=== PATIENT | male | born 1960 | race Caucasian/White ===

== ENCOUNTER 2016-05-11 15:09 | Emergency (ER) | payer SELFPAY ==
[2016-05-11 15:55] VITALS: BP 128/89
== END 2016-05-11 17:31 | disposition left against medical advice (07) ==
LOC: ED 15:09
DX: M79.605 Pain in left leg (principal); Z53.21 Procedure and treatment not carried out due to patient leaving prior to being seen by health care provider

== ENCOUNTER 2016-05-12 08:31 | Emergency (ER) | payer SELFPAY ==
[2016-05-12 10:18] LABS: Urine Bacteria Absent (Absent); Urine Bilirubin Negative (Negative); Urine Glucose Negative (Negative); Urine Nitrite Negative (Negative)
[2016-05-12 11:02] LABS: Hematocrit 45 % (42-52); Hemoglobin 15.4 g/dl (14.0-18.0); Mean Corpuscular HGB Conc 34 g/dl (31-36); Mean Corpuscular Hemoglobin 33 pg (27-31); Mean Corpuscular Volume 96 fL (80-94); Mean Platelet Volume 7 um3 (7.4-10.4); Red Blood Count 4.72 10^6/ul (4.0-5.4); Red Cell Distribution Width 13 % (10.5-15); White Blood Count 7.9 10^3/ul (3.5-10.8)
[2016-05-12 11:13] LABS: Albumin 4.7 g/dL (3.2-5.2); BUN/Creatinine Ratio 18.9 (8-20); C Reactive Protein 1.52 mg/L (< 5.00); Calcium 9.9 mg/dL (8.6-10.3); EGFR African American 88.1 (>60); EGFR Non-African American 68.5 (>60); Globulin 3.1 g/dL (2-4); Potassium 4.1 mmol/L (3.5-5.0); Total Bilirubin 1.3 mg/dL (0.2-1.0); Total Protein 7.8 g/dL (6.4-8.9)
--- NOTE | 2016-05-12 11:16 | ED ---
Abdominal Pain/Male - HPI Summary HPI Summary: Patient presents with epigastric and left flank pain. The flank pain has been present for approximately 2 months, and the epigastric pain begins 30-60 minutes after eating and resolves after several hours spontaneously. He has a history of kidney stones and worries he's also developing another stone in addition to his epigastric pain. He denies SOB, CP, fever, back pain, blood in his urine or urinary symptoms. He had one episode of vomiting several weeks ago , but no nausea, diarrhea or constipation. - History of Current Complaint Chief Complaint: EDFlankPain Stated Complaint: LT SIDE FLANK PAIN Time Seen by Provider: 05/12/16 10:11 Hx Obtained From: Patient Onset/Duration: Gradual Onset, Lasting Weeks, Still Present Timing: Intermittent, Lasting Hours Severity Initially: Moderate Severity Currently: Severe Pain Intensity: 7 Location: Epigastric, Flank - left Radiates: No Character: Dull Aggravating Factor(s): Food Alleviating Factor(s): Spontaneous Resolution Associated Signs And Symptoms: Positive: Vomiting - x 1 - Allergies/Home Medications Allergies/Adverse Reactions: Allergies Allergy/AdvReac Type Severity Reaction Status Date / Time Cephalexin [From Keflex] Allergy Severe Rash Verified 05/11/16 15:55 Iodide Allergy Severe Rash Verified 05/11/16 15:55 Shellfish Allergy Allergy Severe Rash Verified 05/11/16 15:55 Eggs or Egg-derived Products Allergy Vomiting Verified 05/11/16 15:55 PMH/Surg Hx/FS Hx/Imm Hx Endocrine/Hematology History: Denies: Hx Diabetes Cardiovascular History: Reports: Hx Hypercholesterolemia, Hx Hypertension Denies: Hx Congestive Heart Failure Respiratory History: Denies: Hx Asthma History: Denies: Hx Renal Disease - Surgical History Surgery Procedure, Year, and Place: LT.KNEE/MENISCUS 2010, LT 4TH FINGER CRUSH INJ.W/SX 2006. June 2015 Cardiac Catherization Infectious Disease History: Denies: History Other Infectious Disease, Traveled Outside the [place] in Last 30 Days - Family History Known Family History: Positive: Cardiac Disease, Hypertension, Diabetes, Renal Disease - Social History Occupation: Unemployed Lives: With Family Alcohol Use: None Substance Use Type: Reports: None Smoking Status (MU): Never Smoked Tobacco Review of Systems Negative: Fever, Chills Negative: Chest Pain Negative: Shortness Of Breath Positive: Abdominal Pain - epigastric, Vomiting - x 1. Negative: Diarrhea, Nausea Positive: flank pain - left All Other Systems Reviewed And Are Negative: Yes Physical Exam Triage Information Reviewed: Yes Vital Signs On Initial Exam: Initial Vitals Temp Pulse Resp BP Pulse Ox 98.6 F 87 20 159/98 99 05/12/16 09:28 05/12/16 09:28 05/12/16 09:28 05/12/16 09:28 05/12/16 09:28 Vital Signs Reviewed: Yes Appearance: Positive: Well-Appearing, Well-Nourished, Pain Distress Skin: Positive: Warm, Skin Color Reflects Adequate Perfusion, Dry, Soft Head/Face: Positive: Normal Head/Face Inspection Eyes: Positive: EOMI, QI, Conjunctiva Clear ENT: Positive: Hearing grossly normal Neck: Positive: Supple, Nontender, No Lymphadenopathy Respiratory/Lung Sounds: Positive: Clear to Auscultation, Breath Sounds Present Cardiovascular: Positive: RRR Abdomen Description: Positive: Soft, CVA Tenderness (L). Negative: Nontender - mildly positive Hoffman's sign, CVA Tenderness (R), Distended, Guarding, McBurney 's Point Tenderness, Pulsatile Mass Bowel Sounds: Positive: Present Musculoskeletal: Positive: Strength/ROM Intact. Negative: Edema Left, Edema Right Neurological: Positive: Sensory/Motor Intact, Alert, Oriented to Person Place, Time, [place] Bundle Intact Distally Psychiatric: Positive: Affect/Mood Appropriate AVPU Assessment: Alert - Bailee Coma Scale Coma Scale Total: 15 Diagnostics - Vital Signs Vital Signs Temp Pulse Resp BP Pulse Ox 05/12/16 09:28 98.6 F 87 20 159/98 99 - Laboratory Lab Results: Lab Results 05/12/16 05/12/16 Range/Units 10:00 10:18 WBC 7.9 (3.5-10.8) 10^3/ul RBC 4.72 (4.0-5.4) 10^6/ul Hgb 15.4 (14.0-18.0) g/dl Hct 45 (42-52) % MCV 96 H (80-94) fL MCH 33 H (27-31) pg MCHC 34 (31-36) g/dl RDW 13 (10.5-15) % Plt Count 327 (150-450) 10^3/ul MPV 7 L (7.4-10.4) um3 Neut % (Auto) 67.4 (38-83) % Lymph % (Auto) 20.2 L (25-47) % [place] % (Auto) 9.8 H (1-9) % Eos % (Auto) 2.2 (0-6) % Baso % (Auto) 0.4 (0-2) % Absolute Neuts (auto) 5.3 (1.5-7.7) 10^3/ul Absolute Lymphs (auto) 1.6 (1.0-4.8) 10^3/ul Absolute Monos (auto) 0.8 (0-0.8) 10^3/ul Absolute Eos (auto) 0.2 (0-0.6) 10^3/ul Absolute Basos (auto) 0 (0-0.2) 10^3/ul Absolute Nucleated RBC 0 10^3/ul Nucleated RBC % 0.1 Urine Color Yellow Urine Appearance Cloudy Urine pH 5.0 (5-9) Ur Specific [place] 1.016 (1.010-1.030) Urine Protein Negative (Negative) Urine Ketones Negative (Negative) Urine Blood 3+ H (Negative) Urine Nitrate Negative (Negative) Urine Bilirubin Negative (Negative) Urine Urobilinogen Negative (Negative) Ur Leukocyte Esterase Negative (Negative) Urine WBC (Auto) Absent (Absent) Urine RBC (Auto) 3+(>10/hpf) H (Absent) Ur Squamous Epith Cells Present H (Absent) Uric Acid Crystals Present H (Absent) Urine Bacteria Absent (Absent) Urine Glucose Negative (Negative) Result Diagrams: 05/12/16 10:18 05/12/16 10:18 Lab Statement: Any lab studies that have been ordered have been reviewed, and results considered in the medical decision making process. - Ultrasound No standard instances Ultrasound Interpretation: No Acute Changes Ultrasound Interpretation Completed By: Radiologist Re-Evaluation - Re-Evaluation First Eval Re-Evaluation Time: 12:45 Change: Improved - pain has decreased Abdominal Pain Fem Course/Dx - Diagnoses Differential Diagnosis/HQI/PQRI: Appendicitis, Constipation, Gall Bladder Disease, Hepatitis, Pancreatitis, Renal Colic, Ureteral Stone, Urinary Tract Infection Provider Diagnoses: Abdominal pain Discharge - Discharge Plan Condition: Stable Disposition: HOME Prescriptions: HYDROcodone/ACETAMIN 5-325 MG* [[place] 5-325 TAB*] 1 tab PO Q6H PRN #12 tab MDD 4 tabs PRN Reason: Pain Patient Education Materials: Abdominal Pain (ED) Referrals: Fay Tilley MD [Primary Care Provider] - Additional Instructions: Please take 800mg of ibuprofen three times daily with meals for the next 5-7 days to decrease pain. Follow-up with your primary care provider in the next 3- 5 days for evaluation and to discuss a plan of care going forward. You can use [place] for pain not controlled by ibuprofen. Return to the emergency department if your symptoms worsen.
--- NOTE | 2016-05-12 11:54 | RAD ---
Indication: Epigastric pain postprandial. Comparison: January 15, 2016 CT. Technique: Complete abdominal ultrasound. Report: Normal diameter abdominal aorta. Appropriate direction flow documented in the portal and hepatic veins. 17 cm cephalocaudal liver is echogenic consistent with fatty infiltration. No focal hepatic lesions evident. Adequately distended gallbladder with 2.5 mm normal thickness wall is remarkable for a low suspicion 2 mm intermediate echogenicity structure along the mid anterior wall most consistent with a polyp. No echogenic shadowing foci to indicate cholelithiasis. Negative for pericholecystic fluid. The pancreatic tail is partially obscured due to bowel gas with the visualized pancreas unremarkable. Unremarkable 8.5 x 3.4 x 4.1 cm spleen. Negative for ascites. 10.0 x 4.3 x 4.4 cm RIGHT kidney with normal cortical echogenicity is unremarkable. Negative for focal lesions, conspicuous stones, or hydronephrosis. 10.6 x 5.4 x 4.6 cm LEFT kidney demonstrates normal cortical echogenicity. 1.5 x 1.4 cm echogenic shadowing calyceal stone at the inferior pole corresponding with prior CT finding. Negative for hydronephrosis. No renal cortical lesions evident. IMPRESSION: 1. Fatty infiltration of the liver. 2. 2 mm probable cholesterol or inflammatory polyp. Gallbladder polyps 6mm or smaller have extremely low risk of malignancy and typically do not warrant follow up. On occasion polyps may actually represent small gallstones adherent to the gallbladder wall at surgery. 3. Grossly unchanged 1.5 x 1.4 cm calyceal stone lower pole LEFT kidney. Negative for hydronephrosis.
[2016-05-12] MEDS ORDERED: Ketorolac INJ* 30 MG/ML 1 ML VIAL IV ONE (12:04)
[2016-05-12] MEDS ORDERED: NS 0.9% 1000 ML* 1,000 ML IV ONE (12:04)
[2016-05-12] MEDS ORDERED: Ketorolac INJ* 30 MG/ML 1 ML VIAL ONE (12:06)
[2016-05-12] MEDS ORDERED: HYDROcodone/ACETAMIN 5-325 MG* 1 TAB PO ONE (13:26)
[2016-05-12 13:31] VITALS: BP 110/93
== END 2016-05-12 13:43 | disposition home or self-care (01) ==
LOC: ED 08:31
DX: R10.13 Epigastric pain (principal); Z88.1 Allergy status to other antibiotic agents
CPT/HCPCS: 36415; 76700; 80053; 81003; 81015; 82150; 83605; 83690; 84484; 85025; 86140; 93005; 96360; 96374; 99283; J1885

== ENCOUNTER 2016-07-28 12:12 | Emergency (ER) | payer OTHER ==
[2016-07-28] MEDS ORDERED: Thiamine IV* 100 MG, Folic Acid IV* 1 MG, Multiple Vitamin IV ADULT* 10 ML in NS 0.9% 1... IV ONE (13:17)
[2016-07-28] MEDS ORDERED: Magnesium Sulfate 2 GM IV* 2 GM/50 ML BAG IVPB ONE (13:17)
--- NOTE | 2016-07-28 13:45 | RAD ---
Indication: Shortness of breath, chest pain. Anxiety. Alcohol and analgesic pharmaceutical abuse. Previous myocardial infarction and PE in 2016. Comparison: January 15, [address] March 05, [address] Technique: Upright AP 1325 hours Report: Clear lungs and pleural spaces. Negative for pneumothorax. The heart, pulmonary vasculature, and mediastinal contours are unremarkable. Unremarkable osseous structures and soft tissue contours. IMPRESSION: No evidence for acute intrathoracic disease.
[2016-07-28 14:00] LABS: Hematocrit 48 % (42-52); Hemoglobin 16.4 g/dl (14.0-18.0); Mean Corpuscular HGB Conc 34 g/dl (31-36); Mean Corpuscular Hemoglobin 33 pg (27-31); Mean Corpuscular Volume 95 fL (80-94); Mean Platelet Volume 7 um3 (7.4-10.4); Red Blood Count 5.04 10^6/ul (4.0-5.4); Red Cell Distribution Width 14 % (10.5-15)
[2016-07-28] MEDS ORDERED: LORazepam INJ* 2 MG/ML 1 ML VIAL IV ONE ×2 (14:05→19:51)
[2016-07-28 14:09] LABS: Urine Bacteria Absent (Absent); Urine Bilirubin Negative (Negative); Urine Glucose Negative (Negative); Urine Nitrite Negative (Negative)
[2016-07-28] MEDS ORDERED: Magnesium Sulfate IV* 0.5 GM/ML 2 ML VIAL (1 GM) ONE (14:12)
[2016-07-28 14:13] LABS: ALT 20 U/L (7-52); AST 23 U/L (13-39); Albumin 4.6 g/dL (3.2-5.2); Alkaline Phosphatase 77 U/L (34-104); Anion Gap 14 mmol/L (2-11); BUN/Creatinine Ratio 14.5 (8-20); Blood Urea Nitrogen 17 mg/dL (6-24); CO2 Carbon Dioxide 20 mmol/L (22-32); Calcium 9.2 mg/dL (8.6-10.3); Chloride 101 mmol/L (101-111); EGFR African American 82.9 (>60); EGFR Non-African American 64.5 (>60); Glucose 95 mg/dL (70-100); Potassium 4.5 mmol/L (3.5-5.0); Sodium 135 mmol/L (133-145); Total Protein 7.6 g/dL (6.4-8.9)
[2016-07-28 14:15] LABS: Benzodiazepine Urine Screen None Detected (None Detect)
[2016-07-28 14:16] LABS: Acetaminophen < 15 mcg/mL; Alcohol 359 mg/dL (<10); Salicylate < 2.50 mg/dL (<30)
[2016-07-28 14:26] LABS: TSH (Thyroid Stimulating Horm) 0.31 mcIU/mL (0.34-5.60)
[2016-07-28] MEDS ORDERED: Morphine INJ* 4 MG/ML 1 ML SYRINGE IV ONE ×3 (15:11→19:51)
[2016-07-28] MEDS ORDERED: Morphine INJ* 4 MG/ML 1 ML SYRINGE ONE ×2 (15:12→17:36)
--- NOTE | 2016-07-28 22:48 | ED ---
Kelley Chase Claudia, scribed for Miquel Dang MD on 07/28/16 at 1321 . HPI Chest Pain - HPI Summary HPI Summary: 55 year old male presents to the ED with mid-sternal CP. Pt notes sudden onset of sharp intermittent pain (7/10) 2 days ago. He notes that he woke up with the pain this am and it has been fairly constant since. He notes PMHx of DVT ( January 2016) and [place]. Pt is unsure if he has been experiencing any calf swelling Pt does admit to difficulty breathing. He notes no aggravating Sx but admits to taking pain killers at home which have not alleviated his Sx. He notes that he would not nml come to the ED but he is very uncomfortable and does not feel well. - History of Current Complaint Chief Complaint: EDChestWallPain Hx Obtained From: Patient Onset/Duration: Started Days Ago - 2 days ago Timing: Intermittent Pain Intensity: 7 Pain Scale Used: 0-10 Numeric Chest Pain Location: Discrete at:, Mid Sternal Chest Pain Radiates: No Character: Sharp/Stabbing Aggravating Factor(s): Nothing Alleviating Factor(s): Nothing Associated Signs and Symptoms: Positive: Chest Pain, Shortness of Breath - Additional Pertinent History Primary Care Physician: [id number] - Allergy/Home Medications Allergies/Adverse Reactions: Allergies Allergy/AdvReac Type Severity Reaction Status Date / Time Cephalexin [From Keflex] Allergy Severe Rash Verified 05/11/16 15:55 Iodide Allergy Severe Rash Verified 05/11/16 15:55 Shellfish Allergy Allergy Severe Rash Verified 05/11/16 15:55 Eggs or Egg-derived Products Allergy Vomiting Verified 05/11/16 15:55 PMH/Surg Hx/FS Hx/Imm Hx Previously Healthy: Yes Endocrine/Hematology History: Denies: Hx Diabetes Cardiovascular History: Reports: Hx Hypercholesterolemia, Hx Hypertension Denies: Hx Congestive Heart Failure Respiratory History: Denies: Hx Asthma History: Denies: Hx Renal Disease - Surgical History Surgery Procedure, Year, and Place: LT.KNEE/MENISCUS 2010, LT 4TH FINGER CRUSH INJ.W/SX 2006. June 2015 Cardiac Catherization Infectious Disease History: Denies: History Other Infectious Disease, Traveled Outside the [place] in Last 30 Days - Family History Known Family History: Positive: Cardiac Disease, Hypertension, Diabetes, Renal Disease - Social History Occupation: Employed Full-time Lives: With Family - female friend Alcohol Use: Weekly Substance Use Type: Reports: None Smoking Status (MU): Never Smoked Tobacco Review of Systems Constitutional: Negative Eyes: Negative ENT: Negative Positive: Chest Pain Positive: Shortness Of Breath Gastrointestinal: Negative Genitourinary: Negative Musculoskeletal: Negative Skin: Negative Neurological: Negative Psychological: Normal All Other Systems Reviewed And Are Negative: Yes Physical Exam Triage Information Reviewed: Yes Vital Signs On Initial Exam: Initial Vitals Temp Pulse Resp BP Pulse Ox 98.2 F 102 26 151/92 99 07/28/16 12:14 07/28/16 12:14 07/28/16 12:14 07/28/16 12:14 07/28/16 12:14 Vital Signs Reviewed: Yes Appearance: Positive: Well-Appearing, No Pain Distress Skin: Positive: Warm, Skin Color Reflects Adequate Perfusion, Dry Head/Face: Positive: Normal Head/Face Inspection Eyes: Positive: Normal ENT: Positive: Normal ENT inspection Neck: Positive: Supple, Nontender Respiratory/Lung Sounds: Positive: Clear to Auscultation - grossly clear with phonation during breaths, Breath Sounds Present Cardiovascular: Positive: RRR Abdomen Description: Positive: Nontender, Soft Musculoskeletal: Positive: Normal Neurological: Positive: Normal Psychiatric: Positive: Anxious - and seems intoxicated Diagnostics - Vital Signs Vital Signs Temp Pulse Resp BP Pulse Ox 07/28/16 12:14 98.2 F 102 26 151/92 99 - Laboratory Lab Results: Lab Results 07/28/16 07/28/16 07/28/16 Range/Units 13:45 13:45 13:45 WBC 6.0 (3.5-10.8) 10^3/ul RBC 5.04 (4.0-5.4) 10^6/ul Hgb 16.4 (14.0-18.0) g/dl Hct 48 (42-52) % MCV 95 H (80-94) fL MCH 33 H (27-31) pg MCHC 34 (31-36) g/dl RDW 14 (10.5-15) % Plt Count 363 (150-450) 10^3/ul MPV 7 L (7.4-10.4) um3 Neut % (Auto) 50.2 (38-83) % Lymph % (Auto) 40.0 (25-47) % [place] % (Auto) 8.4 (1-9) % Eos % (Auto) 1.0 (0-6) % Baso % (Auto) 0.4 (0-2) % Absolute Neuts (auto) 3.0 (1.5-7.7) 10^3/ul Absolute Lymphs (auto) 2.4 (1.0-4.8) 10^3/ul Absolute Monos (auto) 0.5 (0-0.8) 10^3/ul Absolute Eos (auto) 0.1 (0-0.6) 10^3/ul Absolute Basos (auto) 0 (0-0.2) 10^3/ul Absolute Nucleated RBC 0.01 10^3/ul Nucleated RBC % 0.2 Sodium 135 (133-145) mmol/L Potassium 4.5 (3.5-5.0) mmol/L Chloride 101 (101-111) mmol/L Carbon Dioxide 20 L (22-32) mmol/L Anion Gap 14 H (2-11) mmol/L BUN 17 (6-24) mg/dL Creatinine 1.17 (0.67-1.17) mg/dL Est GFR ( Amer) 82.9 (>60) Est GFR (Non-Af Amer) 64.5 (>60) BUN/Creatinine Ratio 14.5 (8-20) Glucose 95 (70-100) mg/dL Lactic Acid (0.5-2.0) mmol/L Calcium 9.2 (8.6-10.3) mg/dL Total Bilirubin 0.60 (0.2-1.0) mg/dL AST 23 (13-39) U/L ALT 20 (7-52) U/L Alkaline Phosphatase 77 (34-104) U/L Troponin I 0.00 (<0.04) ng/mL Total Protein 7.6 (6.4-8.9) g/dL Albumin 4.6 (3.2-5.2) g/dL Globulin 3.0 (2-4) g/dL Albumin/Globulin Ratio 1.5 (1-3) TSH 0.31 L (0.34-5.60) mcIU/mL Urine Color Straw Urine Appearance Clear Urine pH 5.0 (5-9) Ur Specific [place] 1.005 L (1.010-1.030) Urine Protein Negative (Negative) Urine Ketones Negative (Negative) Urine Blood 1+ H (Negative) Urine Nitrate Negative (Negative) Urine Bilirubin Negative (Negative) Urine Urobilinogen Negative (Negative) Ur Leukocyte Esterase Negative (Negative) Urine WBC (Auto) Absent (Absent) Urine RBC (Auto) Trace(0-2/hpf) (Absent) Urine Bacteria Absent (Absent) Urine Glucose Negative (Negative) Salicylates < 2.50 (<30) mg/dL Urine Opiates Screen (None Detect) Acetaminophen < 15 mcg/mL Ur Barbiturates Screen (None Detect) Ur Phencyclidine Scrn (None Detect) Ur Amphetamines Screen (None Detect) U Benzodiazepines Scrn (None Detect) Urine Cocaine Screen (None Detect) U Cannabinoids Screen (None Detect) Serum Alcohol 359 H (<10) mg/dL 07/28/16 07/28/16 07/28/16 Range/Units 13:45 13:45 16:45 WBC (3.5-10.8) 10^3/ul RBC (4.0-5.4) 10^6/ul Hgb (14.0-18.0) g/dl Hct (42-52) % MCV (80-94) fL MCH (27-31) pg MCHC (31-36) g/dl RDW (10.5-15) % Plt Count (150-450) 10^3/ul MPV (7.4-10.4) um3 Neut % (Auto) (38-83) % Lymph % (Auto) (25-47) % [place] % (Auto) (1-9) % Eos % (Auto) (0-6) % Baso % (Auto) (0-2) % Absolute Neuts (auto) (1.5-7.7) 10^3/ul Absolute Lymphs (auto) (1.0-4.8) 10^3/ul Absolute Monos (auto) (0-0.8) 10^3/ul Absolute Eos (auto) (0-0.6) 10^3/ul Absolute Basos (auto) (0-0.2) 10^3/ul Absolute Nucleated RBC 10^3/ul Nucleated RBC % Sodium (133-145) mmol/L Potassium (3.5-5.0) mmol/L Chloride (101-111) mmol/L Carbon Dioxide (22-32) mmol/L Anion Gap (2-11) mmol/L BUN (6-24) mg/dL Creatinine (0.67-1.17) mg/dL Est GFR ( Amer) (>60) Est GFR (Non-Af Amer) (>60) BUN/Creatinine Ratio (8-20) Glucose (70-100) mg/dL Lactic Acid 3.1 H* (0.5-2.0) mmol/L Calcium (8.6-10.3) mg/dL Total Bilirubin (0.2-1.0) mg/dL AST (13-39) U/L ALT (7-52) U/L Alkaline Phosphatase (34-104) U/L Troponin I 0.00 (<0.04) ng/mL Total Protein (6.4-8.9) g/dL Albumin (3.2-5.2) g/dL Globulin (2-4) g/dL Albumin/Globulin Ratio (1-3) TSH (0.34-5.60) mcIU/mL Urine Color Urine Appearance Urine pH (5-9) Ur Specific [place] (1.010-1.030) Urine Protein (Negative) Urine Ketones (Negative) Urine Blood (Negative) Urine Nitrate (Negative) Urine Bilirubin (Negative) Urine Urobilinogen (Negative) Ur Leukocyte Esterase (Negative) Urine WBC (Auto) (Absent) Urine RBC (Auto) (Absent) Urine Bacteria (Absent) Urine Glucose (Negative) Salicylates (<30) mg/dL Urine Opiates Screen None detected (None Detect) Acetaminophen mcg/mL Ur Barbiturates Screen None detected (None Detect) Ur Phencyclidine Scrn None detected (None Detect) Ur Amphetamines Screen None detected (None Detect) U Benzodiazepines Scrn None detected (None Detect) Urine Cocaine Screen None detected (None Detect) U Cannabinoids Screen None detected (None Detect) Serum Alcohol (<10) mg/dL Result Diagrams: 07/28/16 13:45 07/28/16 13:45 Lab Statement: Any lab studies that have been ordered have been reviewed, and results considered in the medical decision making process. - Radiology CXR Xray Interpretation: No Acute Changes - NO EVIDENCE FOR ACUTE INTRATHORACIC DISEASE Radiology Interpretation Completed By: Radiologist - EKG 12:29 Cardiac Rate: Tachycardia EKG Rhythm: Sinus Tachycardia - 108 beats/min EKG Interpretation: diffuse non-specific changes 17:09 Cardiac Rate: Tachycardia EKG Rhythm: Sinus Tachycardia - 101 beats/min EKG Interpretation: non specific changes Chest Pain Course/Dx - Course Course Of Treatment: Mr. De presented to the ED in the company of his ex- girlfriend quite intoxicated. She brought him in with a concern for suicidal ideation. They broke up a few weeks ago because he was abusing pain medications. He has been drinking heavily since the break up and filled a script for narcotics recently that is almost gone. His medical W/U is OK and we are waiting for him to sober up to have a MHE. - Diagnoses Provider Diagnoses: Alcohol intoxication, Chest pain - Provider Notifications Discussed Care Of Patient With: Dr. Palacios at change of shift Instructed by Provider To: Other - MEDICALLY CLEARED FOR MHE AT 2400 Discharge - Discharge Plan Condition: Stable Disposition: HOME Discharge Disposition Comment: Sign-out, waiting for medical clerance at 2400 Patient Education Materials: Chest Wall Pain (ED) Referrals: Fay Tilley MD [Primary Care Provider] - The documentation as recorded by the Kelley chavez Claudia accurately reflects the service I personally performed and the decisions made by me, Miquel Dang MD.
[2016-07-29 02:39] VITALS: BP 159/96
== END 2016-07-29 02:36 | disposition home or self-care (01) ==
LOC: ED 12:12
DX: R07.9 Chest pain, unspecified (principal); F10.129 Alcohol abuse with intoxication, unspecified; F41.9 Anxiety disorder, unspecified; R06.02 Shortness of breath
CPT/HCPCS: 36415; 71010; 80053; 80307; 80320; 80329; 81003; 81015; 83605; 84443; 84484; 85025; 93005; 96374; 96375; 99284; G0480; J2060; J2270; J3475

== ENCOUNTER 2016-10-27 14:14 | Emergency (ER) | payer OTHER ==
[2016-10-27 16:18] LABS: Hematocrit 42 % (42-52); Hemoglobin 14.1 g/dl (14.0-18.0); Mean Corpuscular HGB Conc 34 g/dl (31-36); Mean Corpuscular Hemoglobin 34 pg (27-31); Mean Corpuscular Volume 102 fL (80-94); Mean Platelet Volume 7 um3 (7.4-10.4); Red Blood Count 4.09 10^6/ul (4.0-5.4); Red Cell Distribution Width 14 % (10.5-15); White Blood Count 12.2 10^3/ul (3.5-10.8)
[2016-10-27 16:31] LABS: Albumin 4.7 g/dL (3.2-5.2); BUN/Creatinine Ratio 14.7 (8-20); Calcium 9.4 mg/dL (8.6-10.3); EGFR African American 69.7 (>60); EGFR Non-African American 54.2 (>60); Potassium 3.9 mmol/L (3.5-5.0); Total Bilirubin 0.8 mg/dL (0.2-1.0); Total Protein 7.7 g/dL (6.4-8.9)
[2016-10-27 16:32] LABS: Urine Bacteria Absent (Absent); Urine Bilirubin Negative (Negative); Urine Glucose Negative (Negative); Urine Nitrite Negative (Negative)
[2016-10-27] MEDS ORDERED: HYDROmorphone* 1 MG/ML 1 ML SYR IV ONE (17:06)
[2016-10-27] MEDS ORDERED: Ondansetron INJ* 2 MG/ML VIAL IV ONE (17:06)
[2016-10-27] MEDS ORDERED: NS 0.9% 1000 ML* 1,000 ML IV ONE (17:06)
[2016-10-27] MEDS ORDERED: HYDROmorphone* 1 MG/ML 1 ML SYR ONE (17:13)
[2016-10-27 17:52] LABS: C Reactive Protein 2.4 mg/L (< 5.00)
[2016-10-27] MEDS ORDERED: HYDROmorphone* 1 MG/ML 1 ML SYR IV SLOW PU ONE (17:54)
--- NOTE | 2016-10-27 17:56 | RAD ---
Indication: Left flank pain. CT of the abdomen and pelvis was performed without oral or IV contrast administration. Coronal and sagittal reconstructed images were obtained. The lung bases demonstrate no pleural fluid, nodules or masses. Heart is of normal size without evidence of pericardial effusion. Liver is normal in size. It is diffusely decreased in density consistent with hepatic steatosis. The spleen is normal in size. No adrenal masses are noted. The kidneys demonstrate moderate degree of left hydronephrosis with left hydroureter. There is a calculi in the distal left ureter just adjacent to the ureterovesicular junction measuring 5 mm. The right kidney demonstrates no hydronephrosis. Aorta and inferior vena cava are grossly unremarkable. The retroperitoneal lymphadenopathy is noted. The appendix is visualized and is normal. CT of the pelvis demonstrates no dilated loops of bowel. The urinary bladder is unremarkable. No free fluid is identified. IMPRESSION: 5 mm calculi within the left ureterovesicular Junction with left hydronephrosis and hydroureter. Multiple additional calculi is noted in the lower pole of the left kidney.
--- NOTE | 2016-10-27 18:12 | RAD ---
Indication: Left flank pain. Flat plate of the abdomen demonstrates bowel gas pattern to be unremarkable. Several phleboliths are noted in the pelvis. There appears to be a single calcification at the level of the left ureterovesicular junction. IMPRESSION: Multiple phleboliths are seen in the pelvis.
[2016-10-27 19:30] VITALS: BP 135/84
--- NOTE | 2016-10-27 19:48 | ED ---
Emanuel Chase SooYoung, scribed for Rand Hernadez MD on 10/27/16 at 1711 . Back Pain - HPI Summary HPI Summary: A 55 y/o M presents to ED with L flank pain radiating to L groin onset 0300 early this AM. Pert PMHx: kidney stones. Associated sx: multiple episodes hematuria. Rates the pain as worse than 10/10. Pt denies taking blood thinners. Other PMHx: HTN, DVT. - History of Current Complaint Chief Complaint: EDFlankPain Stated Complaint: LT FLANK PAIN, URINATING BLOOD Hx Obtained From: Patient, Family/[employer] Officer - girlfriend Onset/Duration: Sudden Onset, Lasting Hours, Still Present Onset/Duration: Started Hours Ago, Atraumatic, Still Present Timing: Constant Back Pain Location: Is Discrete @ - L flank/L groin Severity Initially: Severe Severity Currently: Severe Pain Intensity: 10 Pain Scale Used: 0-10 Numeric Character: Sharp Aggravating Symptom(s): Nothing Alleviating Symptom(s): Nothing Associated Signs And Symptoms: Positive: Other - pos: hematuria. Negative: Fever Related History: Similar Episode Dx As - kidney stone - Allergies/Home Medications Allergies/Adverse Reactions: Allergies Allergy/AdvReac Type Severity Reaction Status Date / Time Cephalexin [From Keflex] Allergy Severe Rash Verified 10/27/16 17:32 Iodide Allergy Severe Rash Verified 10/27/16 17:32 Shellfish Allergy Allergy Severe Rash Verified 10/27/16 17:32 Eggs or Egg-derived Products Allergy Vomiting Verified 10/27/16 17:32 PMH/Surg Hx/FS Hx/Imm Hx Previously Healthy: No Endocrine/Hematology History: Denies: Hx Diabetes Cardiovascular History: Reports: Hx Hypercholesterolemia, Hx Hypertension Denies: Hx Congestive Heart Failure, Hx Pacemaker/ICD, Other Cardiovascular Problems/Disorders Respiratory History: Reports: Other Respiratory Problems/Disorders - PE 2016 Denies: Hx Asthma History: Reports: Hx Chronic Renal Failure - creat elevated Psychiatric History: Denies: Hx Eating Disorder - Surgical History Surgery Procedure, Year, and Place: LT.KNEE/MENISCUS 2010, LT 4TH FINGER CRUSH INJ.W/SX 2006. June 2015 Cardiac Catherization Infectious Disease History: No Infectious Disease History: Denies: History Other Infectious Disease, Traveled Outside the [place] in Last 30 Days - Family History Known Family History: Positive: Cardiac Disease, Hypertension, Diabetes, Renal Disease - Social History Occupation: Employed Full-time Lives: Alone Alcohol Use: Weekly Hx Substance Use: No Substance Use Type: Reports: None Hx Tobacco Use: No Smoking Status (MU): Never Smoked Tobacco Review of Systems Constitutional: Negative Negative: Fever Cardiovascular: Negative Respiratory: Negative Gastrointestinal: Negative Positive: flank pain - L radiating to groin , hematuria Skin: Negative Neurological: Negative Psychological: Normal All Other Systems Reviewed And Are Negative: Yes Physical Exam Triage Information Reviewed: Yes Vital Signs On Initial Exam: Initial Vitals Temp Pulse Resp BP Pulse Ox 97.8 F 76 17 121/79 99 10/27/16 14:27 10/27/16 14:27 10/27/16 14:27 10/27/16 14:27 10/27/16 14:27 Vital Signs Reviewed: Yes Appearance: Positive: Well-Appearing, Well-Nourished, Pain Distress - MODERATE Skin: Positive: Warm, Skin Color Reflects Adequate Perfusion Head/Face: Positive: Normal Head/Face Inspection Eyes: Positive: Conjunctiva Clear ENT: Positive: Normal ENT inspection Neck: Positive: Supple Respiratory/Lung Sounds: Positive: Clear to Auscultation, Breath Sounds Present Cardiovascular: Positive: RRR, Pulses are Symmetrical in both Upper and Lower Extremities. Negative: Murmur Abdomen Description: Positive: Soft, CVA Tenderness (L). Negative: CVA Tenderness (R), Distended, Guarding, McBurney's Point Tenderness, Peritoneal Signs, Pulsatile Mass Bowel Sounds: Positive: Present Musculoskeletal: Positive: Strength/ROM Intact Neurological: Positive: Sensory/Motor Intact, Alert, Oriented to Person Place, Time Psychiatric: Positive: Normal Diagnostics - Vital Signs Vital Signs Temp Pulse Resp BP Pulse Ox 10/27/16 16:54 97.5 F 72 20 131/79 99 10/27/16 16:17 97.9 F 77 17 121/79 100 10/27/16 14:30 97.9 F 77 17 121/79 100 10/27/16 14:27 97.8 F 76 17 121/79 99 - Laboratory Lab Results: Lab Results 10/27/16 10/27/16 10/27/16 Range/Units 16:05 16:05 16:05 WBC 12.2 H (3.5-10.8) 10^3/ul RBC 4.09 (4.0-5.4) 10^6/ul Hgb 14.1 (14.0-18.0) g/dl Hct 42 (42-52) % MCV 102 H (80-94) fL MCH 34 H (27-31) pg MCHC 34 (31-36) g/dl RDW 14 (10.5-15) % Plt Count 285 (150-450) 10^3/ul MPV 7 L (7.4-10.4) um3 Neut % (Auto) 74.5 (38-83) % Lymph % (Auto) 12.8 L (25-47) % [place] % (Auto) 10.0 H (1-9) % Eos % (Auto) 1.9 (0-6) % Baso % (Auto) 0.8 (0-2) % Absolute Neuts (auto) 9.1 H (1.5-7.7) 10^3/ul Absolute Lymphs (auto) 1.6 (1.0-4.8) 10^3/ul Absolute Monos (auto) 1.2 H (0-0.8) 10^3/ul Absolute Eos (auto) 0.2 (0-0.6) 10^3/ul Absolute Basos (auto) 0.1 (0-0.2) 10^3/ul Absolute Nucleated RBC 0.01 10^3/ul Nucleated RBC % 0.1 Sodium 135 (133-145) mmol/L Potassium 3.9 (3.5-5.0) mmol/L Chloride 103 (101-111) mmol/L Carbon Dioxide 23 (22-32) mmol/L Anion Gap 9 (2-11) mmol/L BUN 20 (6-24) mg/dL Creatinine 1.36 H (0.67-1.17) mg/dL Est GFR ( Amer) 69.7 (>60) Est GFR (Non-Af Amer) 54.2 (>60) BUN/Creatinine Ratio 14.7 (8-20) Glucose 96 (70-100) mg/dL Calcium 9.4 (8.6-10.3) mg/dL Total Bilirubin 0.80 (0.2-1.0) mg/dL AST 25 (13-39) U/L ALT 20 (7-52) U/L Alkaline Phosphatase 57 (34-104) U/L Total Protein 7.7 (6.4-8.9) g/dL Albumin 4.7 (3.2-5.2) g/dL Globulin 3.0 (2-4) g/dL Albumin/Globulin Ratio 1.6 (1-3) Urine Color Yellow Urine Appearance Cloudy Urine pH 5.0 (5-9) Ur Specific [place] 1.017 (1.010-1.030) Urine Protein Negative (Negative) Urine Ketones Negative (Negative) Urine Blood 1+ H (Negative) Urine Nitrate Negative (Negative) Urine Bilirubin Negative (Negative) Urine Urobilinogen Negative (Negative) Ur Leukocyte Esterase Negative (Negative) Urine WBC (Auto) Absent (Absent) Urine RBC (Auto) 1+(3-5/hpf) H (Absent) Uric Acid Crystals Present H (Absent) Urine Bacteria Absent (Absent) Urine Glucose Negative (Negative) Result Diagrams: 10/27/16 16:05 10/27/16 16:05 Lab Statement: Any lab studies that have been ordered have been reviewed, and results considered in the medical decision making process. - Radiology ABD XR Xray Interpretation: Positive (See Comments) - IMPRESSION: Multiple phleboliths are seen in the pelvis. Radiology Interpretation Completed By: Radiologist - CT ABD/PEL CT CT Interpretation: Positive (See Comments) - IMPRESSION: 5 mm calculi within the left ureterovesicular Junction with left hydronephrosis and hydroureter. Multiple additional calculi is noted in the lower pole of the left kidney. CT Interpretation Completed By: Radiologist Re-Evaluation - Re-Evaluation 1 Re-Evaluation Time: 17:50 Change: Unchanged Comment: Pt states still being in pain, will order pain meds. 2 Re-Evaluation Time: 18:39 Change: Improved Comment: Discussing dispo with pt and girlfriend. Will f/u with Dr. Bae, rx Flomax and Percocet, told to strain all urine. Back Pain Course/Dx - Course Course Of Treatment: Pt is a 55 y/o M presenting with L flank pain radiating to L groin onset 0300 early this AM. Pert PMHx: kidney stones. Associated sx: multiple episodes hematuria. Denies taking blood thinners. Other PMHx: HTN on meds, DVT. Pt given fluids, Dilaudid, Zofran in ED. UA results are neg WBC, but show RBCs and blood. CRP is WNL. ABD XR shows multiple phleboliths are seen in the pelvis. ABD/PEL CT shows "5 mm calculi within the left ureterovesicular Junction with left hydronephrosis and hydroureter. Multiple additional calculi is noted in the lower pole of the left kidney.". Discussed with Dr. Bae by phone. D/C home with Flomax and Percocet, f/u with Dr. Bae on 10/31/16 if needed, Dr. Bae thinks the stone has a 90% chance that it may pass on its own. - Diagnoses Differential Diagnosis/HQI/PQRI: Positive: Neoplasm, Renal Colic, Strain, Sprain Provider Diagnoses: Renal calculus, Chronic kidney disease - Provider Notifications Discussed Care Of Patient With: Erich Bae - urology Time Discussed With Above Provider: 19:06 Instructed by Provider To: Have Pt Call For Appt. - will see pt in office on , stone may pass on its own. Discharge - Discharge Plan Condition: Stable Disposition: HOME Prescriptions: Tamsulosin CAP* [Flomax CAP*] 0.4 mg PO DAILY #30 cap oxyCODONE/Acetamin 5/325 MG* [Percocet 5/325 TAB*] 1 tab PO Q4H PRN #18 tab MDD 6 PRN Reason: Pain Patient Education Materials: Oxycodone/Acetaminophen (By mouth), Tamsulosin ( By mouth), Kidney Stones (ED) Referrals: Erich Bae MD [Medical Doctor] - 3 Days (Follow up with Dr. Bae. Call for an appointment to be seen Monday10/31/16 if the stone does not pass.) Fay Tilley MD [Primary Care Provider] - Additional Instructions: Strain all urine. Take the tamsulosin and percocet as directed. Follow up with Dr. Bae, urology. Call his office and arrange to be seen on Monday October 31, 2016 if the stone does not pass. Please return to the ED if you experience new or worsening symptoms. The documentation as recorded by the Emanuel chavez SooYoung accurately reflects the service I personally performed and the decisions made by Satya sin Barbara J, MD.
== END 2016-10-27 19:25 | disposition home or self-care (01) ==
LOC: ED 14:14
DX: N28.9 Disorder of kidney and ureter, unspecified (principal); R10.84 Generalized abdominal pain; R31.9 Hematuria, unspecified; N20.0 Calculus of kidney
CPT/HCPCS: 36415; 74000; 74176; 80053; 81003; 81015; 85025; 86140; 96374; 96375; 99283; J1170; J2405

== ENCOUNTER 2017-08-28 10:39 | Inpatient (IN) | payer OTHER ==
[2017-08-28] MEDS ORDERED: Ondansetron ODT TAB* 4 MG PO ONE (11:33)
[2017-08-28 11:59] LABS: ABS Basophils 0.1 10^3/ul (0-0.2); ABS Eosinophils 0.1 10^3/ul (0-0.6); ABS Monocytes 0.4 10^3/ul (0-0.8); ABS Neutrophils 4.4 10^3/ul (1.5-7.7); ABS Nucleated RBC 0 10^3/ul; Eosinophil % 1.8 % (0-6); Hematocrit 31 % (42-52); Hemoglobin 10.6 g/dl (14.0-18.0); Lymphocyte % 16.7 % (25-47); Mean Corpuscular HGB Conc 34 g/dl (31-36); Mean Corpuscular Hemoglobin 35 pg (27-31); Mean Corpuscular Volume 101 fL (80-94); Nucleated Red Blood Cells % 0; Platelet Count 228 10^3/ul (150-450); Red Blood Count 3.08 10^6/ul (4.0-5.4); Red Cell Distribution Width 16 % (10.5-15); White Blood Count 6.1 10^3/ul (3.5-10.8)
[2017-08-28 12:07] LABS: INR 0.95 (0.77-1.02)
--- NOTE | 2017-08-28 12:14 | RAD ---
Indication: Abdominal pain. Single frontal view of the chest performed at 1155 hours was reviewed. Comparison is made with previous exam dated July 28, 2016. No mediastinal shift is noted. Heart is of normal size and configuration. Lung chris appear clear. IMPRESSION: NO ACTIVE CARDIOPULMONARY DISEASE IS NOTED.
[2017-08-28] MEDS: NS 0.9% 1000 ML* 2,000 ML IV ONE ×2 (12:16→13:54)
--- NOTE | 2017-08-28 12:21 | RAD ---
INDICATION: Abdominal pain and vomiting. COMPARISON: Comparison is made with a prior study from October 27, 2016. TECHNIQUE: A CT scan of the abdomen and pelvis was performed without intravenous or oral contrast. Contiguous axial sections were obtained from the lung bases through the symphysis pubis. Images were reconstructed in the coronal and sagittal planes. FINDINGS: The lung bases are clear. No pleural effusion is present. The liver and spleen are normal in size without significant focal abnormality on this noncontrast study. The liver is decreased in attenuation consistent with fatty infiltration. No calcified gallstones are seen. The pancreas appears to be within normal limits. The adrenal glands and kidneys are normal in size. There are bilateral renal calculi present in the lower poles of both kidneys measuring up to 1.2 cm in size. No hydronephrosis is seen. No bladder wall thickening is noted. The prostate gland appears slightly enlarged measuring 4.3 cm in transverse dimension. The aorta is normal in caliber with moderate calcific plaque present. No significant enlarged retroperitoneal lymph nodes are seen. The stomach, small and large bowel appear nondistended. The appendix is within normal limits. There are few scattered diverticuli which are most prominent in the ascending and transverse colon. There is no evidence for diverticulitis or colitis. No free intraperitoneal air or fluid is seen. There is moderate osteoarthritic change in the right hip. No significant focal osseous abnormality is seen. IMPRESSION: 1. NO EVIDENCE FOR ACUTE FINDING OR CAUSE FOR THE PATIENT'S ABDOMINAL PAIN IS SEEN. 2. NONOBSTRUCTING BILATERAL RENAL CALCULI. 3. HEPATIC STEATOSIS.
[2017-08-28] MEDS ORDERED: Morphine VIAL* 4 MG/ML VIAL (1 ml vial) IV ONE ×2 (13:48→13:52)
[2017-08-28] MEDS ORDERED: Heparin VIAL(*) 5000 UNITS/ML VIAL (FIVE THOUSAND) SUBCUT SCH (14:00)
--- NOTE | 2017-08-28 14:48 | RAD ---
Indication: Abdominal pain and vomiting x9 days Comparison: Same day chest x-ray Technique: Following the administration of 10.7 mCi of Xenon gas, ventilation images were obtained in multiple projections. Following the administration of 6.2 mCi of Tc-99m macroaggregated albumin, perfusion images were obtained in multiple projections. Report: The ventilation pattern is uniform with no evidence of air trapping. There is a segmental defect corresponding to the location of the posterior segment of the right upper lobe depicted best on the right posterior oblique and right lateral images. IMPRESSION: Perfusion defect overlying the posterior segment of the right upper lobe. According to the PIOPED II criteria this corresponds to intermediate probability for pulmonary embolism.
[2017-08-28] MEDS ORDERED: Morphine INJ* 2 MG/ML 1 ML CARPUJECT IV PRN (14:55)
[2017-08-28] MEDS ORDERED: Ondansetron 40 MG VIAL* 2 MG/ML 20 ML VIAL IV PRN (14:56)
[2017-08-28] MEDS ORDERED: Heparin DRIP 25,000 UNITS(*) 25,000 UNITS/500 ML BAG ONE (15:15)
[2017-08-28] MEDS ORDERED: Heparin VIAL(*) 5000 UNITS/ML VIAL (FIVE THOUSAND) ONE (15:27)
[2017-08-28] MEDS: Heparin DRIP 25,000 UNITS(*) 25,000 UNITS/500 ML BAG IV SCH (15:30)
--- NOTE | 2017-08-28 15:46 | RAD ---
INDICATION: Toenail bed discoloration x1 month COMPARISON: None. TECHNIQUE: Ankle-brachial indices and Doppler tracings were obtained of the lower extremities bilaterally. Volume pulse recordings were acquired at the bilateral ankles. REPORT: Ankle-brachial indices: Right: Value (SBP) Index Brachial: 135 Posterior tibialis: 169 1.25 Dorsalis pedis: 167 1.24 Digit: 105 0.78 Left: Value (SBP) Index Brachial: 132 Posterior tibialis: 152 1.13 Dorsalis pedis: 150 1.11 Digit: 77 0.57 Doppler waveforms (acquired at rest): In the interrogated lower extremity arteries, Doppler waveforms are triphasic at the ankle arteries and biphasic at the bilateral digits. Volume pulse recordings (acquired at rest): Volume pulse recordings, measured at the bilateral ankles, are symmetric. IMPRESSION: DARLENE values acquired at the left great toe is consistent with claudication. Please correlate to history of thromboembolic disease and/or medium and small vessel vasculitis.
[2017-08-28 15:56] LABS: Urine Appearance Clear; Urine Blood 1+ (Negative); Urine Color Straw; Urine Ketones Negative (Negative); Urine Protein Negative (Negative); Urine Specific Gravity 1.009 (1.010-1.030); Urine Urobilinogen Negative (Negative)
[2017-08-28] MEDS ORDERED: NS 0.9% 1000 ML* 1,000 ML IV ONE (17:05)
--- NOTE | 2017-08-28 17:35 | RAD ---
HISTORY: Lower extremity pain and swelling TECHNIQUE: Multiple transverse and longitudinal ultrasound images were obtained of the veins of the bilateral lower extremities using grayscale, color Doppler, and spectral Doppler imaging with and without compression and with augmentation. FINDINGS: VEINS: The common femoral vein, deep femoral vein, femoral vein and right popliteal vein are compressible throughout their course, with normal flow on color Doppler imaging and normal response to augmentation on spectral Doppler imaging. There is occlusive thrombus in the left popliteal vein. More inferiorly there is occlusive thrombus in one of the paired posterior tibial veins and both of the duplicated peroneal veins. The peroneal vein occlusions are stable when compared to the January 15, 2016 DVT exam. SOFT TISSUES: Grossly normal. No large popliteal fossa cyst was identified. IMPRESSION: Occlusive thrombus in the left popliteal vein to since the January 15, 2016 venous duplex examination. 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
[2017-08-28] MEDS ORDERED: LORazepam TAB(*) 1 MG PO SCH (18:00)
[2017-08-28] MEDS: LORazepam TAB(*) 1 MG PO SCH (18:32)
[2017-08-28] MEDS: oxyCODONE TAB* 5 MG TAB PO PRN ×2 (18:32→22:37)
[2017-08-28] MEDS: NS 0.9% 1000 ML* 1,000 ML IV SCH (18:45)
--- NOTE | 2017-08-28 20:47 | HP ---
CC: Dr. Fay Tilley * HISTORY AND PHYSICAL: DATE OF ADMISSION: 08/28/17 PRIMARY CARE PROVIDER: Dr. Fay Tilley. ATTENDING PHYSICIAN: Dr. Erica Martinez * (dictated by Tabitha Delgado NP). CHIEF COMPLAINT: Nausea, vomiting, diarrhea, and abdominal pain. HISTORY OF PRESENT ILLNESS: Mr. North is a 56-year-old male with past medical history significant for hypertension, anxiety, eczema, and nonobstructive coronary artery disease, who presented to the emergency room with complaints of nausea, vomiting, diarrhea, and abdominal pain for 9 days. The patient states that approximately 2 months ago, he had similar symptoms with nausea, vomiting, diarrhea, some abdominal pain with keeping hydrated at home, he was able to have this resolved. Approximately 9 days ago, he developed nausea and vomiting. He has been unable to keep much water down. Any fluids he takes it only down for couple of hours before he then vomits them back up. He denies any fevers, chills, or chest pain. He reports feeling dizzy for the last few days. He also reports dry heaves when he has nothing to vomit. He denies any flank pain. He initially denied any shortness of breath, but then reported shortness of breath with exertion for approximately 1 month. He had some kidney stones back in February 2017. Due to the patient's symptoms, he presented to the emergency room for further evaluation. While in the emergency room, the patient received 2 L of normal saline. He had labs drawn showing an anion gap metabolic acidosis and acute renal failure. The patient denies routinely taking any Tylenol, aspirin, or ibuprofen. He states that a couple of days ago, he took some ibuprofen to see if this would relieve his abdominal pain. The patient denies any urinary symptoms such as dysuria, changes with urgency or frequency. Due to the patient's renal failure , the hospitalists were asked to evaluate the patient for admission. PAST MEDICAL HISTORY: 1. Hypertension. 2. Anxiety. 3. Eczema. 4. Nonobstructing coronary artery disease. 5. Renal calculi. 6. History DVT. PAST SURGICAL HISTORY: 1. Status post left ring finger ORIF. 2. Status post left knee arthroscopic surgery. HOME MEDICATIONS: Include: 1. Lisinopril 10 mg oral daily. 2. Carvedilol 12.5 mg oral twice daily. 3. Omeprazole 40 mg oral daily. ALLERGIES: BANANAS, KEFLEX, EGGS, IODINE. FAMILY HISTORY: The patient's mother passed at age 74 from the myocardial infarction. He denies any family history of diabetes mellitus. The patient's mother had a history of breast cancer and father with a history of prostate cancer. The patient's sister passed at age 27 from renal failure. He is unclear of the details. SOCIAL HISTORY: The patient denies tobacco, recreational drug use. He rarely drinks alcohol. He works in [employer]. His significant other, Yu Zafar will be his surrogate decision maker in the event he is unable to make decisions for himself. REVIEW OF SYSTEMS: I performed an 11-point review of systems. All the pertinent positives and negatives are mentioned in the history of present illness. The remaining review of systems is negative. PHYSICAL EXAMINATION GENERAL APPEARANCE: The patient is alert, pleasant, and appears to be in no acute distress. VITAL SIGNS: Temperature 97.1, heart rate 95, respiratory rate 18, O2 sat 99% on room air, blood pressure 127/81. HEENT: Normocephalic, atraumatic. Pupils are equal and reactive to light. Extraocular movements are intact. The patient is noted to have JVD with exhalation. RESPIRATORY: There is no accessory muscle use. The lungs are clear to auscultation bilaterally. CARDIOVASCULAR: Regular rate and rhythm. S1, S2 present. There are no murmurs , rubs, or gallops heard. ABDOMEN: Soft, nontender, nondistended. Bowel sounds present x4. EXTREMITIES: There is no lower extremity edema. DP and PT pulses are 2+ and symmetric. MUSCULOSKELETAL: There is no clubbing or cyanosis noted. The patient exhibits good strength in all extremities. NEUROLOGIC: The patient is alert and oriented x4. Cranial nerves II through XII are grossly intact. PSYCHOLOGICAL: The patient is calm and cooperative. SKIN: The patient has ecchymosis to bilateral first toes. In addition, he has horizontal lines across on all 10 of his finger nails. DIAGNOSTIC STUDIES/LABORATORY DATA: Sodium 135, potassium 4.5, chloride 106, CO2 14, BUN 13, creatinine 3.71, glucose 95. Lactic acid 2.5, lipase 152, total bili 1.10. White blood cell count 6.1, hemoglobin 10.6, hematocrit 31, platelet count 228. EKG shows a sinus rhythm with a rate of 79. There are no acute signs of ischemia. This EKG is similar to previous from 07/28/16. Chest x-ray from today. Radiologist's impression: No active cardiopulmonary disease is noted. Abdomen and pelvis CT from today. Radiologist's impression: No evidence for acute findings or cause for the patient's abdominal pain, nonobstructing bilateral renal calculi, hepatic steatosis. IMPRESSION: Mr. North is a 56-year-old male with a past medical history significant for hypertension, anxiety, eczema, nonobstructive coronary artery disease and renal calculi, who presented to the emergency room with complaints of abdominal pain, nausea, vomiting, diarrhea and will be admitted as an inpatient for acute renal failure. ASSESSMENT/PLAN: 1. Acute renal failure. At this time, there is unclear cause. I suspect it could be dehydration that has led to ATN with the patient having a 9-day history of nausea, vomiting, diarrhea, and being able to keep limited liquids down. We will give him IV hydration. Recheck his labs in the morning. Dr. Dooley has seen the patient in the emergency room. We will additionally check urine eosinophils, urinalysis, alcohol level, FENa, sed rate, serum and urine osmolality, CRP, and a V/Q scan. We will get an echo as the patient has JVD with exhalation. He will need close monitoring of his electrolytes and will receive replacement as needed. 2. Anion gap metabolic acidosis. Unclear cause at this time could to be secondary to his acute renal failure. He is going to get IV fluids and we will recheck his labs in the morning. 3. Bilateral first toe ecchymosis. We will check bilateral lower extremity arterial studies to rule out any emboli. 4. Mild lactic acidosis. We will recheck the patient's lactic acid after IV hydration. This may be secondary to dehydration, there are no signs of infection at this time. 5. Hypertension. Continue the patient's home carvedilol. We will hold his lisinopril in the setting of acute renal failure. 6. Coronary artery disease. Continue the patient's carvedilol. He is not currently on a statin or aspirin. 7. Gastroesophageal reflux disease. Continued on his home omeprazole. 8. Fluids, electrolytes, and nutrition. Clear liquids until his nausea and vomiting are resolved or improved. 9. Code status. Full code. 10. DVT prophylaxis. The patient is moderate risk and will have subcu heparin. 11. Disposition. Inpatient. TIME SPENT: Time for this admission was approximately 60 minutes, greater than half of that was spent with the patient and significant other discussing medications, past medical history, the events leading up to this arrival today and performing a physical examination. The case has been reviewed with the attending, Dr. Martinez, who agrees with the plan of care. Reviewed by MARYANNE MARAVILLA 08/30/17 0914 [id number] #: [id number] SPENSER
[2017-08-28] MEDS: Carvedilol TAB* 6.25 MG PO SCH (21:32)
--- NOTE | 2017-08-28 22:46 | ED ---
Oscar Chase Nilda, scribed for Freddy Munoz MD on 08/28/17 at 1133 . Abdominal Pain/Male - HPI Summary HPI Summary: This patient is a 56 year old M presenting to [facility] accompanied by family with a chief complaint of constant severe epigastric pain with N/V/D for the past 9 days. Pt states diarrhea is dark brown, loose stools, and slimy-looking. This morning pt reports he drank water, which caused him to dry heave for 2 hours. The patient rates the pain 7/10 in severity. Symptoms aggravated by PO intake and alleviated by nothing. Patient reports dry throat, loss of appetite, and ecchymosis on bilat big toe nails. Patient denies testicular pain, burning with urination, and trauma. Pt states previous similar episode a few months ago. PMHx includes UT, reduced renal function, blood clot, and renal calculi. 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 Patient denies testicular pain , burning with urination, and trauma. - Allergies/Home Medications Allergies/Adverse Reactions: Allergies Allergy/AdvReac Type Severity Reaction Status Date / Time banana Allergy Nausea And Verified 08/28/17 10:49 Vomiting cephalexin [From Keflex] Allergy Rash Verified 08/28/17 10:49 egg Allergy Vomiting Verified 08/28/17 10:49 iodine Allergy Rash Verified 08/28/17 10:49 PMH/Surg Hx/FS Hx/Imm Hx Endocrine/Hematology History: Denies: Hx Diabetes Cardiovascular History: Reports: Hx Hypercholesterolemia, Hx Hypertension Denies: Hx Congestive Heart Failure, Hx Pacemaker/ICD, Other Cardiovascular Problems/Disorders Respiratory History: Reports: Other Respiratory Problems/Disorders - PE 2016 Denies: Hx Asthma History: Reports: Hx Chronic Renal Failure - creat elevated , Other Problems/Disorders - reduced renal function Denies: Hx Renal Disease Psychiatric History: Denies: Hx Eating Disorder - Surgical History Surgery Procedure, Year, and Place: LT.KNEE/MENISCUS 2010, LT 4TH FINGER CRUSH INJ.W/SX 2006. June 2015 Cardiac Catherization Infectious Disease History: No Infectious Disease History: Denies: History Other Infectious Disease, Traveled Outside the [place] in Last 30 Days - Family History Known Family History: Positive: Cardiac Disease, Hypertension, Diabetes, Renal Disease - Sister at 27 y.o with kidney failure - Social History Lives: Alone Alcohol Use: Weekly Hx Substance Use: No Substance Use Type: Reports: None Hx Tobacco Use: No Smoking Status (MU): Never Smoked Tobacco Review of Systems Positive: Other - dry throat Positive: Abdominal Pain, Vomiting, Diarrhea, Nausea, Other - loss of appetite Positive: other - negative testicular pain. Negative: burning, dysuria Positive: Other - ecchymosis bilat big toe nails; negative truama. All Other Systems Reviewed And Are Negative: Yes Physical Exam - Summary Physical Exam Summary: General: well-appearing, mild pain distress Skin: warm, color reflects adequate perfusion, dry Head: normal Eyes: EOMI, QI ENT: normal except slight dry oral mucosa Neck: supple, nontender Respiratory: CTA, breath sounds present Cardiovascular: RRR Abdomen: soft, mild diffuse tenderness, mild tympani Bowel sounds: hypoactive Musculoskeletal: normal, strength/ROM intact Neurological: normal, sensory/motor intact, A&O x3 Psychological: affect/mood appropriate Triage Information Reviewed: Yes Vital Signs On Initial Exam: Initial Vitals Temp Pulse Resp BP Pulse Ox 97.1 F 79 16 144/125 99 08/28/17 10:45 08/28/17 10:45 08/28/17 10:45 08/28/17 10:45 08/28/17 10:45 Vital Signs Reviewed: Yes Diagnostics - Vital Signs Vital Signs Temp Pulse Resp BP Pulse Ox 08/28/17 11:19 79 13 112/77 99 08/28/17 11:17 73 99 08/28/17 10:45 97.1 F 79 16 144/125 99 - Laboratory Lab Results: Lab Results 08/28/17 08/28/17 08/28/17 Range/Units 11:50 11:50 11:50 WBC 6.1 (3.5-10.8) 10^3/ul RBC 3.08 L (4.0-5.4) 10^6/ul Hgb 10.6 L (14.0-18.0) g/dl Hct 31 L (42-52) % MCV 101 H (80-94) fL MCH 35 H (27-31) pg MCHC 34 (31-36) g/dl RDW 16 H (10.5-15) % Plt Count 228 (150-450) 10^3/ul MPV 7.0 L (7.4-10.4) um3 Neut % (Auto) 73.1 (38-83) % Lymph % (Auto) 16.7 L (25-47) % Smyth % (Auto) 6.4 (0-7) % Eos % (Auto) 1.8 (0-6) % Baso % (Auto) 2.0 (0-2) % Absolute Neuts (auto) 4.4 (1.5-7.7) 10^3/ul Absolute Lymphs (auto) 1.0 (1.0-4.8) 10^3/ul Absolute Monos (auto) 0.4 (0-0.8) 10^3/ul Absolute Eos (auto) 0.1 (0-0.6) 10^3/ul Absolute Basos (auto) 0.1 (0-0.2) 10^3/ul Absolute Nucleated RBC 0 10^3/ul Nucleated RBC % 0 ESR 23 H (0-20) mm/Hr Eosinophil Smear INR (Anticoag Therapy) 0.95 (0.77-1.02) APTT 20.8 L (26.0-36.3) seconds VBG pH (7.33-7.43) VBG pCO2 (41-51) mmHg VBG pO2 (35-45) mmHg VBG HCO3 (24-28) mmol/L VBG O2 Saturation (70-80) % VBG Base Excess (0-4) Sodium 135 L (139-145) mmol/L Potassium 4.5 (3.5-5.0) mmol/L Chloride 106 (101-111) mmol/L Carbon Dioxide 14 L* (22-32) mmol/L Anion Gap 15 H (2-11) mmol/L BUN 73 H (6-24) mg/dL Creatinine 3.71 H (0.67-1.17) mg/dL Est GFR ( Amer) 21.8 (>60) Est GFR (Non-Af Amer) 17.0 (>60) BUN/Creatinine Ratio 19.7 (8-20) Glucose 95 (70-100) mg/dL Serum Osmolality (275-295) mOsm/kg Lactic Acid (0.5-2.0) mmol/L Calcium 8.8 (8.6-10.3) mg/dL Phosphorus 3.9 (2.5-5.0) mg/dL Magnesium 1.9 (1.9-2.7) mg/dL Total Bilirubin 1.10 H (0.2-1.0) mg/dL AST 17 (13-39) U/L ALT 11 (7-52) U/L Alkaline Phosphatase 73 (34-104) U/L Troponin I 0.00 (<0.04) ng/mL C-Reactive Protein 3.14 (< 5.00) mg/L Total Protein 6.9 (6.4-8.9) g/dL Albumin 4.2 (3.2-5.2) g/dL Globulin 2.7 (2-4) g/dL Albumin/Globulin Ratio 1.6 (1-3) Lipase 152 H (11.0-82.0) U/L TSH 0.35 (0.34-5.60) mcIU/mL Urine Color Urine Appearance Urine pH (5-9) Ur Specific Vona (1.010-1.030) Urine Protein (Negative) Urine Ketones (Negative) Urine Blood (Negative) Urine Nitrate (Negative) Urine Bilirubin (Negative) Urine Urobilinogen (Negative) Ur Leukocyte Esterase (Negative) Urine WBC (Auto) (Absent) Urine RBC (Auto) (Absent) Urine Bacteria (Absent) Hyaline Casts (Absent) Urine Osmolality (150-1150) mOsm/kg Ur Random Creatinine mg/dL Ur Random Sodium mmol/L Urine Glucose (Negative) Salicylates < 2.50 (<30) mg/dL Acetaminophen < 15 mcg/mL Serum Alcohol 195 H (<10) mg/dL 08/28/17 08/28/17 08/28/17 Range/Units 11:50 11:50 15:40 WBC (3.5-10.8) 10^3/ul RBC (4.0-5.4) 10^6/ul Hgb (14.0-18.0) g/dl Hct (42-52) % MCV (80-94) fL MCH (27-31) pg MCHC (31-36) g/dl RDW (10.5-15) % Plt Count (150-450) 10^3/ul MPV (7.4-10.4) um3 Neut % (Auto) (38-83) % Lymph % (Auto) (25-47) % Smyth % (Auto) (0-7) % Eos % (Auto) (0-6) % Baso % (Auto) (0-2) % Absolute Neuts (auto) (1.5-7.7) 10^3/ul Absolute Lymphs (auto) (1.0-4.8) 10^3/ul Absolute Monos (auto) (0-0.8) 10^3/ul Absolute Eos (auto) (0-0.6) 10^3/ul Absolute Basos (auto) (0-0.2) 10^3/ul Absolute Nucleated RBC 10^3/ul Nucleated RBC % ESR (0-20) mm/Hr Eosinophil Smear INR (Anticoag Therapy) (0.77-1.02) APTT (26.0-36.3) seconds VBG pH 7.25 L (7.33-7.43) VBG pCO2 28 L (41-51) mmHg VBG pO2 47 H (35-45) mmHg VBG HCO3 14.0 L (24-28) mmol/L VBG O2 Saturation 84.6 H (70-80) % VBG Base Excess -13.6 L (0-4) Sodium (139-145) mmol/L Potassium (3.5-5.0) mmol/L Chloride (101-111) mmol/L Carbon Dioxide (22-32) mmol/L Anion Gap (2-11) mmol/L BUN (6-24) mg/dL Creatinine (0.67-1.17) mg/dL Est GFR ( Amer) (>60) Est GFR (Non-Af Amer) (>60) BUN/Creatinine Ratio (8-20) Glucose (70-100) mg/dL Serum Osmolality 377 H* (275-295) mOsm/kg Lactic Acid 2.5 H* (0.5-2.0) mmol/L Calcium (8.6-10.3) mg/dL Phosphorus (2.5-5.0) mg/dL Magnesium (1.9-2.7) mg/dL Total Bilirubin (0.2-1.0) mg/dL AST (13-39) U/L ALT (7-52) U/L Alkaline Phosphatase (34-104) U/L Troponin I (<0.04) ng/mL C-Reactive Protein (< 5.00) mg/L Total Protein (6.4-8.9) g/dL Albumin (3.2-5.2) g/dL Globulin (2-4) g/dL Albumin/Globulin Ratio (1-3) Lipase (11.0-82.0) U/L TSH (0.34-5.60) mcIU/mL Urine Color Urine Appearance Urine pH (5-9) Ur Specific Vona (1.010-1.030) Urine Protein (Negative) Urine Ketones (Negative) Urine Blood (Negative) Urine Nitrate (Negative) Urine Bilirubin (Negative) Urine Urobilinogen (Negative) Ur Leukocyte Esterase (Negative) Urine WBC (Auto) (Absent) Urine RBC (Auto) (Absent) Urine Bacteria (Absent) Hyaline Casts (Absent) Urine Osmolality (150-1150) mOsm/kg Ur Random Creatinine mg/dL Ur Random Sodium mmol/L Urine Glucose (Negative) Salicylates (<30) mg/dL Acetaminophen mcg/mL Serum Alcohol (<10) mg/dL 08/28/17 08/28/17 08/28/17 Range/Units 15:40 15:42 15:42 WBC (3.5-10.8) 10^3/ul RBC (4.0-5.4) 10^6/ul Hgb (14.0-18.0) g/dl Hct (42-52) % MCV (80-94) fL MCH (27-31) pg MCHC (31-36) g/dl RDW (10.5-15) % Plt Count (150-450) 10^3/ul MPV (7.4-10.4) um3 Neut % (Auto) (38-83) % Lymph % (Auto) (25-47) % Smyth % (Auto) (0-7) % Eos % (Auto) (0-6) % Baso % (Auto) (0-2) % Absolute Neuts (auto) (1.5-7.7) 10^3/ul Absolute Lymphs (auto) (1.0-4.8) 10^3/ul Absolute Monos (auto) (0-0.8) 10^3/ul Absolute Eos (auto) (0-0.6) 10^3/ul Absolute Basos (auto) (0-0.2) 10^3/ul Absolute Nucleated RBC 10^3/ul Nucleated RBC % ESR (0-20) mm/Hr Eosinophil Smear INR (Anticoag Therapy) (0.77-1.02) APTT (26.0-36.3) seconds VBG pH (7.33-7.43) VBG pCO2 (41-51) mmHg VBG pO2 (35-45) mmHg VBG HCO3 (24-28) mmol/L VBG O2 Saturation (70-80) % VBG Base Excess (0-4) Sodium (139-145) mmol/L Potassium (3.5-5.0) mmol/L Chloride (101-111) mmol/L Carbon Dioxide (22-32) mmol/L Anion Gap (2-11) mmol/L BUN (6-24) mg/dL Creatinine (0.67-1.17) mg/dL Est GFR ( Amer) (>60) Est GFR (Non-Af Amer) (>60) BUN/Creatinine Ratio (8-20) Glucose (70-100) mg/dL Serum Osmolality (275-295) mOsm/kg Lactic Acid 3.1 H* (0.5-2.0) mmol/L Calcium (8.6-10.3) mg/dL Phosphorus (2.5-5.0) mg/dL Magnesium (1.9-2.7) mg/dL Total Bilirubin (0.2-1.0) mg/dL AST (13-39) U/L ALT (7-52) U/L Alkaline Phosphatase (34-104) U/L Troponin I (<0.04) ng/mL C-Reactive Protein (< 5.00) mg/L Total Protein (6.4-8.9) g/dL Albumin (3.2-5.2) g/dL Globulin (2-4) g/dL Albumin/Globulin Ratio (1-3) Lipase (11.0-82.0) U/L TSH (0.34-5.60) mcIU/mL Urine Color Straw Urine Appearance Clear Urine pH 5.0 (5-9) Ur Specific Vona 1.009 L (1.010-1.030) Urine Protein Negative (Negative) Urine Ketones Negative (Negative) Urine Blood 1+ A (Negative) Urine Nitrate Negative (Negative) Urine Bilirubin Negative (Negative) Urine Urobilinogen Negative (Negative) Ur Leukocyte Esterase Negative (Negative) Urine WBC (Auto) Absent (Absent) Urine RBC (Auto) Trace(0-2/hpf) (Absent) Urine Bacteria Absent (Absent) Hyaline Casts Present A (Absent) Urine Osmolality 406 (150-1150) mOsm/kg Ur Random Creatinine mg/dL Ur Random Sodium mmol/L Urine Glucose Negative (Negative) Salicylates (<30) mg/dL Acetaminophen mcg/mL Serum Alcohol (<10) mg/dL 08/28/17 08/28/17 Range/Units 15:42 15:42 WBC (3.5-10.8) 10^3/ul RBC (4.0-5.4) 10^6/ul Hgb (14.0-18.0) g/dl Hct (42-52) % MCV (80-94) fL MCH (27-31) pg MCHC (31-36) g/dl RDW (10.5-15) % Plt Count (150-450) 10^3/ul MPV (7.4-10.4) um3 Neut % (Auto) (38-83) % Lymph % (Auto) (25-47) % Smyth % (Auto) (0-7) % Eos % (Auto) (0-6) % Baso % (Auto) (0-2) % Absolute Neuts (auto) (1.5-7.7) 10^3/ul Absolute Lymphs (auto) (1.0-4.8) 10^3/ul Absolute Monos (auto) (0-0.8) 10^3/ul Absolute Eos (auto) (0-0.6) 10^3/ul Absolute Basos (auto) (0-0.2) 10^3/ul Absolute Nucleated RBC 10^3/ul Nucleated RBC % ESR (0-20) mm/Hr Eosinophil Smear None seen INR (Anticoag Therapy) (0.77-1.02) APTT (26.0-36.3) seconds VBG pH (7.33-7.43) VBG pCO2 (41-51) mmHg VBG pO2 (35-45) mmHg VBG HCO3 (24-28) mmol/L VBG O2 Saturation (70-80) % VBG Base Excess (0-4) Sodium (139-145) mmol/L Potassium (3.5-5.0) mmol/L Chloride (101-111) mmol/L Carbon Dioxide (22-32) mmol/L Anion Gap (2-11) mmol/L BUN (6-24) mg/dL Creatinine (0.67-1.17) mg/dL Est GFR ( Amer) (>60) Est GFR (Non-Af Amer) (>60) BUN/Creatinine Ratio (8-20) Glucose (70-100) mg/dL Serum Osmolality (275-295) mOsm/kg Lactic Acid (0.5-2.0) mmol/L Calcium (8.6-10.3) mg/dL Phosphorus (2.5-5.0) mg/dL Magnesium (1.9-2.7) mg/dL Total Bilirubin (0.2-1.0) mg/dL AST (13-39) U/L ALT (7-52) U/L Alkaline Phosphatase (34-104) U/L Troponin I (<0.04) ng/mL C-Reactive Protein (< 5.00) mg/L Total Protein (6.4-8.9) g/dL Albumin (3.2-5.2) g/dL Globulin (2-4) g/dL Albumin/Globulin Ratio (1-3) Lipase (11.0-82.0) U/L TSH (0.34-5.60) mcIU/mL Urine Color Urine Appearance Urine pH (5-9) Ur Specific Vona (1.010-1.030) Urine Protein (Negative) Urine Ketones (Negative) Urine Blood (Negative) Urine Nitrate (Negative) Urine Bilirubin (Negative) Urine Urobilinogen (Negative) Ur Leukocyte Esterase (Negative) Urine WBC (Auto) (Absent) Urine RBC (Auto) (Absent) Urine Bacteria (Absent) Hyaline Casts (Absent) Urine Osmolality (150-1150) mOsm/kg Ur Random Creatinine 71.62 mg/dL Ur Random Sodium 67 mmol/L Urine Glucose (Negative) Salicylates (<30) mg/dL Acetaminophen mcg/mL Serum Alcohol (<10) mg/dL Result Diagrams: 08/28/17 11:50 08/28/17 11:50 Lab Statement: Any lab studies that have been ordered have been reviewed, and results considered in the medical decision making process. - Radiology CXR Radiology Interpretation Completed By: Radiologist - CXR reveals NO ACTIVE CARDIOPULMONARY DISEASE IS NOTED. Dr. Munoz has reviewed this radiology report. - CT Abd/Pel CT Interpretation Completed By: Radiologist - CT A/P reveals 1. NO EVIDENCE FOR ACUTE FINDING OR CAUSE FOR THE PATIENT'S ABDOMINAL PAIN IS SEEN. 2. NONOBSTRUCTING BILATERAL RENAL CALCULI. 3. HEPATIC STEATOSIS. Dr. Munoz has reviewed this radiology report. - EKG 1149 Cardiac Rate: NL - 79 bpm EKG Rhythm: Sinus Rhythm ST Segment: Normal Ectopy: None Abdominal Pain Fem Course/Dx - Course Assessment/Plan: BP noted and advised to follow up with PCP. Medications reviewed. ADMIT HOSPITALIST - Diagnoses Provider Diagnoses: HTN (hypertension), Acute renal failure, Abdominal pain - Provider Notifications Discussed Care Of Patient With: Erica Martinez - Hospitalist Time Discussed With Above Provider: 12:39 Instructed by Provider To: Admit As Inpatient Discharge - Sign-Out/Discharge Documenting (check all that apply): Discharge/Admit/Transfer - Discharge Plan Condition: Guarded Disposition: ADMITTED TO [facility] - Billing Disposition and Condition Condition: GUARDED Disposition: [facility] [place] The documentation as recorded by the Oscar chavez Nilda accurately reflects the service I personally performed and the decisions made by , Freddy Munoz MD.
[2017-08-29] MEDS: NS 0.9% 1000 ML* 1,000 ML IV SCH ×4 (01:46→19:39)
[2017-08-29] MEDS: oxyCODONE TAB* 5 MG TAB PO PRN ×5 (02:42→20:40)
[2017-08-29 05:01] LABS: EGFR Non-African American 38.3 (>60)
[2017-08-29 05:41] LABS: ABS Basophils 0 10^3/ul (0-0.2); ABS Eosinophils 0.2 10^3/ul (0-0.6); ABS Lymphocytes 1.5 10^3/ul (1.0-4.8); ABS Monocytes 0.6 10^3/ul (0-0.8); ABS Neutrophils 3.7 10^3/ul (1.5-7.7); ABS Nucleated RBC 0 10^3/ul; Eosinophil % 4.1 % (0-6); Hematocrit 28 % (42-52); Hemoglobin 9.5 g/dl (14.0-18.0); Lymphocyte % 24.6 % (25-47); Mean Corpuscular HGB Conc 34 g/dl (31-36); Mean Corpuscular Hemoglobin 35 pg (27-31); Mean Corpuscular Volume 102 fL (80-94); Nucleated Red Blood Cells % 0; Platelet Count 185 10^3/ul (150-450); Red Blood Count 2.75 10^6/ul (4.0-5.4); Red Cell Distribution Width 16 % (10.5-15); White Blood Count 6.1 10^3/ul (3.5-10.8)
[2017-08-29] MEDS ORDERED: Magnesium Sulfate IV* 3 GM in NS 0.9% 100 ML* 100 ML IVPB ONE (07:33)
[2017-08-29] MEDS ORDERED: Magnesium Sulfate 2 GM IV IVPB ONE (08:00)
[2017-08-29] MEDS: Thiamine TAB* 100 MG TAB PO SCH (08:34)
[2017-08-29] MEDS: Folic Acid TAB* 1 MG PO SCH (08:34)
[2017-08-29] MEDS: Omeprazole CAP* 20 MG PO SCH (08:34)
[2017-08-29] MEDS: Multivitamins/Minerals TAB PO SCH (08:34)
[2017-08-29] MEDS: Carvedilol TAB* 6.25 MG PO SCH ×2 (08:34→20:40)
[2017-08-29] MEDS ORDERED: Perflutren Lipid Microsphere* 3 ML VIAL ONE (08:36)
[2017-08-29] MEDS ORDERED: Magnesium Sulfate 1 GM IV* 1 GM/100 ML BAG IV ONE (09:00)
[2017-08-29] MEDS: Sodium Bicarbonate (ANTACID)* 650 MG TAB PO SCH ×2 (11:52→17:36)
[2017-08-29] MEDS: Heparin DRIP 25,000 UNITS(*) 25,000 UNITS/500 ML BAG IV SCH (14:07)
--- NOTE | 2017-08-29 14:15 | PN ---
Subjective Date of Service: 08/29/17 Interval History: HOSPITALIST PROGRESS NOTE Patient seen and examined at bedside. He feels better today. Still has some abdominal pain, but improved, and has not vomited so far today. Tolerating diet. Family History: Unchanged from Admission Social History: Unchanged from Admission Past Medical History: Unchanged from Admission Objective Active Medications: Carvedilol (Coreg Tab*) 12.5 mg PO BID [facility] Last Admin: 08/29/17 08:34 Dose: 12.5 mg Folic Acid (Folvite Tab*) 1 mg PO DAILY [facility] Last Admin: 08/29/17 08:34 Dose: 1 mg Sodium Chloride (Ns 0.9% 1000 Ml*) 1,000 mls @ 150 mls/hr IV PER RATE [facility] Last Admin: 08/29/17 08:34 Dose: 150 mls/hr Heparin Sodium/Dextrose (Heparin Drip 25,000 Units(*)) 25,000 units in 500 mls @ 0 mls/hr IV PER RATE [facility]; Per Protocol PRN Reason: Protocol Last Admin: 08/29/17 14:07 Dose: 19 mls/hr Lorazepam (Ativan Tab(*)) 0 - 6 mg PO .PER [facility] PROTOCOL [facility] PRN Reason: Protocol Last Admin: 08/28/17 18:32 Dose: 2 mg Morphine Sulfate (Morphine Vial*) 2 mg IV Q2H PRN PRN Reason: PAIN Multivitamins/Minerals (Theragran/Minerals Tab*) 1 tab PO DAILY [facility] Last Admin: 08/29/17 08:34 Dose: 1 tab Omeprazole (Prilosec Cap*) 40 mg PO DAILY [facility] Last Admin: 08/29/17 08:34 Dose: 40 mg Ondansetron HCl (Zofran Inj*) 4 mg IV Q6H PRN PRN Reason: NAUSEA Oxycodone HCl (Roxycodone Tab*) 5 mg PO Q4H PRN PRN Reason: PAIN - MILD TO MODERATE Last Admin: 08/29/17 11:51 Dose: 5 mg Sodium Bicarbonate (Sodium Bicarbonate (Antacid)*) 1,300 mg PO AC [facility] Last Admin: 08/29/17 11:52 Dose: 1,300 mg Thiamine HCl (Vitamin B-1 Tab*) 100 mg PO DAILY [facility] Last Admin: 08/29/17 08:34 Dose: 100 mg Vital Signs - 8 hr 08/29/17 08/29/17 08/29/17 07:07 08:00 08:06 Temperature 99.1 F Pulse Rate 89 Respiratory 18 17 17 Rate Blood Pressure 149/70 (mmHg) O2 Sat by Pulse 96 Oximetry 08/29/17 08/29/17 08/29/17 09:12 10:04 10:11 Temperature 98.1 F 97.6 F Pulse Rate 78 79 Respiratory 18 17 17 Rate Blood Pressure 138/84 137/73 (mmHg) O2 Sat by Pulse 99 99 Oximetry 08/29/17 08/29/17 11:51 11:59 Temperature 98.1 F Pulse Rate 78 Respiratory 18 17 Rate Blood Pressure 162/85 (mmHg) O2 Sat by Pulse 99 Oximetry Oxygen Devices in Use Now: None Appearance: Pleasant middle aged gentleman sitting up in bed in NAD. Eyes: No Scleral Icterus Ears/Nose/Mouth/Throat: Mucous Membranes Moist Neck: Trachea Midline Respiratory: Symmetrical Chest Expansion and Respiratory Effort, Clear to Auscultation Cardiovascular: RRR - Normal S1 and S2 Abdominal: - - soft, mild epigastric tenderness, BS+ Neurological: Alert and Oriented x 3, NL Muscle Strength and Tone Result Diagrams: 08/29/17 05:24 08/29/17 05:24 Assess/Plan/Problems-Billing Assessment: Mr North is a 56yo M with PMH of HTN, anxiety, CAD, DVT, who presented to ED with c/o abdominal pain, N/V. - Patient Problems (1) Abdominal pain Status: Acute Comment: - Suspect secondary to a combination of recurrent vomiting and probable alcoholic gastritis. - Lipase was mildly elevate at [address] was negative for pancreatitis. - Continue symptomatic treatment and advance diet. (2) Alcohol use disorder Comment: - Patient states he drinks 3 beers/week and had one at 2AM the day he came to ER - alcohol level was 195 almost 10h later. His REINALDO suggests he ingested at least 8 drinks, but patient denies it. Had REINALDO>300 in 2017. - Face is flushed, he has mild tachycardia (even with beta blockers on board) and tremor - will continue WAM protocol. (3) ELROY (acute kidney injury) Comment: - Likely pre-renal in the setting of recurrent vomiting. - Continue IVF. - Creatinine trending down. (4) Pulmonary embolism Comment: - V/Q scan showed intermediate possibility of PE - continue anticoagulation with heparin. - CTA chest contraindicated in the setting of ELROY. (5) Deep vein thrombosis (DVT) of right lower extremity Comment: - LE doppler was negative in 01/07 and now shows recurrent DVT. - Prothrombin gene mutation and Factor V Leiden were negative in 2016. - Continue heparin with plan to start Eliquis as renal function improves. (6) HTN (hypertension) Comment: - Continue caverdilol. (7) DVT prophylaxis Comment: - Heparin drip. (8) Full code status Status and Disposition: Inpatient.
--- NOTE | 2017-08-29 16:51 | ECHO ---
Patient: BENEDICTO HARRIS [facility] Rec#: [id number] : 1960 Date: 08/29/2017 Age: 56y Height: 175.3 cm / 69.0 in Weight: 77.1 kg / 169.9 lbs Sex: M BSA: 1.9 Room#: [facility] Admit Date#: 08/28/2017 Type: Inpatient Referring: Tabitha Quinn NP Reading: Manjeet Montes De Oca MD Multimedia Instructional Designer: Amelia Taylor RN RDCS CC: Fay Tilley MD Transthoracic Echocardiogram Indication: Pulmonary embolism BP: 151/87 HR: 90 Rhythm: NSR with PVCs Findings History: Non-obstructing CAD, HTN, HLD, DVT, PE. Technical Comments: The study quality is fair. The study is technically limited due to poor acoustic windows. The study is technically limited due to patient body habitus. Left Ventricle: The left ventricular chamber size is normal. There is no left ventricular hypertrophy. Global left ventricular wall motion and contractility are within normal limits. There is normal left ventricular systolic function. The estimated ejection fraction is 55-60%. Normal left ventricular diastolic filling is observed. Left Atrium: The left atrial chamber size is normal. Right Ventricle: The right ventricular cavity size is normal. The right ventricular global systolic function is normal. Right Atrium: The right atrial cavity size is normal. Aortic Valve: The aortic valve is trileaflet. The aortic valve leaflets are mildly thickened. There is no evidence of aortic regurgitation. There is no evidence of aortic stenosis. Mitral Valve: The mitral valve leaflets are mildly thickened. There is a trace of mitral regurgitation. There is no evidence of mitral stenosis. Tricuspid Valve: The tricuspid valve leaflets are normal. There is trace tricuspid regurgitation. Unable to estimate the right ventricular systolic pressure. There is no tricuspid stenosis. Pulmonic Valve: The pulmonic valve appears normal. There is no evidence of pulmonic regurgitation. There is no pulmonic stenosis. Pericardium: There is no significant pericardial effusion. A pericardial fat pad is visualized. Aorta: There is no dilatation of the ascending aorta. There is no dilatation of the aortic arch. There is no dilation of the aortic root. Pulmonary Artery: The main pulmonary artery is not well visualized. Venous: The inferior vena cava appears normal in size. There is a greater than 50% respiratory change in the inferior vena cava dimension. Contrast: Definity was used to optimize study. A total of 3 ml of diluted Definity was given IV to enhance endocardial border definition. Conclusions Global left ventricular wall motion and contractility are within normal limits. There is normal left ventricular systolic function. The estimated ejection fraction is 55-60%. There is no evidence of aortic stenosis. There is a trace of mitral regurgitation. There is trace tricuspid regurgitation. Unable to estimate the right ventricular systolic pressure. There is no significant pericardial effusion. Measurements Name Value Normal Range RVDdMajor (2D) 3.5 cm (2.2 - 4.4) RAd ISD 4CH 4.6 cm (3.4 - 4.9) RA (A4C)W 3.5 cm (2.9 - 4.6) IVSd (2D) 0.9 cm (0.6 - 1) LVPWd (2D) 1 cm (0.6 - 1) LVIDd (2D) 5 cm (3.6 - 5.4) LVIDs (2D) 3.6 cm - LV FS (2D) 28 % (25 - 45) Aortic Annulus 2.1 cm (1.4 - 2.6) Ao root diameter (2D) 3.4 cm (2.1 - 3.5) Ascending Ao 3.1 cm (2.1 - 3.4) Aortic arch 2.5 cm (1.8 - 3.4) LA dimension (AP) 2D 3.8 cm (2.3 - 3.8) LAd ISD 4CH 5 cm (2.9 - 5.3) LA ISD 4CH W 3.3 cm (2.5 - 4.5) Name Value Normal Range LA ESV SP 4CH (A/L) 51 ml - LA ESV SP 2CH (A/L) 49 ml - LA ESV BP (A/L) 51 ml - LA ESV BP (A/L) index 26.5 ml/m2 - LA ESV SP 4CH (MOD) 45 ml - LA ESV SP 2CH (MOD) 49 ml - Name Value Normal Range MV E-wave Vmax 1.2 m/sec - MV deceleration time 222 msec - MV A-wave Vmax 1 m/sec - MV E:A ratio 1.1 ratio - LV septal e' Vmax 0.1 m/sec - LV lateral e' Vmax 0.14 m/sec - LV E:e' septal ratio 12 ratio - LV E:e' lateral ratio 8.6 ratio - Name Value Normal Range AV Vmax 1.5 m/sec - AV VTI 34.6 cm - AV peak gradient 8.9 mmHg - AV mean gradient 5.4 mmHg - LVOT Vmax 1.2 m/sec - LVOT VTI 26.1 cm - LVOT peak gradient 5.7 mmHg - LVOT mean gradient 3.1 mmHg - RIGOBERTO Vmax 0.71 m/sec - Name Value Normal Range IVC diameter 2 cm - Name Value Normal Range PV Vmax 0.77 m/sec -
--- NOTE | 2017-08-29 19:45 | CONS ---
CC: Dr. Tilley * NEPHROLOGY CONSULTATION: DATE OF CONSULT: HISTORY OF PRESENT ILLNESS: I had actually seen Mr. North yesterday in the emergency room, but got called away to an urgency in the dialysis unit. Mr. North is a 56-year-old gentleman with a history of hypertension and nonobstructing coronary artery disease, who presented with complaints of nausea , vomiting, diarrhea and upper abdominal pain for the last 9 days. He had a similar episode a couple of months ago. He has been unable to even hold water down. He has not had fever, chills, dysuria, frequency, urgency, or chest pain. Because of his continued symptoms, he presented to the emergency room where he was found to have an acute deterioration of his renal function associated with metabolic acidosis. PAST MEDICAL HISTORY: His previous medical history is significant that he has hypertension, eczema, history of kidney stones, nonobstructing coronary artery disease, and history of anxiety. He has had left knee arthroscopic surgery and surgery to his left ring finger. MEDICATIONS: Included: 1. Lisinopril 10 mg daily. 2. Carvedilol 12.5 mg twice a day. 3. Omeprazole 40 mg daily. ALLERGIES: He is allergic to BANANAS, KEFLEX, EGGS, and IODINE. FAMILY HISTORY: Significant in his mother had breast cancer and his father had prostate cancer. His sister with complications of renal failure at age 27 , but the exact diagnosis is not known. SOCIAL HISTORY: He is . He denies tobacco use or recreation drugs. REVIEW OF SYSTEMS: He has no visual disturbances. No hearing problems. No heat or cold intolerance. No arthropathies. No swelling. He has been complaining of some dyspnea on exertion for approximately the last month. PHYSICAL EXAM: He is a well-developed, well-nourished white gentleman, in no distress. His blood pressure is 152/82 with a pulse of 105, respirations are 18. HEENT: He is normocephalic. His extraocular muscles are intact. He is anicteric. His mucous membranes are a bit dry. There is no jugular venous distention. His chest is clear. The heart revealed a regular rhythm without murmurs. The abdomen is soft and nontender. Bowel sounds are positive. Bones , joints, extremities revealed no cyanosis, clubbing, or edema. Neurologic: He is alert and oriented. He moves all 4 extremities well. DIAGNOSTIC STUDIES/LAB DATA: A review of his laboratory studies on admission, his white count was 6.1, hemoglobin of 10.6, hematocrit of 31, platelets 228, 000. Sodium of 135, potassium 4.5, chloride 106, total CO2 14 with an anion gap 15, BUN 73, creatinine 3.71. Urinalysis was not available. IMPRESSION: 1. Acute renal failure. 2. Increased anion gap metabolic acidosis. DISCUSSION: Ordinarily an increased anion gap acidosis can be seen with renal failure, but he has been having nausea and vomiting and one would think that he would have a contraction alkalosis and not an acidosis. Obviously that means the other usual causes of acidosis should be investigated including a look at a urine for possibility of ketones. His alcohol level should be obtained. A tox screen should be performed. Acetaminophen level should be obtained. We should get urine and serum osmolalities in order to calculate an osmolar gap. I would buffer his acidosis. I would check a fractional excretion of sodium. Because of his dyspnea on exertion, it would not be a bad idea to go ahead and get a V/ Q lung scan. He has had a history of deep venous thrombosis in the past. I am a little reluctant from to have a CT scan with contrast to look for a pulmonary embolus. I have discussed the case with Dr. Martinez. [id number]/[facility] #: [id number] SPENSER
[2017-08-29] MEDS: LORazepam TAB(*) 1 MG PO SCH (21:37)
[2017-08-30] MEDS: NS 0.9% 1000 ML* 1,000 ML IV SCH ×2 (02:25→09:39)
[2017-08-30] MEDS: oxyCODONE TAB* 5 MG TAB PO PRN ×5 (02:29→22:35)
[2017-08-30] MEDS: Morphine VIAL* 4 MG/ML VIAL (1 ml vial) IV PRN ×2 (06:00→20:11)
[2017-08-30 06:28] LABS: ABS Basophils 0 10^3/ul (0-0.2); ABS Eosinophils 0.3 10^3/ul (0-0.6); ABS Lymphocytes 1.6 10^3/ul (1.0-4.8); ABS Monocytes 0.4 10^3/ul (0-0.8); ABS Neutrophils 2.2 10^3/ul (1.5-7.7); ABS Nucleated RBC 0 10^3/ul; Eosinophil % 7.6 % (0-6); Hematocrit 26 % (42-52); Hemoglobin 8.9 g/dl (14.0-18.0); Lymphocyte % 34.4 % (25-47); Mean Corpuscular HGB Conc 34 g/dl (31-36); Mean Corpuscular Hemoglobin 35 pg (27-31); Mean Corpuscular Volume 103 fL (80-94); Mean Platelet Volume 7.1 um3 (7.4-10.4); Nucleated Red Blood Cells % 0.1; Platelet Count 156 10^3/ul (150-450); Red Blood Count 2.52 10^6/ul (4.0-5.4); Red Cell Distribution Width 17 % (10.5-15); White Blood Count 4.6 10^3/ul (3.5-10.8)
[2017-08-30 06:45] LABS: EGFR Non-African American 73.6 (>60)
[2017-08-30] MEDS: Carvedilol TAB* 6.25 MG PO SCH ×2 (08:19→20:13)
[2017-08-30] MEDS: Omeprazole CAP* 20 MG PO SCH (08:20)
[2017-08-30] MEDS: Multivitamins/Minerals TAB PO SCH (08:20)
[2017-08-30] MEDS: Thiamine TAB* 100 MG TAB PO SCH (08:21)
[2017-08-30] MEDS: Folic Acid TAB* 1 MG PO SCH (08:21)
[2017-08-30] MEDS: Sodium Bicarbonate (ANTACID)* 650 MG TAB PO SCH ×3 (08:21→16:21)
[2017-08-30] MEDS ORDERED: Magnesium Sulfate IV* 3 GM in NS 0.9% 100 ML* 100 ML IVPB ONE (11:24)
[2017-08-30] MEDS: Magnesium Oxide TAB* 400 MG PO SCH ×2 (11:50→20:13)
[2017-08-30] MEDS: Apixaban* 5 MG TAB PO SCH ×2 (12:46→20:13)
--- NOTE | 2017-08-30 15:01 | PN ---
PROGRESS NOTE: DATE: 08/29/17 Mr. North is feeling somewhat better today. His abdominal discomfort is improved, if not resolved. He is having less in the way of nausea. No chest pain. He really has not exerted himself, so he does not know how to evaluate his dyspnea. His blood pressure has been up a little bit, now 144/75 but it has been higher than that earlier in the day, pulse is 80 and respirations are 19. There is no jugular venous distention. Chest is clear. The heart revealed regular rhythm without murmurs. There is no edema. His hemoglobin is 9.5. Sodium has normalized to 140, potassium 3.9, total CO2 15, chloride 114, creatinine is now down to 1.83, BUN of 43. His alcohol level came back at 195. This complex of symptoms is explainable by alcohol poisoning with the exception of the dyspnea on exertion. He has been found to have stable clots in his legs. There may be the indication to proceed now to anticoagulate him again. I would continue to buffer his acidosis orally if possible. His magnesium has fallen to 1.3 suggesting that he has a significant total body deficit of magnesium and he should have that aggressively repaired. I would think he probably would require some parenteral magnesium. [id number]/[facility] #: [id number] MTDD
--- NOTE | 2017-08-30 16:41 | PN ---
Subjective Date of Service: 08/30/17 Interval History: HOSPITALIST PROGRESS NOTE Patient seen and examined at bedside. Care reviewed and d/w Hannah Castillo RN. He feels better today. Abdominal pain is less intense, no further episodes of vomiting, wants to advance his diet. Walking around the unit, feels steady, tremors are improved. Family History: Unchanged from Admission Social History: Unchanged from Admission Past Medical History: Unchanged from Admission Objective Active Medications: Apixaban (Eliquis*) 5 mg PO BID [facility] Last Admin: 08/30/17 12:46 Dose: 5 mg Carvedilol (Coreg Tab*) 12.5 mg PO BID [facility] Last Admin: 08/30/17 08:19 Dose: 12.5 mg Folic Acid (Folvite Tab*) 1 mg PO DAILY [facility] Last Admin: 08/30/17 08:21 Dose: 1 mg Lorazepam (Ativan Tab(*)) 0 - 6 mg PO .PER [facility] PROTOCOL [facility] PRN Reason: Protocol Last Admin: 08/29/17 21:37 Dose: 2 mg Magnesium Oxide (Magox 400 Tab*) 800 mg PO BID [facility] Last Admin: 08/30/17 11:50 Dose: 800 mg Morphine Sulfate (Morphine Vial*) 2 mg IV Q2H PRN PRN Reason: PAIN Last Admin: 08/30/17 06:00 Dose: 2 mg Multivitamins/Minerals (Theragran/Minerals Tab*) 1 tab PO DAILY [facility] Last Admin: 08/30/17 08:20 Dose: 1 tab Omeprazole (Prilosec Cap*) 40 mg PO DAILY [facility] Last Admin: 08/30/17 08:20 Dose: 40 mg Ondansetron HCl (Zofran Inj*) 4 mg IV Q6H PRN PRN Reason: NAUSEA Oxycodone HCl (Roxycodone Tab*) 5 mg PO Q4H PRN PRN Reason: PAIN - MILD TO MODERATE Last Admin: 08/30/17 12:46 Dose: 5 mg Sodium Bicarbonate (Sodium Bicarbonate (Antacid)*) 1,300 mg PO AC [facility] Last Admin: 08/30/17 16:21 Dose: 1,300 mg Thiamine HCl (Vitamin B-1 Tab*) 100 mg PO DAILY [facility] Last Admin: 08/30/17 08:21 Dose: 100 mg Vital Signs - 8 hr 08/30/17 08/30/17 08/30/17 09:55 11:50 12:04 Temperature 97.7 F 97.5 F Pulse Rate 84 86 Respiratory 14 18 18 Rate Blood Pressure 130/71 136/83 (mmHg) O2 Sat by Pulse 100 100 Oximetry 08/30/17 08/30/17 08/30/17 12:36 12:46 13:53 Temperature 97.8 F 98.0 F Pulse Rate 79 92 Respiratory 18 16 19 Rate Blood Pressure 133/73 126/68 (mmHg) O2 Sat by Pulse 99 97 Oximetry 08/30/17 08/30/17 14:51 16:14 Temperature 97.5 F Pulse Rate 84 Respiratory 16 20 Rate Blood Pressure 147/87 (mmHg) O2 Sat by Pulse 100 Oximetry Oxygen Devices in Use Now: None Appearance: Pleasant gentleman sitting up in bed in NAD. Eyes: No Scleral Icterus Ears/Nose/Mouth/Throat: Mucous Membranes Moist Neck: Trachea Midline Respiratory: Symmetrical Chest Expansion and Respiratory Effort, Clear to Auscultation Cardiovascular: RRR - Normal S1 and S2 Abdominal: NL Sounds; No Tenderness; No Distention Neurological: Alert and Oriented x 3, NL Muscle Strength and Tone Result Diagrams: 08/30/17 05:50 08/30/17 05:50 Assess/Plan/Problems-Billing Assessment: Mr North is a 56yo M with PMH of HTN, anxiety, CAD, DVT, who presented to ED with c/o abdominal pain, N/V. - Patient Problems (1) Hypomagnesemia Comment: - Magnesium 1.4 today - continue to replete. (2) Abdominal pain Status: Acute Comment: - Suspect secondary to a combination of recurrent vomiting and probable alcoholic gastritis. - Lipase was mildly elevate at [address] was negative for pancreatitis. - Continue symptomatic treatment and advance diet as tolerated. (3) Alcohol use disorder Comment: - Patient states he drinks 3 beers/week and had one at 2AM the day he came to ER - alcohol level was 195 almost 10h later. His REINALDO suggests he ingested at least 8 drinks, but patient denies it. Had REINALDO>300 in 2017. - Face is flushed, he has mild tachycardia (even with beta blockers on board) and tremor - will continue [facility] protocol. (4) ELROY (acute kidney injury) Comment: - Likely pre-renal in the setting of recurrent vomiting. - Resolved. - D/c IVF. (5) Pulmonary embolism Comment: - V/Q scan showed intermediate possibility of PE - renal function back to normal - after reviewing risks and benefits, will start Eliquis. - CTA chest contraindicated in the setting of ELROY. (6) Deep vein thrombosis (DVT) of right lower extremity Comment: - LE doppler was negative in 01/07 and now shows recurrent DVT. - Prothrombin gene mutation and Factor V Leiden were negative in 2016. - Start Eliquis. (7) HTN (hypertension) Comment: - Continue caverdilol. (8) DVT prophylaxis Comment: - Eliquis. (9) Full code status Status and Disposition: Inpatient.
[2017-08-31] MEDS: oxyCODONE TAB* 5 MG TAB PO PRN ×4 (06:21→22:01)
[2017-08-31 06:28] LABS: ABS Basophils 0 10^3/ul (0-0.2); ABS Eosinophils 0.3 10^3/ul (0-0.6); ABS Lymphocytes 1.1 10^3/ul (1.0-4.8); ABS Monocytes 0.5 10^3/ul (0-0.8); ABS Neutrophils 2.5 10^3/ul (1.5-7.7); ABS Nucleated RBC 0 10^3/ul; Eosinophil % 7.2 % (0-6); Hematocrit 25 % (42-52); Hemoglobin 8.7 g/dl (14.0-18.0); Lymphocyte % 24.4 % (25-47); Mean Corpuscular HGB Conc 35 g/dl (31-36); Mean Corpuscular Hemoglobin 35 pg (27-31); Mean Corpuscular Volume 101 fL (80-94); Mean Platelet Volume 6.8 um3 (7.4-10.4); Nucleated Red Blood Cells % 0.1; Platelet Count 136 10^3/ul (150-450); Red Blood Count 2.49 10^6/ul (4.0-5.4); Red Cell Distribution Width 16 % (10.5-15); White Blood Count 4.4 10^3/ul (3.5-10.8)
[2017-08-31 06:51] LABS: EGFR Non-African American 78.8 (>60)
[2017-08-31] MEDS: Sodium Bicarbonate (ANTACID)* 650 MG TAB PO SCH (07:15)
[2017-08-31] MEDS: Carvedilol TAB* 6.25 MG PO SCH ×2 (07:16→20:58)
[2017-08-31] MEDS: Omeprazole CAP* 20 MG PO SCH (07:16)
[2017-08-31] MEDS: Folic Acid TAB* 1 MG PO SCH (07:16)
[2017-08-31] MEDS: Multivitamins/Minerals TAB PO SCH (07:16)
[2017-08-31] MEDS: Apixaban* 5 MG TAB PO SCH ×2 (07:16→20:58)
[2017-08-31] MEDS: Magnesium Oxide TAB* 400 MG PO SCH ×2 (07:16→20:58)
[2017-08-31] MEDS: Thiamine TAB* 100 MG TAB PO SCH (07:16)
[2017-08-31] MEDS ORDERED: Magnesium Sulfate IV* 3 GM in NS 0.9% 100 ML* 100 ML IVPB ONE (08:01)
[2017-08-31] MEDS ORDERED: Magnesium Sulfate 2 GM IV IVPB ONE (09:00)
[2017-08-31] MEDS: Morphine VIAL* 4 MG/ML VIAL (1 ml vial) IV PRN (09:40)
[2017-08-31] MEDS: Pantoprazole IV* 40 MG IV SCH (09:40)
[2017-08-31] MEDS ORDERED: Magnesium Sulfate 1 GM IV* 1 GM/100 ML BAG IV ONE (10:00)
--- NOTE | 2017-08-31 14:42 | PN ---
Subjective Date of Service: 08/31/17 Interval History: HOSPITALIST PROGRESS NOTE Patient seen and examined at bedside. He feels better today, abdominal pain is less intense. Family History: Unchanged from Admission Social History: Unchanged from Admission Past Medical History: Unchanged from Admission Objective Active Medications: Apixaban (Eliquis*) 5 mg PO BID [facility] Last Admin: 08/31/17 07:16 Dose: 5 mg Carvedilol (Coreg Tab*) 12.5 mg PO BID [facility] Last Admin: 08/31/17 07:16 Dose: 12.5 mg Folic Acid (Folvite Tab*) 1 mg PO DAILY [facility] Last Admin: 08/31/17 07:16 Dose: 1 mg Lorazepam (Ativan Tab(*)) 0 - 6 mg PO .PER [facility] PROTOCOL [facility] PRN Reason: Protocol Last Admin: 08/29/17 21:37 Dose: 2 mg Magnesium Oxide (Magox 400 Tab*) 800 mg PO BID [facility] Last Admin: 08/31/17 07:16 Dose: 800 mg Morphine Sulfate (Morphine Vial*) 2 mg IV Q2H PRN PRN Reason: PAIN Last Admin: 08/31/17 09:40 Dose: 2 mg Multivitamins/Minerals (Theragran/Minerals Tab*) 1 tab PO DAILY [facility] Last Admin: 08/31/17 07:16 Dose: 1 tab Ondansetron HCl (Zofran Inj*) 4 mg IV Q6H PRN PRN Reason: NAUSEA Oxycodone HCl (Roxycodone Tab*) 5 mg PO Q4H PRN PRN Reason: PAIN - MILD TO MODERATE Last Admin: 08/31/17 12:53 Dose: 5 mg Pantoprazole Sodium (Protonix Iv*) 40 mg IV DAILY [facility] Last Admin: 08/31/17 09:40 Dose: 40 mg Thiamine HCl (Vitamin B-1 Tab*) 100 mg PO DAILY [facility] Last Admin: 08/31/17 07:16 Dose: 100 mg Vital Signs - 8 hr 08/31/17 08/31/17 08/31/17 07:20 08:15 08:56 Temperature 98.2 F Pulse Rate 90 Respiratory 18 16 18 Rate Blood Pressure 150/87 (mmHg) O2 Sat by Pulse 97 Oximetry 08/31/17 08/31/17 08/31/17 09:40 11:18 11:26 Temperature 97.9 F Pulse Rate 80 Respiratory 16 16 18 Rate Blood Pressure 152/88 (mmHg) O2 Sat by Pulse 100 Oximetry Oxygen Devices in Use Now: None Appearance: Pleasant gentleman sitting up in bed in NAD. Eyes: No Scleral Icterus Ears/Nose/Mouth/Throat: Mucous Membranes Moist Neck: Trachea Midline Respiratory: Symmetrical Chest Expansion and Respiratory Effort, Clear to Auscultation Cardiovascular: NL Sounds; No Murmurs; No JVD, RRR Abdominal: NL Sounds; No Tenderness; No Distention Neurological: Alert and Oriented x 3, NL Muscle Strength and Tone Result Diagrams: 08/31/17 05:59 08/31/17 05:59 Assess/Plan/Problems-Billing Assessment: Mr North is a 56yo M with PMH of HTN, anxiety, CAD, DVT, who presented to ED with c/o abdominal pain, N/V. 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 - Check anemia w/u. (2) Hypomagnesemia Comment: - Resolved. (3) Abdominal pain Status: Acute Comment: - Suspect secondary to a combination of recurrent vomiting and probable alcoholic gastritis. - Lipase was mildly elevate at [address] was negative for pancreatitis. - Continue symptomatic treatment and advance diet as tolerated. (4) Alcohol use disorder Comment: - Patient states he drinks 3 beers/week and had one at 2AM the day he came to ER - alcohol level was 195 almost 10h later. His REINALDO suggests he ingested at least 8 drinks, but patient denies it. Had REINALDO>300 in 2017. - Face is flushed, he has mild tachycardia (even with beta blockers on board) and tremor - will continue [facility] protocol. (5) ELROY (acute kidney injury) Comment: - Likely pre-renal in the setting of recurrent vomiting. - Resolved. - D/c IVF. (6) Pulmonary embolism Comment: - V/Q scan showed intermediate possibility of PE - renal function back to normal - after reviewing risks and benefits, will start Eliquis. - CTA chest contraindicated in the setting of ELROY. (7) Deep vein thrombosis (DVT) of right lower extremity Comment: - LE doppler was negative in 01/07 and now shows recurrent DVT. - Prothrombin gene mutation and Factor V Leiden were negative in 2016. - Start Eliquis. (8) HTN (hypertension) Comment: - Continue caverdilol. (9) DVT prophylaxis Comment: - Eliquis. (10) Full code status Status and Disposition: Inpatient.
--- NOTE | 2017-08-31 21:03 | CONS ---
CC: Fay Tilley MD * GASTROENTEROLOGY CONSULTATION: DATE OF CONSULT: 08/31/17 REFERRING PHYSICIAN: Fay Tilley MD HISTORY OF PRESENT ILLNESS: Thank you for asking me to see Mr. North. As you know, he is a 56-year-old male who was admitted on 08/28/17 with nausea, vomiting, diarrhea and abdominal pain for 8 to 9 days prior to admission. The patient was admitted with acute renal failure due to dehydration. He does have a history of DVT and has now documented DVT again. I am asked to see the patient regarding anticoagulation. His lung scan was indeterminate for PE. He has been commenced on Eliquis as of yesterday afternoon. The patient's nausea and vomiting have resolved. His abdominal pain is much improved. He does describe some upper abdominal discomfort. The patient did undergo an abdominopelvic CAT scan on admission. No acute findings were noted. The patient has had slowly drop in hematocrit from admission, which may be due to rehydration. On admission, hematocrit was 31, currently today it is 25. He does have macrocytic indices. He has been commenced on IV pantoprazole 40 mg daily. The patient apparently drinks alcohol on a regular basis. The patient has never had a colonoscopy. PAST MEDICAL HISTORY: Significant for DVT, coronary artery disease, hypertension, renal stones, left knee arthroscopy. MEDICATIONS: In the hospital include: 1. Eliquis. 2. Coreg. 3. Ativan per [facility] protocol. 4. Morphine. 5. Zofran. 6. Oxycodone. 7. Pantoprazole. 8. Thiamine. ALLERGIES: To KEFLEX, IODINE. FAMILY HISTORY: Noncontributory. SOCIAL HISTORY: The patient lives at home with his significant other. He works at [employer]. No tobacco. Alcohol on a regular basis. REVIEW OF SYSTEMS: Ten-point review of systems is performed and is otherwise negative. PHYSICAL EXAM: Mr. North is a non-ill appearing 56-year-old male. Temperature is 97.9, heart rate of 80, blood pressure 152/88. HEENT Exam: There is no scleral icterus. Heart is regular rate and rhythm. Lungs are clear. Abdomen is soft. There is mild epigastric tenderness. Bowel sounds are present. There is no distention. Skin is warm and dry. The patient does have eczema. Neuro exam is grossly intact. Alert and oriented x3. DIAGNOSTIC STUDIES/LAB DATA: Pertinent laboratory studies include a BUN of 8, creatinine of 0.9, iron of 78, TIBC of 253, percent saturation of 31, ferritin of 1287, total bilirubin of 1.1, AST of 70, ALT of 10, alk phos of 64. IMPRESSION AND PLAN: Mr. North has recurrent deep venous thrombosis and indeterminate lung scan regarding pulmonary embolism. He has been commenced on Eliquis. Admitting physicians are asking for upper endoscopy given his anemia and nausea, vomiting and upper abdominal pain for upper endoscopy to rule out pathology. The patient has had a full breakfast this morning. He will be n.p.o. after midnight and upper endoscopy will be performed tomorrow morning. The patient is in agreement. Of note, since the patient did have a full breakfast this morning, I would not add the fact that he is on Eliquis, colonoscopy is not recommended urgently as polyps would not be able to be resected on the Eliquis and unlikely that his preparation would be adequate. This may be done on an outpatient basis. The patient is agreeable to upper endoscopy. [id number]/[facility] #: [id number] SPENSER
[2017-09-01] MEDS: oxyCODONE TAB* 5 MG TAB PO PRN ×5 (02:08→19:59)
[2017-09-01] MEDS: Apixaban* 5 MG TAB PO SCH ×2 (09:42→19:58)
[2017-09-01] MEDS: Thiamine TAB* 100 MG TAB PO SCH (09:42)
[2017-09-01] MEDS: Pantoprazole IV* 40 MG IV SCH (09:42)
[2017-09-01] MEDS: Magnesium Oxide TAB* 400 MG PO SCH ×2 (09:42→19:59)
[2017-09-01] MEDS: Folic Acid TAB* 1 MG PO SCH (09:42)
[2017-09-01] MEDS: Multivitamins/Minerals TAB PO SCH (09:42)
[2017-09-01] MEDS: Carvedilol TAB* 6.25 MG PO SCH ×2 (09:53→19:58)
--- NOTE | 2017-09-01 15:01 | PN ---
Subjective Date of Service: 09/01/17 Interval History: HOSPITALIST PROGRESS NOTE Patient seen and examined at bedside. Feels much better today, offers no complaints. Family History: Unchanged from Admission Social History: Unchanged from Admission Past Medical History: Unchanged from Admission Objective Active Medications: Apixaban (Eliquis*) 5 mg PO BID [facility] Last Admin: 09/01/17 09:42 Dose: 5 mg Carvedilol (Coreg Tab*) 12.5 mg PO BID [facility] Last Admin: 09/01/17 09:53 Dose: 12.5 mg Folic Acid (Folvite Tab*) 1 mg PO DAILY [facility] Last Admin: 09/01/17 09:42 Dose: 1 mg Lorazepam (Ativan Tab(*)) 0 - 6 mg PO .PER [facility] PROTOCOL [facility] PRN Reason: Protocol Last Admin: 08/29/17 21:37 Dose: 2 mg Magnesium Oxide (Magox 400 Tab*) 800 mg PO BID [facility] Last Admin: 09/01/17 09:42 Dose: 800 mg Morphine Sulfate (Morphine Vial*) 2 mg IV Q2H PRN PRN Reason: PAIN Last Admin: 08/31/17 09:40 Dose: 2 mg Multivitamins/Minerals (Theragran/Minerals Tab*) 1 tab PO DAILY [facility] Last Admin: 09/01/17 09:42 Dose: 1 tab Ondansetron HCl (Zofran Inj*) 4 mg IV Q6H PRN PRN Reason: NAUSEA Oxycodone HCl (Roxycodone Tab*) 5 mg PO Q4H PRN PRN Reason: PAIN - MILD TO MODERATE Last Admin: 09/01/17 12:00 Dose: 5 mg Pantoprazole Sodium (Protonix Iv*) 40 mg IV DAILY [facility] Last Admin: 09/01/17 09:42 Dose: 40 mg Thiamine HCl (Vitamin B-1 Tab*) 100 mg PO DAILY [facility] Last Admin: 09/01/17 09:42 Dose: 100 mg Vital Signs - 8 hr 09/01/17 09/01/17 09/01/17 07:30 07:42 08:00 Temperature 98.5 F Pulse Rate 81 Respiratory 18 16 18 Rate Blood Pressure 147/93 (mmHg) O2 Sat by Pulse 99 Oximetry 09/01/17 09/01/17 09/01/17 09:40 11:08 11:11 Temperature 98.4 F Pulse Rate 87 85 Respiratory 16 18 Rate Blood Pressure 105/46 125/65 (mmHg) O2 Sat by Pulse 99 Oximetry Oxygen Devices in Use Now: None Appearance: Pleasant gentleman sitting up in bed in NAD. Eyes: No Scleral Icterus Ears/Nose/Mouth/Throat: Mucous Membranes Moist Neck: Trachea Midline Respiratory: Symmetrical Chest Expansion and Respiratory Effort, Clear to Auscultation Cardiovascular: RRR - Normal S1 and S2 Neurological: Alert and Oriented x 3, NL Muscle Strength and Tone Result Diagrams: 08/31/17 05:59 08/31/17 05:59 Assess/Plan/Problems-Billing Assessment: Mr North is a 56yo M with PMH of HTN, anxiety, CAD, DVT, who presented to ED with c/o abdominal pain, N/V. 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 Plan for EGD today. - Anemia w/u reveals elevated ferritin suggestive of anemia of chronic disease. With his abdominal pain, unintentional weight loss, anemia, he will need malignancy w/u as outpatient. (2) Hypomagnesemia Comment: - Resolved. (3) Abdominal pain Status: Acute Comment: - Suspect secondary to a combination of recurrent vomiting and probable alcoholic gastritis. - Lipase was mildly elevate at [address] was negative for pancreatitis. - Continue symptomatic treatment and advance diet as tolerated. (4) Alcohol use disorder Comment: - Patient states he drinks 3 beers/week and had one at 2AM the day he came to ER - alcohol level was 195 almost 10h later. His REINALDO suggests he ingested at least 8 drinks, but patient denies it. Had REINALDO>300 in 2017. - Withdrawal appears to be resolved. - Patient educated about importance of alcohol abstinence. (5) ELROY (acute kidney injury) Comment: - Likely pre-renal in the setting of recurrent vomiting. - Resolved. (6) Pulmonary embolism Comment: - V/Q scan showed intermediate possibility of PE - renal function back to normal - after reviewing risks and benefits we decided to start Eliquis. - CTA chest contraindicated in the setting of ELROY. (7) Deep vein thrombosis (DVT) of right lower extremity Comment: - LE doppler was negative in 01/07 and now shows recurrent DVT. - Prothrombin gene mutation and Factor V Leiden were negative in 2016. - Continue Eliquis. (8) HTN (hypertension) Comment: - Continue caverdilol. (9) DVT prophylaxis Comment: - Eliquis. (10) Full code status Status and Disposition: Inpatient.
--- NOTE | 2017-09-01 18:52 | PN ---
Progress Note - Progress Note Date of Service: 09/01/17 - Gastroenterology Note: Patient seen and examined. No new overnight issues. Patient ate half a sandwich today thus EGD was cancelled. Mild complaints of abdominal pain. No nausea/ emesis. Denies rectal bleeding. Vital Signs: Temp Pulse Resp BP Pulse Ox 98.4 F 77 16 157/80 100 09/01/17 15:20 09/01/17 15:20 09/01/17 16:10 09/01/17 15:20 09/01/17 15:20 Physical Examination: GENERAL: NAD. ABDOMEN: Soft, NT/ND. LABS/DIAGNOSTICS: No new labs. A/P: 56 yo male presenting with a new DVT and possible PE (indeterminate V/Q scan) on Eliquis with abdominal pain and nausea/vomiting. N/V has resolved. No GI bleeding. 1. Abdominal pain with N/V - overall improving. ~N/V resolved and abdominal pain improving. ~Pantoprazole 40 mg daily. ~NPO after midnight. ~Plan for EGD in AM. 2. Macrocytic Anemia - stable. ~No GI bleeding. 3. DVT with possible PE ~Started on Eliquis. Further recommendations to follow. Please call us with any questions or concerns. Kandy Parish D.O.
[2017-09-02] MEDS: oxyCODONE TAB* 5 MG TAB PO PRN ×2 (00:31→12:40)
[2017-09-02] MEDS: Morphine VIAL* 4 MG/ML VIAL (1 ml vial) IV PRN ×2 (04:05→08:01)
[2017-09-02] MEDS: Pantoprazole IV* 40 MG IV SCH (08:01)
[2017-09-02] MEDS ORDERED: Midazolam* 1 MG/ML 10 ML VIAL (10 MG) ONE (09:15)
[2017-09-02] MEDS ORDERED: fentaNYL* 50 MCG/ML 2 ML VIAL (100 MCG VIAL) ONE (09:15)
--- NOTE | 2017-09-02 09:44 | PN ---
Progress Note - Progress Note Date of Service: 09/02/17 - Gastroenterology Note: Patient seen and examined in endoscopy. Feeling much better. Tolerating diet. No nausea/emesis/abdominal pain. Agreeable to EGD. Vital Signs: Temp Pulse Resp BP Pulse Ox 98.2 F 84 14 139/72 98 09/02/17 07:37 09/02/17 07:37 09/02/17 08:01 09/02/17 07:37 09/02/17 07:37 Physical Examination: GENERAL: NAD. ABDOMEN: Soft, NT/ND. Labs/Diagnostics: No new labs and imaging. A/P: 56 yo male presenting with a new DVT and possible PE (indeterminate V/Q scan) on Eliquis with abdominal pain and nausea/vomiting. N/V has resolved. No GI bleeding. 1. Abdominal pain with N/V - resolved. ~N/V and abdominal pain resolved. ~Pantoprazole 40 mg daily. ~EGD today with very mild GERD gastroduodenitis. No ulcers/tumors. 2. Macrocytic Anemia - stable. ~No GI bleeding. 3. DVT with possible PE ~Started on Eliquis. ~Avoid NSAIDS while on Eliquis. Please call us with any questions or concerns. Kandy Parish D.O.
[2017-09-02] MEDS: Folic Acid TAB* 1 MG PO SCH (10:07)
[2017-09-02] MEDS: Apixaban* 5 MG TAB PO SCH (10:07)
[2017-09-02] MEDS: Thiamine TAB* 100 MG TAB PO SCH (10:07)
[2017-09-02] MEDS: Magnesium Oxide TAB* 400 MG PO SCH (10:08)
[2017-09-02] MEDS: Multivitamins/Minerals TAB PO SCH (10:08)
[2017-09-02] MEDS: Carvedilol TAB* 6.25 MG PO SCH (10:11)
--- NOTE | 2017-09-02 12:37 | PRO ---
CC: Dr. Erica Martinez; Dr. Fay Tilley GASTROENTEROLOGY OPERATIVE REPORT: DATE OF PROCEDURE: 09/02/17. OPERATIVE PROCEDURE: Esophagogastroduodenoscopy to third portion of duodenum. TRACTOR OPERATOR HELPER: Kandy Parish MD. ANESTHESIA: 1. Midazolam 6 mg IV. 2. Fentanyl 125 mcg IV. HISTORY OF PRESENT ILLNESS: Isis is a pleasant 56-year-old male, who presented with complaints of nausea, vomiting, and abdominal pain, and was noted to have a DVT with possible PE, and was started on Eliquis therapy. Through his hospital admission, his nausea, vomiting, and abdominal pain resolved with PPI therapy. He currently feels well. Gastroenterology was consulted for endoscopy due to the patient requiring new anticoagulation and to rule out any gastrointestinal tumors and ulcers. PREOPERATIVE DIAGNOSES: 1. Nausea and vomiting. 2. Epigastric pain. 3. On anticoagulation therapy. POSTOPERATIVE DIAGNOSES: 1. Normal appearing second and third portion of the duodenum. 2. Mild duodenitis of the bulb. 3. Mild antral gastritis. 4. Irregular appearing gastroesophageal junction at 35 cm from the incisors consistent with gastroesophageal reflux disease. 5. Normal mid and proximal esophagus. 6. Biopsies were not obtained during this procedure due to the patient being on Eliquis therapy and increased risk of bleeding. RECOMMENDATIONS: 1. We will restart the patient on his cardiac diet. 2. Continue PPI therapy daily. 3. Encourage antireflux lifestyle modifications. 4. Avoid NSAID therapy while on Eliquis. 5. Results discussed with Dr. Parish Eubanks. DESCRIPTION OF PROCEDURE: Esophagogastroduodenoscopy was explained in detail to the patient. The risks, benefits, complications, alternatives, possibilities of missed lesions were explained and understood. Complications included, but were not limited to, reaction to anesthesia, aspiration, increased risk of bleeding, and perforation. All questions were answered. The patient demonstrated understanding of the conversation and informed consent was obtained. Next, the patient was brought to the endoscopy suite, placed in the left lateral recumbent position while blood pressure, cardiac, and oxygen monitors were applied. The patient was found to be a fit candidate for moderate anesthesia. After adequate IV sedation was achieved, a bite-block was placed. Next, a standard adult Olympus endoscope was inserted per os under direct visualization to the first, second, and third portion of the duodenum. Second and third portion of the duodenum were grossly normal appearing. Entry into the bulb revealed very mild erythema consistent with duodenitis. Further withdrawal of the endoscope into the gastric lumen revealed again mild erythema in the antrum. The rest of the gastric lumen was normal appearing. On retroflexion, the patient had a normal gastric cardia sling. Further withdrawal of the endoscope into the distal esophagus revealed a very mildly irregular gastroesophageal junction at 35 cm from the incisors consistent with likely mild gastroesophageal reflux disease. The rest of tubular esophagus was normal appearing. Air was then removed from the patient and endoscope was removed from the patient. The patient tolerated the procedure well. There were no immediate complications. After a period of observation, the patient was transferred back the medical floor stable condition. Thank you, Dr. Parish Eubanks, for allowing us to participate in the care of your patient. If you should have any further questions or concerns, please do not hesitate to contact us. [id number]/[facility] #: [id number] MTDD
[2017-09-02 13:26] VITALS: BP 116/59
--- NOTE | 2017-09-02 22:25 | DS ---
DISCHARGE SUMMARY: DATE OF ADMISSION: 08/28/17 DATE OF DISCHARGE: 09/02/17 PRIMARY DIAGNOSES: 1. Pulmonary embolism. 2. Gastroduodenitis. 3. Acute kidney failure. SECONDARY DIAGNOSES: Include, 1. Suspected alcohol abuse. 2. History of previous deep vein thrombosis. 3. Anxiety. 4. Hypertension. 5. Nonobstructive coronary artery disease. MEDICATIONS ON DISCHARGE: Include, 1. Eliquis 5 mg twice daily. 2. Multivitamin 1 tab daily. 3. Coreg 12.5 mg twice daily. 4. Lisinopril 10 mg daily. 5. Omeprazole 40 mg daily. Please note the addition of Eliquis to patient's discharge medications. PROCEDURES PERFORMED DURING HOSPITAL STAY: EGD performed on 09/02/17. Impression: Very mild erythema consistent with duodenitis and mild erythema in the antrum of the stomach. Rest of the gastric lumen was normal appearing. PERTINENT IMAGING STUDIES: Lung V/Q scan, impression: Perfusion defect overlying posterior segment of the right upper lobe with an intermediate probability for pulmonary embolism. Lower extremity venous Doppler study. 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 PERTINENT LABORATORY DATA: Creatinine on presentation 3.7, decreased to 0.98 on 08/31/17. Ferritin 1287, transferrin 181, percent iron saturation 31, iron 78. Serum alcohol 195 on presentation. HISTORY OF PRESENT ILLNESS AND HOSPITAL COURSE: This is 56-year-old man with past medical history as outlined in history or present illness on the day of admission, presented to the hospital with nausea, vomiting, diarrhea and abdominal pain for 9 days. He was noted to have acute kidney injury. The patient noted that in addition to his nausea, vomiting, he had had increasing shortness of breath preceding his presentation, noted that he had become short of breath walking flight of stairs, previously had unlimited exercise tolerance. Lower extremity Doppler indicated a new popliteal venous obstruction /DVT since previous exam. The patient underwent a V/Q scan given acute kidney failure present on admission. The V/Q scan indicated intermediate risk; however , in the setting of new lower extremity DVT in conjunction with new onset shortness of breath, it is thought that the patient has high pretest probability in conjunction with a intermediate test thought to represent pulmonary embolism. The patient was started on Eliquis at 5 mg twice daily in the setting of his renal failure on presentation. He will be discharged to continue 5 mg. He was not loaded 10 mg secondary to his renal failure. He underwent an EGD as noted above, notable for gastroduodenitis likely in the setting of continued alcohol use. The risks of continued alcohol use were discussed at length with patient, although he is currently denying event intermittent heavy alcohol use. On the day of discharge, the patient had no complaints. He had no shortness of breath, he had no nausea, vomiting, was tolerating a regular diet and ambulating around the unit after the procedure. He is anxious to leave. There are no complications during the course of his hospital stay, all his medications were prescribed to Ruchi as requested. DISCHARGE INSTRUCTIONS: At followup please; 1. Please encourage abstinence from alcohol. 2. Can consider periodic CBCs to monitor for any new blood loss in the setting of new anticoagulation. 3. The patient with anemia during hospital stay may be in the setting of alcohol use, but elevated ferritin as well as noted unintentional weight loss on presentation may require more thorough malignancy screening once discharged. 4. He will require a lifelong anticoagulation in the setting of 2 DVTs and potentially pulmonary embolism based on V/Q scan and new DVT with shortness of breath. Reasons to return to the hospital include, but not limited to recurrent or worsening symptoms including chest pain, worsening shortness of breath, nausea, vomiting, lightheadedness, loss of consciousness, or near loss of consciousness , bright red blood from anywhere or black tarry stools were discussed in length with the patient. He acknowledged understanding. TIME SPENT: Greater than 45 minutes were spent on discharge of this patient, greater than half was spent [id number] with the patient. [id number]/[facility] #: [id number] SPENSER
== END 2017-09-02 14:30 | DRG 460 ==
LOC: ED 10:39 → MED 13:45 → UNDOADMIN 16:28
PROVIDERS: ADMIT Internal Medicine; ATTEND Internal Medicine
PROC: 0DJ08ZZ Inspection of Upper Intestinal Tract, Via Natural or Artificial Opening Endoscopic (ICD-10-PCS; principal; 2017-08-28)
DX: N17.9 Acute kidney failure, unspecified (principal); I26.99 Other pulmonary embolism without acute cor pulmonale; E87.2 Acidosis; I82.432 Acute embolism and thrombosis of left popliteal vein; I82.532 Chronic embolism and thrombosis of left popliteal vein; K21.9 Gastro-esophageal reflux disease without esophagitis; K29.90 Gastroduodenitis, unspecified, without bleeding; E78.00 Pure hypercholesterolemia, unspecified; I12.9 Hypertensive chronic kidney disease with stage 1 through stage 4 chronic kidney disease, or unspecified chronic kidney disease; N18.9 Chronic kidney disease, unspecified; F41.9 Anxiety disorder, unspecified; I25.10 Atherosclerotic heart disease of native coronary artery without angina pectoris; R58 Hemorrhage, not elsewhere classified; F10.10 Alcohol abuse, uncomplicated; Y90.6 Blood alcohol level of 120-199 mg/100 ml; E86.0 Dehydration; D53.9 Nutritional anemia, unspecified; E83.42 Hypomagnesemia; Z82.49 Family history of ischemic heart disease and other diseases of the circulatory system; Z83.3 Family history of diabetes mellitus; I25.2 Old myocardial infarction; Z87.442 Personal history of urinary calculi; Z88.1 Allergy status to other antibiotic agents; Z80.3 Family history of malignant neoplasm of breast; Z80.42 Family history of malignant neoplasm of prostate; Z79.01 Long term (current) use of anticoagulants; Z88.8 Allergy status to other drugs, medicaments and biological substances; Z91.012 Allergy to eggs; Z91.018 Allergy to other foods; Z84.1 Family history of disorders of kidney and ureter
CPT/HCPCS: 36415; 71045; 74176; 78582; 80048; 80053; 80320; 80329; 81003; 81015; 82270; 82570; 82607; 82728; 82746; 82803; 83540; 83550; 83605; 83690; 83735; 83930; 83935; 84100; 84300; 84443; 84484; 84520; 85025; 85610; 85652; 85730; 86140; 86147; 87045; 87046; 87077; 87328; 87329; 87493; 87641; 87899; 89190; 93005; 93306; 93922; 93970; 99156; 99157; 99284; A9270-GY; A9540; A9558; C8929; G0480; J1644; J2250; J2270; J2405; J3010; J3475

== ENCOUNTER 2018-07-02 11:15 | Inpatient (IN) | payer OTHER ==
--- NOTE | 2018-07-02 11:28 | ED ---
GI/ HPI - HPI Summary HPI Summary: Patient is a 57 y/o M presenting to ED via EMS with complaints of hematuria, diffuse abdominal pain, bilateral back pain. He states that he was at work today , went to the bathroom and experienced hematuria. Patient states that he is "probably" passing blood clots. He denies dysuria, nausea, chest pain, fever, chills, rhinorrhea, sore throat. Chronic swelling in legs bilaterally is reported as well. PMHx of PE, kidney stone. FMHx of kidney disease. In room, he rates pain 8/10. He states, "Last time I had this, I was here for a week". EMS reports that they picked up the patient from his home, states that they noted his breath smelled of an odor similar to alcohol. They state that in the ambulance the patient had claimed to have consumed alcohol today. On triage, nothing is noted to aggravate/alleviate Sx. Home medications and allergies are reviewed. - History of Current Complaint Stated Complaint: REAL BAD BLOOD IN URINE PER PT Hx Obtained From: Patient, EMS Onset/Duration: Started Hours Ago, Still Present Timing: Constant, Lasting Hours Severity: Severe - 8/10 Current Severity: Severe - 8/10 Pain Intensity: 8 Location of Pain: Diffuse Pain Radiates to: Back Associated Signs and Symptoms: Positive: Back Pain, Hematuria, Abdominal Pain, Other: - no rhinorrhea, no sore throat, chronic BLE edema. Negative: Nausea, Fever, Dysuria, Chills, Chest Pain Aggravating Factor(s): Nothing Alleviating Factor(s): Nothing - Additional Pertinent History Primary Care Physician: EDUIN - Allergy/Home Medications Allergies/Adverse Reactions: Allergies Allergy/AdvReac Type Severity Reaction Status Date / Time banana Allergy Nausea And Verified 08/28/17 10:49 Vomiting cephalexin [From Keflex] Allergy Rash Verified 08/28/17 10:49 egg Allergy Vomiting Verified 08/28/17 10:49 iodine Allergy Rash Verified 08/28/17 10:49 Home Medications: Home Medications ALPRAZolam TAB* [Xanax TAB*] 0.25 mg PO TID PRN 07/02/18 [History Confirmed 03/12] Albuterol HFA INHALER* [Ventolin HFA Inhaler*] 2 puff INH Q4H PRN 07/02/18 [ History Confirmed 07/02/18] Apixaban* [Eliquis*] 2.5 mg PO BID 07/02/18 [History Confirmed 07/02/18] Gabapentin CAP(*) [Neurontin 100 mg CAP(*)] 100 mg PO BEDTIME 07/02/18 [History Confirmed 07/02/18] Omeprazole (Nf) [Prilosec (NF)] 40 mg PO DAILY 07/02/18 [History Confirmed 07/02] amLODIPine TAB* [Norvasc 5 mg TAB*] 2.5 mg PO DAILY 07/02/18 [History Confirmed 07/02/18] PMH/Surg Hx/FS Hx/Imm Hx Endocrine/Hematology History: Denies: Hx Diabetes Cardiovascular History: Reports: Hx Hypercholesterolemia, Hx Hypertension Denies: Hx Congestive Heart Failure, Hx Pacemaker/ICD, Other Cardiovascular Problems/Disorders Respiratory History: Reports: Other Respiratory Problems/Disorders - PE 2015 Denies: Hx Asthma History: Reports: Hx Chronic Renal Failure - creat elevated , Other Problems/Disorders - reduced renal function Denies: Hx Renal Disease Sensory History: Reports: Hx Contacts or Glasses Denies: Hx Hearing Aid Opthamlomology History: Reports: Hx Contacts or Glasses Psychiatric History: Denies: Hx Eating Disorder - Surgical History Surgery Procedure, Year, and Place: LT.KNEE/MENISCUS 2010, LT 4TH FINGER CRUSH INJ.W/SX 2006. June 2015 Cardiac Catherization Infectious Disease History: Denies: History Other Infectious Disease - Family History Known Family History: Positive: Cardiac Disease, Hypertension, Diabetes, Renal Disease - Sister at 27 y.o with kidney failure - Social History Alcohol Use: Weekly Alcohol Amount: states "3-6 beers every couple days" Hx Substance Use: No Substance Use Type: Reports: None Hx Tobacco Use: No Smoking Status (MU): Never Smoked Tobacco Review of Systems Negative: Fever, Chills Negative: Sore Throat, Nasal Discharge Negative: Chest Pain Positive: Abdominal Pain. Negative: Nausea Positive: hematuria. Negative: dysuria Musculoskeletal: Other - POSITIVE - BACK PAIN Positive: Edema - CHRONIC BLE EDEMA All Other Systems Reviewed And Are Negative: Yes Physical Exam - Summary Physical Exam Summary: Constitutional: Well-developed, Well-nourished, Alert. (-) Distressed Skin: Warm, Dry HENT: Normocephalic; Atraumatic Eyes: Conjunctiva normal Neck: Musculoskeletal ROM normal neck. (-) JVD, (-) Stridor, (-) Tracheal deviation Cardio: Rhythm regular, rate normal, Heart sounds normal; Intact distal pulses; The pedal pulses are 2+ and symmetric. Radial pulses are 2+ and symmetric. (-) Murmur Pulmonary/Chest wall: Effort normal. (-) Respiratory distress, (-) Wheezes, (-) Rales Abd: Soft, (+) suprapubic tenderness, (-) Distension, (-) Guarding, (-) Rebound Musculoskeletal: (+) left CVA tenderness (+) 1+ pitting edema bilaterally Lymph: (-) Cervical adenopathy Neuro: Alert, Oriented x3 Psych: Labile affect, tearful Triage Information Reviewed: Yes Vital Signs On Initial Exam: Initial Vitals Temp Pulse Resp BP Pulse Ox 97.6 F 79 16 106/77 94 07/02/18 11:17 07/02/18 11:17 07/02/18 11:17 07/02/18 11:17 07/02/18 11:17 Vital Signs Reviewed: Yes Diagnostics - Laboratory Result Diagrams: 07/02/18 11:42 07/02/18 11:42 Lab Statement: Any lab studies that have been ordered have been reviewed, and results considered in the medical decision making process. - CT ABD/PEL CT CT Interpretation Completed By: Radiologist Summary of CT Findings: IMPRESSION: There is a calculi at the left ureteropelvic junction measuring up to 1.0 cm. with resulting in moderate left hydronephrosis. Nonobstructing calculi are noted in both. kidneys. No evidence of cholelithiasis or biliary duct dilatation. This report was reviewed by Dr. Kuo. Re-Evaluation - Re-Evaluation First Eval Re-Evaluation Time: 14:41 Comment: Consult, results of labs and tests were discussed with patient. Patient is agreeable with admission. Discussed alcohol usage as well, states that he does not go into withdrawal when he stops drinking. GIGU Course/Dx - Course Course Of Treatment: Patient is a 57 y/o M presenting to ED via EMS with complaints of hematuria, diffuse abdominal pain, bilateral back pain. He states that he was at work today, went to the bathroom and experienced hematuria. Patient states that he is "probably" passing blood clots. He denies dysuria, nausea, chest pain, fever, chills, rhinorrhea, sore throat. Chronic swelling in legs bilaterally is reported as well. PMHx of PE, kidney stone. FMHx of kidney disease. In room, he rates pain 8/10. He states, "Last time I had this, I was here for a week". EMS reports that they picked up the patient from his home, states that they noted his breath smelled of an odor similar to alcohol. They state that in the ambulance the patient had claimed to have consumed alcohol today. On physical exam, left CVA tenderness, suprapubic tenderness, 1+ pitting BLE edema, labile affect, tearful. CT ABD/PEL IMPRESSION: There is a calculi at the left ureteropelvic junction measuring up to 1.0 cm. with resulting in moderate left hydronephrosis. Nonobstructing calculi are noted in both. kidneys. No evidence of cholelithiasis or biliary duct dilatation. Labs showed Hct 41, MCV 99, MCH 34, MPV 6.4, absolute neuts 1.4, glucose 109, lactic acid 2, lipase 41, CRP 6.06, WBC 4.2. Tox showed serum alcohol of 305. During ED course, patient received 4 mg IV morphine. Patient's case was discussed with Dr. Ac at 1439. He recommends admission to hospitalist for stent placement in the morning. Consult, results of labs and tests were discussed with patient. Patient is agreeable with admission. Discussed alcohol usage as well, states that he does not go into withdrawal when he stops drinking. 1452 - Patient's case was discussed with Dr. Zavala, Dr. Zavala accepts for admission. - Diagnoses Provider Diagnoses: Calculus of left kidney - Physician Notifications Discussed Care Of Patient With: Irvin Ac Time Discussed With Above Provider: 14:39 Instructed by Provider To: Other - Patient's case was discussed with Dr. Ac at 1439. He recommends admission to hospitalist for stent placement in the morning. 1452 - Patient's case was discussed with Dr. Zavala, Dr. Zavala accepts for admission. Discharge - Sign-Out/Discharge Documenting (check all that apply): Patient Departure - admit - Discharge Plan Condition: Good Disposition: ADMITTED TO [facility] - Billing Disposition and Condition Condition: GOOD Disposition: Admitted to [facility] - Attestation Statements Document Initiated by Doug: Yes Documenting Scribe: BRIAN URBANO Provider For Whom Doug is Documenting (Include Credential): ELODIA MILLER MD Scribe Attestation: I, BRIAN URBANO, scribed for ELODIA KUO MD on 07/02/18 at 2211. Scribe Documentation Reviewed: Yes Provider Attestation: The documentation as recorded by the BRIAN chavez accurately reflects the service I personally performed and the decisions made by me, ELODIA KUO MD Status of Scribe Document: Viewed
[2018-07-02] MEDS ORDERED: Morphine INJ* 2 MG/ML 1 ML SYRINGE (TWO MG - NEW SYRINGE VERSION) IV ONE (11:30)
[2018-07-02] MEDS ORDERED: Morphine INJ* 10 MG/ML 1 ML CARPUJECT IV ONE (11:32)
[2018-07-02] MEDS ORDERED: Morphine VIAL* 10 MG/ML 1 ML VIAL IV ONE ×2 (11:42→14:57)
[2018-07-02 11:50] LABS: ABS Basophils 0.1 10^3/ul (0-0.2); ABS Eosinophils 0.6 10^3/ul (0-0.6); ABS Lymphocytes 1.6 10^3/ul (1.0-4.8); ABS Monocytes 0.5 10^3/ul (0-0.8); ABS Neutrophils 1.4 10^3/ul (1.5-7.7); ABS Nucleated RBC 0 10^3/ul; Eosinophil % 14.5 %; Hematocrit 41 % (42-52); Hemoglobin 14.1 g/dl (14.0-18.0); Lymphocyte % 39.6 %; Mean Corpuscular HGB Conc 34 g/dl (31-36); Mean Corpuscular Hemoglobin 34 pg (27-31); Mean Corpuscular Volume 99 fL (80-94); Mean Platelet Volume 6.4 fL (7.4-10.4); Nucleated Red Blood Cells % 0.1; Platelet Count 307 10^3/ul (150-450); Red Blood Count 4.13 10^6/ul (4.00-5.40); Red Cell Distribution Width 14 % (10.5-15); White Blood Count 4.2 10^3/ul (3.5-10.8)
[2018-07-02 12:26] LABS: Albumin 4.1 g/dL (3.2-5.2); Albumin/Globulin Ratio 1.6 (1-3); BUN/Creatinine Ratio 12.6 (8-20); C Reactive Protein 6.06 mg/L (<8.01); Calcium 8.9 mg/dL (8.6-10.3); EGFR African American 109.1 (>60); EGFR Non-African American 90.1 (>60); Globulin 2.5 g/dL (2-4); Potassium 3.8 mmol/L (3.5-5.0); Total Bilirubin 0.5 mg/dL (0.2-1.0); Total Protein 6.6 g/dL (6.4-8.9)
[2018-07-02 12:44] LABS: Acetaminophen < 15 mcg/mL; Alcohol 305 mg/dL (<10)
[2018-07-02 13:28] LABS: Salicylate < 2.50 mg/dL (<30)
[2018-07-02 15:02] LABS: Urine Appearance Cloudy; Urine Bacteria Absent (Absent); Urine Bilirubin Negative (Negative); Urine Blood 3+ (Negative); Urine Color Yellow; Urine Glucose Negative (Negative); Urine Ketones Negative (Negative); Urine Nitrite Negative (Negative); Urine Protein 1+(30 mg/dL) (Negative); Urine Red Blood Cell 3+(>10/hpf) (Absent); Urine Specific Gravity 1.009 (1.010-1.030); Urine Squamous Epithelial Cell Present (Absent); Urine Urobilinogen Negative (Negative); Urine White Blood Cell Trace(0-5/hpf) (Absent)
[2018-07-02] MEDS ORDERED: Ondansetron INJ* 2 MG/ML VIAL IV PRN (15:04)
[2018-07-02] MEDS ORDERED: Acetaminophen TAB* 325 MG PO PRN (15:04)
[2018-07-02 15:18] LABS: Barbiturates Urine Screen None Detected (None Detect); Benzodiazepine Urine Screen Presumptive Positive (None Detect); Urine Cannabinoids Screen None Detected (None Detect)
--- NOTE | 2018-07-02 16:10 | ADMNOTE ---
Subjective Date of Service: 07/02/18 Interval History: HISTORY AND PHYSICAL PCP: Jarek CC: hematuria HPI: Patient is a 57 year man with history of renal stones developed gross hematuria evening prior to admission. This was associated with low back pain, midline, and lower abdominal pressure. This began at work, but he went home, slept the night, and only came to ER today because his partner convinced him it was necessary. Denies fever, denies nausea/vomiting. He states he had 2 large 24 oz beers today, of a strong variety, because he was not at work, and to dull the pain. Last admission to this hospital was 08/28/17, due to DVT and PE. Reports venous insufficiency since then. 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, has girlfriend, 2 step-children, non-smoker, no alcohol or drug use Past Medical History: Findings - HTN, anxiety, CAD (non-obstructive), h/o DVT and PE; Surgical Hx: LT 4th and 5th finger ORIF, LT knee arthroscopy Review of Systems - Measurements Intake and Output: Intake and Output Last 24 Hours 06/30/18 07/01/18 07/02/18 07/03/18 05:59 06:59 06:59 06:59 Weight 81.647 kg - Review of Systems Dermatology: Positive: Normal HEENT: Positive: Normal Eyes: Positive: Normal Thyroid: Positive: Normal Pulmonary: Positive: Normal Cardiology: Positive: Normal Gastroenterology: Positive: Abdominal Pain Genital - Urinary: Positive: Hematuria Endocrinology: Positive: Normal Neurology: Positive: Normal Psychiatry: Positive: Normal Objective Active Medications: Home Meds: Carvedilol TAB* [Coreg TAB*] 12.5 mg PO BID 10/05/15 Multivitamins/Minerals TAB* [Theragran/minerals TAB*] 1 tab PO DAILY tab 04/10 ALPRAZolam TAB* [Xanax TAB*] 0.25 mg PO TID PRN 07/02/18 Albuterol HFA INHALER* [Ventolin HFA Inhaler*] 2 puff INH Q4H PRN 07/02/18 Apixaban* [Eliquis*] 2.5 mg PO BID 07/02/18 Gabapentin CAP(*) [Neurontin 100 mg CAP(*)] 100 mg PO BEDTIME 07/02/18 Omeprazole (Nf) [Prilosec (NF)] 40 mg PO DAILY 07/02/18 amLODIPine TAB* [Norvasc 5 mg TAB*] 2.5 mg PO DAILY 07/02/18 Vital Signs - 8 hr 07/02/18 07/02/18 07/02/18 11:17 12:12 12:13 Temperature 36.4 C Pulse Rate 79 77 Respiratory 16 17 16 Rate Blood Pressure 106/77 112/77 (mmHg) O2 Sat by Pulse 94 94 Oximetry 07/02/18 07/02/18 07/02/18 14:21 15:10 15:18 Temperature Pulse Rate 76 82 Respiratory 16 16 16 Rate Blood Pressure 132/103 147/108 (mmHg) O2 Sat by Pulse 96 95 Oximetry Oxygen Devices in Use Now: None Appearance: alert, no distress Eyes: No Scleral Icterus Ears/Nose/Mouth/Throat: NL Teeth, Lips, Gums Neck: NL Appearance and Movements; NL JVP Respiratory: Symmetrical Chest Expansion and Respiratory Effort Cardiovascular: NL Sounds; No Murmurs; No JVD Abdominal: No Hepatosplenomegaly, - - non-tender abdomen, soft, LEFT CVAT Lymphatic: No Cervical Adenopathy Extremities: No Edema Skin: No Rash or Ulcers Neurological: Alert and Oriented x 3 Lines/Tubes/Other Access: Clean, Dry and Intact Peripheral IV Nutrition: Taking PO's Result Diagrams: 07/02/18 11:42 07/02/18 11:42 Additional Lab and Data: EtOH 305 Diagnostic Imaging: CT abdo/pelvis w/o contrast: LEFT UPJ stone, 1 cm, with hydronephrosis EKG Data: Normal sinus, normal axis, one PVC, no ischemia Assess/Plan/Problems-Billing Assessment: 57 year old with acute LT renal stone, at UPJ, causing hydronephrosis. - Patient Problems (1) Left nephrolithiasis Current Visit: Yes Status: Acute Priority: High Code(s): N20.0 - CALCULUS OF KIDNEY SNOMED Code(s): 50594926 Comment: -Will admit, hydrate, start Flomax and Procardia to potentially aid passage. -Urology consult with Dr. Ac has been arranged for tomorrow -Will likely need stent, stone retreival -Pain control, antiemetics initiated (2) Alcohol use disorder Current Visit: No Status: Acute Priority: Medium Code(s): F10.99 - ALCOHOL USE, UNSP WITH UNSPECIFIED ALCOHOL-INDUCED DISORDER SNOMED Code(s): 52718666 Comment: - Currently intoxicated, will observe - Can start WAM protocol if signs of withdrawal appear. - Patient educated about importance of alcohol abstinence. (3) HTN (hypertension) Current Visit: No Status: Acute Priority: Medium Code(s): I10 - ESSENTIAL (PRIMARY) HYPERTENSION SNOMED Code(s): 70569040 Comment: - Patient will be NPO, can try procardia tonight rather than norvasc - Will use enalaprilat IV if needed - Should continue beta mike (4) DVT prophylaxis Current Visit: No Status: Acute Priority: Medium Code(s): BMQ3319 - SNOMED Code(s): 954848044 Comment: - hold DOAC due to planned urology procedure - High risk due to h/o DVT/PE - Can have SCDs for now. Status and Disposition: inpatient
[2018-07-02] MEDS: Tamsulosin CAP* 0.4 MG PO SCH (17:11)
[2018-07-02] MEDS: NS 0.9% 1000 ML** 1,000 ML IV SCH (17:11)
[2018-07-02] MEDS: NIFEdipine CAP* 10 MG PO SCH ×2 (17:20→20:43)
[2018-07-02] MEDS: Morphine VIAL* 4 MG/ML VIAL (1 ml vial) IV PRN ×2 (18:27→22:44)
[2018-07-02] MEDS ORDERED: HYDROmorphone INJ1* 1 MG/ML SYRINGE IV SLOW PU PRN (20:41)
[2018-07-02] MEDS ORDERED: HYDROmorphone INJ1* 1 MG/ML SYRINGE ONE (21:06)
[2018-07-02] MEDS ORDERED: Enalaprilat IV* 1.25 MG/ML 1 ML VIAL (1.25 MG) IV PRN (21:31)
[2018-07-02] MEDS: Carvedilol TAB* 25 MG PO SCH (22:47)
[2018-07-03] MEDS: NS 0.9% 1000 ML** 1,000 ML IV SCH (00:16)
[2018-07-03] MEDS: Morphine VIAL* 4 MG/ML VIAL (1 ml vial) IV PRN ×4 (01:46→22:58)
[2018-07-03] MEDS: HYDROmorphone INJ1* 1 MG/ML SYRINGE IV SLOW PU PRN ×3 (02:40→18:03)
[2018-07-03 08:26] LABS: Hematocrit 39 % (42-52); Hemoglobin 13.2 g/dl (14.0-18.0); Mean Corpuscular HGB Conc 34 g/dl (31-36); Mean Corpuscular Hemoglobin 34 pg (27-31); Mean Corpuscular Volume 99 fL (80-94); Mean Platelet Volume 6.5 fL (7.4-10.4); Platelet Count 303 10^3/ul (150-450); Red Blood Count 3.92 10^6/ul (4.00-5.40); Red Cell Distribution Width 14 % (10.5-15); White Blood Count 6.9 10^3/ul (3.5-10.8)
[2018-07-03 08:32] LABS: BUN/Creatinine Ratio 16.4 (8-20); Calcium 8.4 mg/dL (8.6-10.3); EGFR African American 133.5 (>60); EGFR Non-African American 110.4 (>60); Potassium 3.6 mmol/L (3.5-5.0)
--- NOTE | 2018-07-03 08:43 | PN ---
Subjective Date of Service: 07/03/18 Interval History: Patient describes his low back/flank pain as a 7/10, which is mostly unchanged from when he arrived to the ED. Pt reports mild nausea early this AM, now resolved. Pt states he is quite nervous about potential procedure today. 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, has girlfriend, 2 step-children, non-smoker, no alcohol or drug use Past Medical History: Findings - HTN, anxiety, CAD (non-obstructive), h/o DVT and PE; Surgical Hx: LT 4th and 5th finger ORIF, LT knee arthroscopy Objective Active Medications: Acetaminophen (Tylenol Tab*) 650 mg PO Q4H PRN PRN Reason: FEVER/PAIN Last Admin: 07/02/18 20:42 Dose: 650 mg Carvedilol (Coreg Tab*) 12.5 mg PO BID [facility] Last Admin: 07/02/18 22:47 Dose: 12.5 mg Enalaprilat (Vasotec Iv*) 0.625 mg IV Q6H PRN PRN Reason: BLOOD PRESSURE Hydromorphone HCl (Dilaudid Inj1s*) 1 mg IV SLOW PU Q6H PRN PRN Reason: PAIN Last Admin: 07/03/18 02:40 Dose: 1 mg Sodium Chloride (Ns 0.9% 1000 Ml) 1,000 mls @ 150 mls/hr IV PER RATE [facility] Last Admin: 07/03/18 00:16 Dose: 150 mls/hr Morphine Sulfate (Morphine Vial*) 4 mg IV Q3H PRN PRN Reason: PAIN - MODERATE TO SEVERE Last Admin: 07/03/18 05:57 Dose: 4 mg Nifedipine (Procardia Cap*) 10 mg PO TID [facility] Last Admin: 07/02/18 20:43 Dose: 10 mg Ondansetron HCl (Zofran Inj*) 4 mg IV Q6H PRN PRN Reason: NAUSEA Tamsulosin HCl (Flomax Cap*) 0.4 mg PO DAILY [facility] Last Admin: 07/02/18 17:11 Dose: 0.4 mg Vital Signs - 8 hr 07/03/18 07/03/18 07/03/18 01:46 02:40 02:45 Temperature Pulse Rate Respiratory 16 16 16 Rate Blood Pressure (mmHg) O2 Sat by Pulse Oximetry 07/03/18 07/03/18 07/03/18 03:28 03:43 05:57 Temperature 98.0 F Pulse Rate 99 Respiratory 17 16 16 Rate Blood Pressure 149/79 (mmHg) O2 Sat by Pulse 97 Oximetry 07/03/18 07/03/18 07:16 07:25 Temperature 99.4 F Pulse Rate 100 Respiratory 16 16 Rate Blood Pressure 149/85 (mmHg) O2 Sat by Pulse 95 Oximetry Oxygen Devices in Use Now: None Appearance: Patient is sitting comfortably upright in bed, appearing in NAD Eyes: No Scleral Icterus, PERRLA Ears/Nose/Mouth/Throat: Mucous Membranes Moist Neck: - - supple Respiratory: Symmetrical Chest Expansion and Respiratory Effort, Clear to Auscultation Cardiovascular: NL Sounds; No Murmurs; No JVD, RRR Abdominal: NL Sounds; No Tenderness; No Distention, - - Abdomen soft; Bilateral CVA tenderness Extremities: No Edema, No Clubbing, Cyanosis Skin: No Rash or Ulcers Neurological: Alert and Oriented x 3, NL Muscle Strength and Tone, - - Mild resting tremor of bilateral hands Result Diagrams: 07/03/18 08:05 07/03/18 08:05 Additional Lab and Data: EtOH 305 Diagnostic Imaging: CT abdo/pelvis w/o contrast: LEFT UPJ stone, 1 cm, with hydronephrosis EKG Data: Normal sinus, normal axis, one PVC, no ischemia Assess/Plan/Problems-Billing Assessment: 57 year old with acute LT renal stone, at UPJ, causing hydronephrosis. - Patient Problems (1) Left nephrolithiasis Code(s): N20.0 - CALCULUS OF KIDNEY SNOMED Code(s): 22690198 Comment: -pt describes 7/10 pain but he is quite comfortable and conversational this AM -hematuria has continued, no signs of ELROY today -with associated left hydrophenrosis on CT -Dr. Ac recommends continue NPO at this time, pt will likely need stent, stone retreival -continue NS, flomax, and procardia -continue dilaudid and zofran prn for symptomatic control (2) Alcohol use disorder Code(s): F10.99 - ALCOHOL USE, UNSP WITH UNSPECIFIED ALCOHOL-INDUCED DISORDER SNOMED Code(s): 14245222 Comment: -patient with mild tremor this AM, nursing reports additional sxs as morning progresses -WAM protocol initiated --PO thiamine used due to hospital shortage of IV (3) HTN (hypertension) Code(s): I10 - ESSENTIAL (PRIMARY) HYPERTENSION SNOMED Code(s): 75668606 Comment: - Patient will be NPO, can try procardia tonight rather than norvasc - Will use enalaprilat IV if needed - continuing home coreg (4) DVT prophylaxis Code(s): ESW8700 - SNOMED Code(s): 574678567 Comment: - High risk due to h/o DVT/PE - continue SCDs - restart home eliquis 2.5mg BID, ok per Dr. Ac (5) Full code status Code(s): Z78.9 - OTHER SPECIFIED HEALTH STATUS SNOMED Code(s): 498092902 Status and Disposition: inpatient
[2018-07-03] MEDS: Tamsulosin CAP* 0.4 MG PO SCH (08:48)
[2018-07-03] MEDS: Carvedilol TAB* 25 MG PO SCH ×2 (08:48→20:58)
[2018-07-03] MEDS: NIFEdipine CAP* 10 MG PO SCH ×3 (08:48→20:58)
[2018-07-03] MEDS ORDERED: Acetaminophen TAB* 325 MG PO PRN (12:22)
[2018-07-03] MEDS ORDERED: Thiamine IV* 100 MG/ML 2 ML VIAL IM ONE (12:22)
[2018-07-03] MEDS ORDERED: LORazepam INJ* 2 MG/ML 1 ML VIAL IV PUSH SCH (13:00)
[2018-07-03] MEDS ORDERED: Ondansetron INJ* 2 MG/ML VIAL ONE (18:22)
[2018-07-03] MEDS ORDERED: Lidocaine 2% PF * 5 ML VIAL ONE (18:22)
[2018-07-03] MEDS ORDERED: Propofol* 10 MG/ML 20 ML BTL ONE (18:22)
[2018-07-03] MEDS ORDERED: Iohexol 180 (CONTRAST) 10 ML SDV IV ONE (18:22)
[2018-07-03] MEDS ORDERED: fentaNYL* 50 MCG/ML 2 ML VIAL (100 MCG VIAL) ONE (18:22)
[2018-07-03] MEDS ORDERED: Dexamethasone IV* 4 MG/ML 1 ML (4 MG) ONE (18:22)
[2018-07-03] MEDS ORDERED: Midazolam* 1 MG/ML 5 ML VIAL (5 MG) ONE (18:22)
[2018-07-03] MEDS ORDERED: Levofloxacin 500 MG IVPREMIX(* 500 MG/100 ML BAG IVPB ONE (18:35)
[2018-07-03] MEDS ORDERED: fentaNYL* 50 MCG/ML 2 ML VIAL (100 MCG VIAL) IV PRN (19:19)
[2018-07-03] MEDS ORDERED: Naloxone* 0.4 MG/ML 1 ML VIAL IV PRN (19:19)
[2018-07-03] MEDS ORDERED: Ondansetron INJ* 2 MG/ML VIAL IV PRN (19:19)
[2018-07-03] MEDS: Apixaban* 2.5 MG TAB PO SCH (20:58)
--- NOTE | 2018-07-03 21:49 | OP ---
DATE OF OPERATION: 07/03/18 - ROOM #338 DATE OF : 58 SURGEON: Irvin Ac MD ANESTHESIOLOGIST: Dr. Maxx Sung. ANESTHESIA: General. PRE-OP DIAGNOSES: 1. Left renal colic due to proximal left ureteral calculus. 2. Bilateral nonobstructing renal calculi. POST-OP DIAGNOSIS: Radiolucent bilateral renal calculi and proximal Lt ureteral calculus (1 cm) OPERATIVE PROCEDURE: 1. Cystoscopy. 2. Left retrograde pyelography. 3. Insertion of left ureteral stent (6-Uruguayan). INDICATION FOR PROCEDURE: Mr. North is a 57-year-old white male who noticed total gross painless hematuria two days ago. He then developed left flank pain and he presented to the emergency room yesterday. Noncontrast CT of the abdomen and pelvis showed 1 cm calculus in the proximal left ureter just distal to the ureteropelvic junction. There was 1 nonobstructing calculus measuring about 1 cm in each kidney. The patient was admitted for IV fluid and pain control. On his admission, he was noted to have an elevated serum alcohol level and we had to wait until his blood alcohol level is down. He is now taken to the operating room for insertion of a left ureteral stent in preparation for definitive treatment of the stone. PATHOLOGY AT CYSTOSCOPY: The penile and bulbar urethrae looked normal. The bladder mucosa looked normal. There were no suspicious bladder lesions seen. There was a single orthotopic orifice on each side. Clear efflux was seen coming from both orifices. At fluoroscopy, no radiopaque calculi were noted in the path of the left ureter or in either kidney. On left retrograde pyelography, there was a 1 cm smooth filling defect in the proximal left ureter consistent with a radiolucent calculus. There was no hydronephrosis noted. DESCRIPTION OF PROCEDURE: After successful general anesthesia, the patient was placed in the lithotomy position and was prepped and draped for a cystoscopy. Cystoscopy was performed. The bladder was carefully inspected and the above findings were noted. A flexible tip guidewire was then introduced into the left orifice. An open- ended catheter was fed on top of the guidewire and retrograde pyelography was performed demonstrating the above pathology, namely the filling defect in the proximal ureter consistent with a radiolucent stone. A size 6-Uruguayan stent was then placed. The proximal end coiled in the upper pole collecting system and the distal end coiled inside the bladder. There was good drainage of contrast from the kidney and no extravasation. The patient tolerated the procedure well and left the operating room in good condition. The patient most likely has uric acid renal and ureteral calculi. The plan is to obtain a KUB postop and to check his serum uric acid. A decision on the definitive treatment of the stones will depend upon the above results. [id number]/[facility] #: [id number] [facility]ITALEleni
[2018-07-04] MEDS: NS 0.9% 1000 ML** 1,000 ML IV SCH (01:24)
[2018-07-04] MEDS: HYDROmorphone INJ1* 1 MG/ML SYRINGE IV SLOW PU PRN (01:24)
[2018-07-04] MEDS: Morphine VIAL* 4 MG/ML VIAL (1 ml vial) IV PRN ×2 (02:42→06:48)
[2018-07-04 06:59] LABS: ABS Basophils 0 10^3/ul (0-0.2); ABS Eosinophils 0 10^3/ul (0-0.6); ABS Lymphocytes 0.4 10^3/ul (1.0-4.8); ABS Monocytes 0 10^3/ul (0-0.8); ABS Neutrophils 2.8 10^3/ul (1.5-7.7); ABS Nucleated RBC 0 10^3/ul; Eosinophil % 0 %; Hematocrit 41 % (42-52); Hemoglobin 13.9 g/dl (14.0-18.0); Lymphocyte % 12.6 %; Mean Corpuscular HGB Conc 34 g/dl (31-36); Mean Corpuscular Hemoglobin 34 pg (27-31); Mean Corpuscular Volume 100 fL (80-94); Mean Platelet Volume 6.9 fL (7.4-10.4); Nucleated Red Blood Cells % 0.2; Platelet Count 283 10^3/ul (150-450); Red Blood Count 4.12 10^6/ul (4.00-5.40); Red Cell Distribution Width 14 % (10.5-15); White Blood Count 3.2 10^3/ul (3.5-10.8)
[2018-07-04 07:16] LABS: BUN/Creatinine Ratio 13.9 (8-20); Calcium 8.7 mg/dL (8.6-10.3); EGFR African American 121.9 (>60); EGFR Non-African American 100.7 (>60); Magnesium 1.8 mg/dL (1.9-2.7); Phosphorus 2.5 mg/dL (2.5-5.0); Potassium 3.9 mmol/L (3.5-5.0); Uric Acid 6.5 mg/dL (4.4-7.6)
[2018-07-04] MEDS ORDERED: Folic Acid TAB* 1 MG PO SCH (09:00)
[2018-07-04] MEDS ORDERED: Thiamine TAB* 100 MG TAB PO SCH (09:00)
[2018-07-04] MEDS ORDERED: Multivitamins/Minerals TAB PO SCH (09:00)
[2018-07-04] MEDS ORDERED: HYDROcodone/ACETAMIN 5-325 MG* 1 TAB PO PRN ×2 (09:11→13:14)
[2018-07-04] MEDS: NIFEdipine CAP* 10 MG PO SCH (09:40)
[2018-07-04] MEDS: Carvedilol TAB* 25 MG PO SCH (09:40)
[2018-07-04] MEDS: Apixaban* 2.5 MG TAB PO SCH (09:41)
[2018-07-04] MEDS: Tamsulosin CAP* 0.4 MG PO SCH (09:41)
[2018-07-04] MEDS ORDERED: amLODIPine TAB* 5 MG PO SCH (11:00)
[2018-07-04 11:52] LABS: Urine Appearance Cloudy; Urine Bacteria Absent (Absent); Urine Bilirubin Negative (Negative); Urine Blood 3+ (Negative); Urine Color Yellow; Urine Glucose Negative (Negative); Urine Ketones Negative (Negative); Urine Nitrite Negative (Negative); Urine Protein 2+(100 mg/dL) (Negative); Urine Red Blood Cell 3+(>10/hpf) (Absent); Urine Specific Gravity 1.013 (1.010-1.030); Urine Urobilinogen Negative (Negative); Urine White Blood Cell Absent (Absent)
--- NOTE | 2018-07-04 12:23 | PN ---
Subjective Date of Service: 07/04/18 Interval History: Patient is feeling better today. His low back/flank pain is improved. He reports pain at the meatus of his penis due to the procedure yesterday. He reports hematuria today that is less dark than yesterday. Denies chest pain, SOB , abd pain, fever, and chills. 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-children, non-smoker, no alcohol or drug use Past Medical History: Findings - HTN, anxiety, CAD (non-obstructive), h/o DVT and PE; Surgical Hx: LT 4th and 5th finger ORIF, LT knee arthroscopy Objective Active Medications: Acetaminophen (Tylenol Tab*) 650 mg PO Q4H PRN PRN Reason: FEVER/PAIN Last Admin: 07/02/18 20:42 Dose: 650 mg Acetaminophen (Tylenol Tab*) 650 mg PO Q4H PRN PRN Reason: PAIN Last Admin: 07/03/18 21:57 Dose: 650 mg Hydrocodone Bitart/Acetaminophen ([place] 5-325 Tab*) 1 tab PO Q4H PRN PRN Reason: PAIN Last Admin: 07/04/18 09:40 Dose: 1 tab Amlodipine Besylate (Norvasc Tab*) 2.5 mg PO DAILY [facility] Last Admin: 07/04/18 11:03 Dose: 2.5 mg Apixaban (Eliquis*) 5 mg PO BID [facility] Carvedilol (Coreg Tab*) 12.5 mg PO BID [facility] Last Admin: 07/04/18 09:40 Dose: 12.5 mg Enalaprilat (Vasotec Iv*) 0.625 mg IV Q6H PRN PRN Reason: BLOOD PRESSURE Folic Acid (Folvite Tab*) 1 mg PO DAILY [facility] Last Admin: 07/04/18 09:40 Dose: 1 mg Lorazepam (Ativan Inj*) 0 - 3 mg IV PUSH .PER [facility] PROTOCOL [facility]; Protocol Last Admin: 07/03/18 13:25 Dose: 1.5 mg Multivitamins/Minerals (Theragran/Minerals Tab*) 1 tab PO DAILY [facility] Last Admin: 07/04/18 09:41 Dose: 1 tab Ondansetron HCl (Zofran Inj*) 4 mg IV Q6H PRN PRN Reason: NAUSEA Thiamine HCl (Vitamin B-1 Tab*) 100 mg PO DAILY [facility] Last Admin: 07/04/18 09:41 Dose: 100 mg Vital Signs - 8 hr 07/04/18 07/04/18 07/04/18 04:29 06:27 06:48 Temperature 97.6 F 97.8 F Pulse Rate 99 114 Respiratory 20 18 16 Rate Blood Pressure 152/98 146/96 (mmHg) O2 Sat by Pulse 98 99 Oximetry 07/04/18 07/04/18 07/04/18 07:15 07:16 08:00 Temperature 98.3 F 97.8 F Pulse Rate 71 110 Respiratory 17 17 18 Rate Blood Pressure 150/79 142/91 (mmHg) O2 Sat by Pulse 99 99 Oximetry 07/04/18 07/04/18 08:30 09:40 Temperature Pulse Rate Respiratory 18 18 Rate Blood Pressure (mmHg) O2 Sat by Pulse Oximetry Oxygen Devices in Use Now: None Appearance: Patient sitting upright in hospital bed, appearing in NAD Eyes: No Scleral Icterus, PERRLA Ears/Nose/Mouth/Throat: Mucous Membranes Moist Neck: NL Appearance and Movements; NL JVP, Trachea Midline Respiratory: Symmetrical Chest Expansion and Respiratory Effort, Clear to Auscultation Cardiovascular: NL Sounds; No Murmurs; No JVD, RRR Abdominal: - - Abdomen soft and nontender; no CVA tenderness bilaterally Lymphatic: No Cervical Adenopathy Extremities: No Edema, No Clubbing, Cyanosis, - - no calf tenderness Skin: No Rash or Ulcers Neurological: Alert and Oriented x 3, NL Muscle Strength and Tone Result Diagrams: 07/04/18 06:09 07/04/18 06:09 Additional Lab and Data: EtOH 305 Microbiology and Other Data: Microbiology 07/02/18 11:52 Aerobic Blood Culture - Preliminary Blood Venous No Growth Day 2 Anaerobic Blood Culture - Preliminary No Growth Day 2 07/02/18 11:42 Aerobic Blood Culture - Preliminary Blood Venous No Growth Day 2 Anaerobic Blood Culture - Preliminary No Growth Day 2 07/02/18 14:41 Urine Culture - Final Urine No Growth (<1,000 CFU/mL) Diagnostic Imaging: CT abdo/pelvis w/o contrast: LEFT UPJ stone, 1 cm, with hydronephrosis EKG Data: Normal sinus, normal axis, one PVC, no ischemia Assess/Plan/Problems-Billing Assessment: 57 year old with acute LT renal stone, at UPJ, causing hydronephrosis. - Patient Problems (1) Left nephrolithiasis Code(s): N20.0 - CALCULUS OF KIDNEY SNOMED Code(s): 05464617 Comment: -pt describes 7/10 pain but he is quite comfortable and conversational this AM -hematuria has continued, no signs of ELROY today -with associated left hydrophenrosis on CT -Dr. Ac recommends continue NPO at this time, pt will likely need stent, stone retreival -continue NS, flomax, and procardia -continue dilaudid and zofran prn for symptomatic control (2) Alcohol use disorder Code(s): F10.99 - ALCOHOL USE, UNSP WITH UNSPECIFIED ALCOHOL-INDUCED DISORDER SNOMED Code(s): 50660777 Comment: -patient with mild tremor this AM, nursing reports additional sxs as morning progresses -WA protocol initiated --PO thiamine used due to hospital shortage of IV (3) HTN (hypertension) Code(s): I10 - ESSENTIAL (PRIMARY) HYPERTENSION SNOMED Code(s): 89518744 Comment: - Patient will be NPO, can try procardia tonight rather than norvasc - Will use enalaprilat IV if needed - continuing home coreg (4) DVT prophylaxis Code(s): CHD6525 - SNOMED Code(s): 364310684 Comment: - High risk due to h/o DVT/PE - continue SCDs - restart home eliquis 2.5mg BID, ok per Dr. Ac (5) Full code status Code(s): Z78.9 - OTHER SPECIFIED HEALTH STATUS SNOMED Code(s): 399323101 Status and Disposition: inpatient
[2018-07-04 12:41] LABS: Hematocrit 39 % (42-52); Hemoglobin 13.5 g/dl (14.0-18.0); Mean Corpuscular HGB Conc 34 g/dl (31-36); Mean Corpuscular Hemoglobin 34 pg (27-31); Mean Corpuscular Volume 100 fL (80-94); Mean Platelet Volume 6.6 fL (7.4-10.4); Platelet Count 294 10^3/ul (150-450); Red Blood Count 3.95 10^6/ul (4.00-5.40); Red Cell Distribution Width 14 % (10.5-15); White Blood Count 5.1 10^3/ul (3.5-10.8)
[2018-07-04] MEDS ORDERED: Magnesium Sulfate 1 GM IV* 1 GM/100 ML BAG IV ONE (13:00)
[2018-07-04 15:53] VITALS: BP 160/86
--- NOTE | 2018-07-04 17:00 | DS ---
CC: Dr. Ac; Dr. Fay Tilley * DISCHARGE SUMMARY: DATE OF ADMISSION: 07/02/18 DATE OF DISCHARGE: 07/04/18 PROVIDER: DWAYNE Pickens ATTENDING PHYSICIAN: Dr. Dinesh Garrett * (dictated by DWAYNE Pickens). PRIMARY CARE PROVIDER: Dr. Fay Tilley. PRIMARY DIAGNOSIS: Left-sided nephrolithiasis with hydronephrosis. SECONDARY DIAGNOSES: 1. Alcohol use disorder. 2. Hypertension. 3. Coronary artery disease. 4. Anxiety. 5. History of deep venous thrombosis and pulmonary embolism. CONSULTS: Dr. Ac, Urology. PROCEDURES WHILE IN THE HOSPITAL: 07/03/18: cystoscopy, left retrograde pyelography, and insertion of left ureteral stent. Impression for pyelography: "Procedural control films." Report: "Spot images document left retrograde pyelogram with moderate hydronephrosis. Ureteral stent placed with decompression of the collecting system. STUDIES WHILE IN THE HOSPITAL: 1. 07/02/18: CT of the abdomen and pelvis. Impression: "There is a calculus at the left ureteropelvic junction measuring up to 1 cm with resulting moderate left hydronephrosis. Nonobstructive calculi are noted in both kidneys. No evidence of cholelithiasis or biliary duct dilation." 2. 07/06/18: x-ray of the abdomen. Impression: Left ureteral stent. DISCHARGE MEDICATIONS: 1. Potassium citrate 20 mEq p.o. t.i.d. 2. Henrietta 5/325 one tab p.o. q.4 hours p.r.n. pain. 3. Acetaminophen 325 p.o. q.4 hours p.r.n. Continued home medications: 1. Omeprazole 40 mg p.o. daily. 2. Xanax 0.25 mg p.o. t.i.d. p.r.n. 3. Albuterol inhaler 2 puffs q.4 hours p.r.n. 4. Amlodipine 2.5 mg p.o. daily. 5. Coreg 12.5 mg p.o. b.i.d. 6. Gabapentin 100 mg p.o. at bedtime. 7. Eliquis 5 mg p.o. b.i.d. HISTORY OF PRESENT ILLNESS/HOSPITAL COURSE: Santino North is a 57-year-old male with past medical history of anxiety, alcohol use, hypertension, nonobstructive CAD, history of urolithiasis, and history of DVT and PE, who presented to the emergency room on 07/02/18 with gross hematuria 1 day prior. He had two 24-ounce beers prior to reporting to the emergency department. In the emergency department, he had a CT of the abdomen and pelvis and was found to have left-sided nephrolithiasis with moderate hydronephrosis. He was then admitted to the hospital by the hospitalist service. On admission, the patient began receiving IV hydration, Flomax, and Procardia to potentially assist passage of the kidney stone. During his stay, he was seen by Urology consult, Dr. Ac. On 07/03/18, Dr. Ac placed a left-sided ureteral stent. The patient tolerated the procedure well. Dr. Ac found the patient to have uric acid renal and ureteral calculi. The uric acid test was within normal limits. Postoperative KUB confirmed placement of the stent and there were no radiopaque calculi. Regarding his alcohol use disorder, the patient was intoxicated when admitted from the emergency department. The following day, he was no longer intoxicated, and WAM protocol was initiated. PO thiamine was utilized in the WAM protocol instead of IV due to hospital shortage. During his stay, he only received 1 dose of Ativan per WAM protocol. The patient had no history of withdrawal seizures. Regarding treatment of his hypertension, his home Coreg was continued, but his Norvasc was held because he was receiving Procardia to help passage of the stone. During his stay, his blood pressure was within normal limits during the majority of his stay with an elevation on the final day of his stay and his home medicine was restarted. Regarding his anxiety, his home Xanax was continued p.r.n. Regarding his history of DVT and PE, the patient's home Eliquis was continued, which was okay with Dr. Ac, who did not need the medicine held for the procedure. Additionally, during his stay he was at one point found to meet 2 SIRS criteria with white blood cell count of 3.2 and tachycardic to 110 beats per minute. Sepsis protocol was not initiated at this time because the patient was admitted to the hospital with white blood cell count of 4.2 and received IV fluids during his time. The white blood cell count of 3.2 is likely explained by combination of dilution and possibly pancytopenia secondary to alcohol use disorder. Today, the patient is mostly experiencing pain at his penile meatus, which he attributes to the procedure the day before. His low back pain is far improved. He denies nausea, vomiting, and abdominal pain. The patient noted hematuria this morning , though was far improved from the day prior. REVIEW OF SYSTEMS: A complete 11-system review of systems was completed and pertinent positives and negatives are noted above. PHYSICAL EXAMINATION: General: The patient is sitting upright in bed comfortably, appearing in no acute distress. Head is normal and atraumatic. Eyes: PERRL. No scleral icterus. ENT: Moist mucous membranes. Neck is supple. Cardio: Regular rate and rhythm without murmurs, rubs, or gallops. Respiratory: Clear to auscultation throughout. Abdomen: Abdomen is soft and nontender. No CVA tenderness bilaterally. Extremities: There is no clubbing or edema bilaterally. Neuro: The patient is alert and oriented x3. Able to move all extremities equally. No tremor. DISCHARGE PLAN: The patient is to return to his normal activity as tolerated, a work note was provided to limit lifting of weight greater than 10 pounds. Diet: Regular. The patient is to follow up with his PCP within 1 week. At this time, it is suggested to have a CBC, a magnesium and BMP repeated. His PCP can release him to lift greater than [address] Ac would like the patient to follow up in 2 to 3 weeks. He is to continue with the potassium citrate as prescribed. The patient was educated regarding his current mild hematuria likely being due to his procedure the day prior. He was prescribed 3-day supply of Henrietta for pain and advised to use in combination with Tylenol. He was educated regarding the maximum dose of Tylenol. Reference number for prescribing narcotic in the [facility] is [id number]. The patient was advised to discontinue drinking alcohol, and was educated on the risks of alcohol use in combination with apixaban. For his anxiety, he is to resume his home medicine of Xanax. For his hypertension and nonobstructive CAD, he is to resume his home Norvasc and Coreg. For his history of DVT and PE, he is to resume his apixaban. The patient was educated to return to the emergency room if hematuria worsens or does not improve, flank pain, fever, or chills. CONDITION ON DISCHARGE: Stable. TIME SPENT: Approximately 55 minutes was spent on discharge of this patient, approximately half spent at bedside. DWAYNE PICKENS [id number]/[facility] #: [id number] [facility]
[2018-07-04] MEDS ORDERED: Apixaban* 5 MG TAB PO SCH (21:00)
== END 2018-07-04 15:20 | disposition home or self-care (01) | DRG 465 ==
LOC: ED 11:15 → SSU 15:02
PROVIDERS: ADMIT Internal Medicine; ATTEND Internal Medicine
PROC: 0T778DZ Dilation of Left Ureter with Intraluminal Device, Via Natural or Artificial Opening Endoscopic (ICD-10-PCS; 2018-07-03)
PROC: BT1FZZZ Fluoroscopy of Left Kidney, Ureter and Bladder (ICD-10-PCS; principal; 2018-07-03 19:00)
DX: N13.2 Hydronephrosis with renal and ureteral calculous obstruction (principal); R65.10 Systemic inflammatory response syndrome (SIRS) of non-infectious origin without acute organ dysfunction; D61.818 Other pancytopenia; I25.10 Atherosclerotic heart disease of native coronary artery without angina pectoris; F41.9 Anxiety disorder, unspecified; E78.00 Pure hypercholesterolemia, unspecified; N18.9 Chronic kidney disease, unspecified; F10.929 Alcohol use, unspecified with intoxication, unspecified; R31.9 Hematuria, unspecified; K21.9 Gastro-esophageal reflux disease without esophagitis; Y90.8 Blood alcohol level of 240 mg/100 ml or more; I12.9 Hypertensive chronic kidney disease with stage 1 through stage 4 chronic kidney disease, or unspecified chronic kidney disease; Z79.01 Long term (current) use of anticoagulants; Z82.49 Family history of ischemic heart disease and other diseases of the circulatory system; Z83.3 Family history of diabetes mellitus; Z84.1 Family history of disorders of kidney and ureter; Z86.718 Personal history of other venous thrombosis and embolism; Z86.711 Personal history of pulmonary embolism; Z88.1 Allergy status to other antibiotic agents; Z91.041 Radiographic dye allergy status; Z82.5 Family history of asthma and other chronic lower respiratory diseases; Z91.012 Allergy to eggs; Z91.018 Allergy to other foods
CPT/HCPCS: 36415; 74018; 74176; 74420; 80048; 80053; 80307; 80320; 80329; 81003; 81015; 83605; 83690; 83735; 84100; 84550; 85025; 85027; 86140; 87040; 87086; 93005; 99285; A9270-GY; C1876; G0480; J1100; J1170; J1956; J2060; J2250; J2270; J2405; J2704; J3010; J3475

== ENCOUNTER 2019-01-14 17:46 | Emergency (ER) | payer OTHER ==
--- NOTE | 2019-01-14 18:01 | ED ---
Dizziness - HPI Summary HPI Summary: This pt is a 58 y/o male presenting to [facility] c/o dizziness for the past 4 days now. Pt describes dizziness as room spinning sensation. He has never had these symptoms in the past. Additionally reports chest pain that began 1 week ago. Denies nausea, vomiting. Per triage not, pt with chronic bilateral leg pain. Pt admits to drinking alcohol today, 2 cans of beer. Denies tobacco and drug use. PMHx: kidney disease. - History Of Current Complaint Chief Complaint: EDChestPainROMI Stated Complaint: DIZZY PER EMS Time Seen by Provider: 01/14/19 17:50 Hx Obtained From: Patient Onset/Duration: Still Present Timing: Days Severity Currently: Moderate Character: Room Spinning, Dizzy Aggravating Factor(s): Nothing Alleviating Factor(s): Nothing Associated Signs And Symptoms: Positive: Chest Pain. Negative: Nausea, Vomiting , Fever, Chills - Allergies/Home Medications Allergies/Adverse Reactions: Allergies Allergy/AdvReac Type Severity Reaction Status Date / Time cephalexin [From Keflex] Allergy Rash Verified 07/27/18 07:26 egg Allergy Vomiting Verified 07/27/18 07:26 iodine Allergy Rash Verified 07/27/18 07:26 banana AdvReac Nausea And Verified 07/27/18 07:26 Vomiting PMH/Surg Hx/FS Hx/Imm Hx Endocrine/Hematology History: Denies: Hx Diabetes Cardiovascular History: Reports: Hx Hypercholesterolemia, Hx Hypertension, Hx Peripheral Vascular Disease - NEEDS TO VASCULAR SURGEON "BAD VEINS" Denies: Hx Congestive Heart Failure, Hx Pacemaker/ICD, Other Cardiovascular Problems/Disorders Respiratory History: Reports: Hx Pulmonary Embolism - ON ELIQUIS 2018 DVT IN LEG A "FEW YEARS AGO", Other Respiratory Problems/Disorders - PE 2016 Denies: Hx Asthma History: Reports: Hx Chronic Renal Failure - creat elevated , Hx Kidney Stones - PRESENTLY LEFT STONE, Other Problems/Disorders - reduced renal function PT. NOT SURE IF THIS IS CURRENT Denies: Hx Renal Disease Sensory History: Reports: Hx Contacts or Glasses - GLASSES Denies: Hx Hearing Aid, Hx Hearing Problem Opthamlomology History: Reports: Hx Contacts or Glasses - GLASSES Psychiatric History: Reports: Hx Anxiety - HISTORY OF Denies: Hx Eating Disorder - Cancer History Hx Chemotherapy: No Hx Radiation Therapy: No Hx Palliative Cancer Treatment: No - Surgical History Surgical History: Yes Surgery Procedure, Year, and Place: LT.KNEE/MENISCUS 2010, LT 4TH FINGER CRUSH INJ.W/SX 2006. June 2015 Cardiac Catherization Hx Anesthesia Reactions: No Infectious Disease History: Yes Infectious Disease History: Denies: History Other Infectious Disease, Traveled Outside the [place] in Last 30 Days - Family History Known Family History: Positive: Cardiac Disease, Hypertension, Diabetes, Renal Disease - Sister at 27 y.o with kidney failure, Respiratory Disease - Father with emphysema - Social History Alcohol Use: Rare Alcohol Amount: A BEER ONCE IN A WHILE Hx Substance Use: No Substance Use Type: Reports: None Hx Tobacco Use: No Smoking Status (MU): Never Smoked Tobacco Have You Smoked in the Last Year: No Review of Systems Negative: Fever, Chills Positive: Chest Pain Negative: Vomiting, Nausea Musculoskeletal: Other - POSITIVE: chronic bilateral leg pain Neurological: Other - POSITIVE: dizziness All Other Systems Reviewed And Are Negative: Yes Physical Exam - Summary Physical Exam Summary: VITAL SIGNS: Reviewed. GENERAL: Patient is a well-developed and nourished male who is lying comfortable in the stretcher. Patient is not in any acute respiratory distress. HEAD AND FACE: No signs of trauma. No ecchymosis, hematomas or skull depressions. No sinus tenderness. EYES: PERRLA, EOMI x 2, No injected conjunctiva. No nystagmus. EARS: Hearing grossly intact. Ear canals and tympanic membranes are within normal limits. MOUTH: Oropharynx within normal limits. NECK: Supple, trachea is midline, no adenopathy, no JVD, no carotid bruit, no c- spine tenderness, neck with full ROM. CHEST: Symmetric, no tenderness at palpation LUNGS: Clear to auscultation bilaterally. No wheezing or crackles. CVS: Regular rate and rhythm, S1 and S2 present, no murmurs or gallops appreciated. ABDOMEN: Soft, non-tender. No signs of distention. No rebound no guarding, and no masses palpated. Bowel sounds are normal. EXTREMITIES: FROM in all major joints, no edema, no cyanosis or clubbing. NEURO: Alert and oriented x 3. No acute neurological deficits. Speech is normal and follows commands. SKIN: Dry and warm GCS: 15 Triage Information Reviewed: Yes Vital Signs On Initial Exam: Initial Vitals Temp Pulse Resp BP Pulse Ox 98.6 F 107 21 156/100 95 01/14/19 17:48 01/14/19 17:48 01/14/19 17:48 01/14/19 17:48 01/14/19 17:48 Vital Signs Reviewed: Yes Diagnostics - Vital Signs Vital Signs Temp Pulse Resp BP Pulse Ox 01/14/19 17:48 98.6 F 107 21 156/100 95 - Laboratory Result Diagrams: 01/14/19 19:00 01/14/19 19:00 Lab Statement: Any lab studies that have been ordered have been reviewed, and results considered in the medical decision making process. - Radiology Chest XR Radiology Interpretation Completed By: ED Physician Summary of Radiographic Findings: Negative chest XR. - CT Brain CT CT Interpretation Completed By: Radiologist Summary of CT Findings: IMPRESSION: 1. 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 2. No acute intracranial pathology. Dr. Chavez has reviewed this report. - EKG 17:56 Cardiac Rate: Tachycardia - at 101 bpm EKG Rhythm: Sinus Tachycardia EKG Comparison: No Significant Change - Similar to prior EKG on 07/02/18. Summary of EKG Findings: Sinus tachycardia at 101 bpm. Q waves in leads III and aVF. Re-Evaluation - Re-Evaluation First Eval Re-Evaluation Time: 19:56 Comment: Discussed results with pt. He will be discharged home. 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 No acute interconnected pathology. Chest x-ray impression no acute pathology. Blood work without any significant abnormality except for anion gap of 13, lactic acid is 3.2, AST 59, serum alcohol is 394. Therefore I believe that the elevated lactic acid is secondary to the alcohol level and his dizziness secondary to the alcohol. At this point the patient is hemodynamically stable, alert and oriented 3. Patient will be discharged home with his and his son. - Diagnoses Provider Diagnoses: Alcohol intoxication Discharge ED - Sign-Out/Discharge Documenting (check all that apply): Patient Departure - Discharge home Patient Received Moderate/Deep Sedation with Procedure: No - Discharge Plan Condition: Stable Disposition: HOME Patient Education Materials: Alcohol Intoxication (ED) Referrals: Fay Tilley MD [Primary Care Provider] - Additional Instructions: Follow up with your primary care provider in 2-3 days. RETURN TO THE EMERGENCY DEPARTMENT FOR ANY WORSENING OR NEW SYMPTOMS. - Billing Disposition and Condition Condition: STABLE Disposition: Home - Attestation Statements Document Initiated by Doug: Yes Documenting Scribe: Violet Hernandez Provider For Whom Doug is Documenting (Include Credential): Jono Chavez MD Scribe Attestation: Violet Chase, scribed for Jono Chavez MD on 01/14/19 at 2144. Scribe Documentation Reviewed: Yes Provider Attestation: The documentation as recorded by the Violet chavez accurately reflects the service I personally performed and the decisions made by me, Jono Chavez MD Status of Scribe Document: Viewed
--- OUTSIDE RECORDS SUMMARY | 2019-01-14 18:20 | XMS REPORT | Summary of Care ---
:1960 Author Organization [facility] Address [address] [place] [address] Care Team Providers Name Role Phone Fay Tilley MD Primary Care Provider Reason for Visit Reason Comments Follow Up 2wk for anxeity Encounter Details Date Type Department Care Team Description 12/20/2018 Office Visit [place] Laura Zepeda (Primary Dx); Practice MD Fay Dyslipidemia; [address] Insomnia, unspecified type; [place] [address] [place] [address] Elevated blood sugar [phone] Allergies Active Allergy Reactions Severity Noted Date Comments Banana Other 05/05/2015 Swelling lips Shell Fish Swelling High 05/05/2015 Keflex Rash 05/05/2015 Atorvastatin GI Reaction 06/12/2017 nausea Shellfish Allergy Respiratory Reaction High 05/05/2015 documented as of this encounter (statuses as of 12/20/2018) Medications Medication Sig Dispensed Refills Start Date End Date Status Omeprazole 40 MG Oral Take 1 Cap by 30 Cap 5 01/23/2018 Active CAPSULE DELAYED mouth DAILY. RELEASEIndications: Acute gastritis, presence of bleeding unspecified, unspecified gastritis type Additional information Patient taking differently: 40 mg Oral DAILY PRN, Reported on 04/20/2018 10: 30 AM albuterol HFA Take 2 Puffs by 1 Inhaler 1 06/06/2018 Active (VENTOLIN) 108 (90 inhalation EVERY Base) MCG/ACT FOUR HOURS Inhalation Aero Soln NEEDED (wheezing). potassium citrate 20 meq PO QD 0 07/04/2018 Active (UROCIT-K) 10 MEQ (1080 MG) Oral Tab CR apixaban (ELIQUIS) 5 Take 1 Tab by 60 Tab 2 09/05/2018 Active MG Oral Tab mouth TWICE DAILY. metroNIDAZOLE 75 Tubes by 0 Active (METROCREAM) 0.75 % Topical route Apply externally TWICE DAILY. Cream Aug Betamethasone 1 Appl by Apply 1 Bottle 1 09/26/2018 Active Dipropionate externally route (DIPROLENE) 0.05 % TWICE DAILY. Apply externally Lotion amLodipine (NORVASC) TAKE 1 TABLET BY 30 Tab 5 11/12/2018 Active 2.5 MG Oral Tab MOUTH EVERY DAY ALPRAZolam (XANAX) TAKE 1 TABLET BY 20 Tab 0 11/21/2018 Active 0.25 MG Oral MOUTH EVERY DAY TabIndications: NEEDED FOR ANXIETY Anxiety - MAXIMUM DAILY DOSE OF 1 PER DAY carvedilol (COREG) Take 1 Tab by 60 Tab 5 12/12/2018 Active 12.5 MG Oral Tab mouth TWICE DAILY. pravastatin Take 40 mg by 30 Tab 3 12/20/2018 Active (PRAVACHOL) 40 MG mouth DAILY. Oral Tab trazodone (DESYREL) Take 1 Tab by 30 Tab 1 12/20/2018 Active 100 MG Oral Tab mouth EVERY BEDTIME. duloxetine Take 2 Caps by 60 Cap 1 12/20/2018 Active (CYMBALTA) 20 MG mouth DAILY. Oral CAPSULE ENTERIC COATED PARTICLES duloxetine Take 1 Cap by 30 Cap 1 12/06/201812/20/ Discontinued (CYMBALTA) 20 MG mouth DAILY. 2019 (Reorder) Oral CAPSULE ENTERIC COATED PARTICLES trazodone (DESYREL) Take 1 Tab by 30 Tab 1 12/06/201812/20/ Discontinued 50 MG Oral Tab mouth EVERY 2019 BEDTIME. documented as of this encounter (statuses as of 12/20/2018) Active Problems Problem Noted Date DVT, recurrent, lower extremity, chronic, unspecified laterality 01/22/2018 Anxiety 05/12/2015 Essential hypertension 05/12/2015 Psoriasis 05/12/2015 documented as of this encounter (statuses as of 12/20/2018) Resolved Problems Problem Noted Date Resolved Date Cardiomyopathy 06/08/2015 01/22/2018 documented as of this encounter (statuses as of 12/20/2018) Social History Tobacco Use Types Packs/Day Years Used Date Never Smoker Smokeless Tobacco: Never Used Alcohol Use Drinks/Week oz/Week Comments Yes 0 Standard drinks or equivalent 0.0 occasional Sex Assigned at Date Recorded Not on file Job Start Date Occupation Industry Not on file Not on file Not on file Travel History Travel Start Travel End No recent travel history available. documented as of this encounter Last Filed Vital Signs Vital Sign Reading Time Taken Comments Blood Pressure 118/70 12/20/2018 1:15 PM EDT Pulse 65 12/20/2018 1:15 PM EDT Temperature 36.8 12/20/2018 1:15 PM EDT C (98.2 F) Respiratory Rate - - Oxygen Saturation 96% 12/20/2018 1:15 PM EDT Inhaled Oxygen Concentration - - Weight 80.3 kg (177 lb 1.6 oz) 12/20/2018 1:15 PM EDT Height 175.3 cm (5' 9") 12/20/2018 1:15 PM EDT Body Mass Index 26.15 12/20/2018 1:15 PM EDT documented in this encounter Patient Instructions Patient InstructionsFay Tilley MD - 12/20/2018 1:20 PM EDT1. Follow low fat diet 2. Take Pravachol 40 mg once a day 3. Schedule fasting blood tests in 3 months 4. Increase Cymbalta to 40 mg ( 2 tablets of 20 mg) 5. Increase Trazodone to 100 mg ( 2 tablets of 50 mg) at the bed time 6. Follow up in 3 weeks and as needed Low Fat Diet WHAT YOU NEED TO KNOW: A low-fat diet is an eating plan that is low in total fat, unhealthy fat, and cholesterol. You may need to follow a low-fat diet if you have trouble digesting or absorbing fat. You may also need to follow this diet if you have high cholesterol. You can also lower your cholesterol by increasing the amount of fiber in your diet. Soluble fiber is a type of fiber that helps to decrease cholesterol levels. DISCHARGE INSTRUCTIONS: Different types of fat in food: Unhealthy fats: A diet that is high in cholesterol, saturated fat, and trans fat may cause unhealthy cholesterol levels. Unhealthy cholesterol levels increase your risk of heart disease. Cholesterol: Limit intake of cholesterol to less than 200 mg per day. Cholesterol is found in meat, eggs, and dairy. Saturated fat: Limit saturated fat to less than 7% of your total daily calories. Ask your dietitian how many calories you need each day. Saturated fat is found in butter, cheese, ice cream, wholemilk, and palm oil. Saturated fat is also found in meat, such as beef, pork, chicken skin, sausage, hot dogs, and bologna. Trans fat: Avoid trans fat as much as possible. Foods that say trans fat free on the label maystill have up to 0.5 grams of fat per serving. Trans fat is used in fried and baked foods. Healthy fats: Unsaturated fat can help to improve your cholesterol levels. Replace foods that are high in saturated and trans fat with foods that are high in the following kinds of fats: Monounsaturated fats: These are found in avocados, nuts, and vegetable oils, such as olive, canola, and sunflower oil. Polyunsaturated fats: These can be found in vegetable oils, such as soybean or corn oil. [place]-3 fats can help to decrease the risk of heart disease. [place]-3 fats are found in fish, such as salmon, mcgrath, trout, and tuna. [place]-3 fats can also be found in plant foods, such as walnuts, flaxseed, soybeans, and canola oil. Foods to limit or avoid: Grains: High-fat baked goods, such as biscuits, croissants, doughnuts, pies, cookies, and pastries Snacks that are made with partially hydrogenated oils, such as chips, regular crackers, and butter-flavored popcorn Dairy: Whole milk, 2% milk, and yogurt and ice cream made with whole milk Half and half creamer, heavy cream, and whipping cream Cheese, cream cheese, and sour cream Fruits and vegetables: Fried vegetables or vegetables in butter or high-fat sauces, such as cream or cheese sauces Fried fruit or fruit served with butter or cream Meats and eggs: High-fat cuts of meat (T-bone steak, regular hamburger, and ribs) Fried meat, poultry (turkey and chicken), and fish Poultry with skin Cold cuts (salami or bologna), hot dogs, armijo, and sausage Whole eggs and egg yolks Fats: Butter, stick margarine, and shortening Coconut, palm oil, and palm kernel oil Foods to include: Grains: Whole-grain bread, cereal, pasta, and brown rice Low-fat crackers and pretzels Dairy: Nonfat (skim) or 1% milk Nonfat or low-fat cheese, yogurt, and cottage cheese Fruits and vegetables: Fresh, frozen, or canned vegetables (no salt or low-sodium) Fresh, frozen, dried, or canned fruit (canned in light syrup or fruit juice ) Meats and protein foods: Chicken or turkey with no skin Fish Lean beef and pork (loin, round, extra lean hamburger) Beans and peas, unsalted nuts, soy products Egg whites and substitutes Fats: Unsaturated oil, such as canola, olive, peanut, soybean, or sunflower oil Soft or liquid margarine and vegetable oil spread Salad dressing Avocado Seeds and nuts Other ways to decrease fat: Read food labels before you buy foods. Choose foods that have less than 30 % of calories from fat. Choose low-fat or fat free dairy products. Remember that fat free does not mean calorie free. These foods still contain calories, and too many calories can lead to weight gain. Trim fat from meat and avoid fried food. Trim all visible fat from meat before you cook it. Remove the skin from poultry. Do not pierson meat, fish, or poultry. Bake, roast, boil, or broil these foods instead. Avoid fried foods. Eat a baked potato instead of Iraqi fries. Steam vegetables instead ofsaut ing them in butter. Add less fat to foods. Use imitation armijo bits on salads and baked potatoes instead of regular armijo bits. Use low-fat or nonfat butter-flavored topping instead of regular butter or margarine onpopcorn and other foods. Ways to decrease fat in recipes: Replace high-fat ingredients with low-fat or nonfat ones. This maycause baked goods to be merchandise buyer than usual. You may need to use nonfat cooking spray on pans to prevent food from sticking. You also may need to change the amount of other ingredients, such as water, in the recipe. Try the following: Use low-fat or light margarine instead of margarine or shortening. Use lean ground turkey breast or chicken, or lean ground beef (less than 5 % fat) instead of hamburger. Add 1 teaspoon of canola oil to 8 ounces of skim milk instead of using cream or half and half. Use grated zucchini, carrots, or apples in breads instead of coconut. Use blenderized, low-fat cottage cheese, plain tofu, or low-fat ricotta cheese instead of creamcheese. Use 1 egg white and 1 teaspoon of canola oil, or use cup (2 ounces) of fat free egg substitute instead of a whole egg. Replace half of the oil that is called for in a recipe with applesauce when you bake. Use 3 tablespoons of cocoa powder and 1 tablespoon of canola oil instead of a square of baking chocolate. How to increase fiber: Eat enough high-fiber foods to get 20 to 35 grams of fiber every day. Slowlyincrease your fiber intake to avoid stomach cramps, gas, and other problems. Eat 3 ounces of whole-grain foods each day. An ounce is about 1 slice of bread. Eat whole-grainbreads like whole-wheat bread. Whole wheat, whole-wheat flour, or other whole grains should be listed as the first ingredient on the food label. Replace white flour with whole-grain flour or use half of each in recipes. Whole-grain flour is heavier than white flour, so you may have to add more yeast or baking powder. Eat a high-fiber cereal for breakfast. Oatmeal is a good source of soluble fiber. Look for cereals that have bran or fiber in the name. Choose whole-grain products like brown rice, barley, and whole wheat pasta. Eat more beans, peas, and lentils. For example, add beans to soups or salads. Eat at least 5 cups of fruits and vegetables each day. Eat fruits and vegetables with the peel because the peel is high in fiber. Risks of not following a low-fat diet: You may develop heart disease if you have high cholesterol and do not follow a low-fat diet. Heart disease may lead to a heart attack or stroke. If you have trouble digesting or absorbing fat and you do not follow this diet, you may continue to have side effects. These side effects include diarrhea, bloating, and cramping. 2015 [employer]. Information is for End User's use only and may not be sold, redistributed or otherwise used for commercial purposes. All illustrations and images included in CareNotes are the copyrighted property of [employer], [employer]. or [employer]. The above information is an research aide only. It is not intended as medical advice for individual conditions or treatments. Talk to your doctor, nurse or pharmacist before following any medical regimen to see if it is safe and effective for you. documented in this encounter Progress Notes Fay Tilley MD - 12/20/2018 1:20 PM EDT PATIENT: Santino [place] : 1960 DATE OF SERVICE: 12/20/2018 Patient comes follow up anxiety, insomnia Minimal improvement on Cymbalta and Trazodone Tolerates medications well Also had blood tests done for Hyperlipidemia Was not able to tolerate Lipitor in the past due to upset stomach BP is much better today Past Medical History: Diagnosis Date Cardiomyopathy (HCC) 06/08/2015 DVT, recurrent, lower extremity, chronic, unspecified laterality (HCC) Eczema Essential hypertension 05/12/2015 Hyperlipidemia Left hand fracture 2006 ORIF 4 th finger, still has hardwear in PVC's (premature ventricular contractions) Outpatient Medications as of 12/20/2018 Medication Sig Dispense Refill albuterol HFA (VENTOLIN) 108 (90 Base) MCG/ACT Inhalation Aero Soln Take 2 Puffs by inhalation EVERY FOUR HOURS NEEDED (wheezing). 1 Inhaler 1 ALPRAZolam (XANAX) 0.25 MG Oral Tab TAKE 1 TABLET BY MOUTH EVERY DAY NEEDED FOR ANXIETY - MAXIMUM DAILY DOSE OF 1 PER DAY 20 Tab 0 amLodipine (NORVASC) 2.5 MG Oral Tab TAKE 1 TABLET BY MOUTH EVERY DAY 30 Tab 5 apixaban (ELIQUIS) 5 MG Oral Tab Take 1 Tab by mouth TWICE DAILY. 60 Tab 2 Aug Betamethasone Dipropionate (DIPROLENE) 0.05 % Apply externally Lotion 1 Appl by Apply externally route TWICE DAILY. 1 Bottle 1 carvedilol (COREG) 12.5 MG Oral Tab Take 1 Tab by mouth TWICE DAILY. 60 Tab 5 metroNIDAZOLE (METROCREAM) 0.75 % Apply externally Cream 75 Tubes by Topical route TWICE DAILY. Omeprazole 40 MG Oral CAPSULE DELAYED RELEASE Take 1 Cap by mouth DAILY. (Patient taking differently: Take 40 mg by mouth DAILY NEEDED.) 30 Cap 5 potassium citrate (UROCIT-K) 10 MEQ (1080 MG) Oral Tab CR 20 meq PO QD 0 No current facility-administered medications on file as of 12/20/2018. BP 118/70 (BP Location: Left arm, Patient Position: Sitting) | Pulse 65 | Temp 98.2 F (36.8 C) | Ht 5' 9" (1.753 m) | Wt 177 lb 1.6 oz (80.3 kg ) | SpO2 96% | BMI 26.15 kg/m General appearance: alert, well appearing, and in no distress. Mental Status: alert, oriented to person, place, and time, normal mood, behavior , speech, dress, motor activity, and thought processes. CMP - elevated sugar, FLP - high TC, LDL Component Latest Ref Rng & Units 12/12/2018 12/12/2018 9:14 AM 9:14 AM Sodium 134 - 145 mmol/L 137 Potassium 3.5 - 5.1 mmol/L 4.2 Chloride 98 - 107 mmol/L 102 CO2 22 - 30 mmol/L 23 Calcium 8.3 - 10.1 mg/dl 10.0 Albumin 3.5 - 5.0 g/dl 4.6 BUN 9 - 20 mg/dl 9 Creatinine 0.8 - 1.5 mg/dl 1.0 Glucose (Lab) 70 - 99 mg/dl 112 (H) Protein,Total 6.3 - 8.2 g/dl 7.9 Total Bilirubin 0.0 - 1.1 MG/DL 0.9 AST 17 - 59 U/L 50 ALT 21 - 72 U/L 24 ALKALINE PHOSPHATASE 40 - 150 U/L 70 eGFR See Interpretation Below ml/min/1.73ml Sq >60 BUN/Creatinine Ratio 6 - 22 RATIO 9 Anion Gap 3 - 11 mmol/L 12 (H) A/G Ratio 0.8 - 2.0 ratio 1.4 Cholestrol <200 mg/dl 306 (H) HDL >40 mg/dl 98 Triglycerides <150 mg/dl 61 LDL Cholesterol <100 MG/DL 196 (H) Cholesterol / HDL Ratio RATIO 3.1 LDL / HDL Ratio 2.0 Non-HDL Cholesterol 0 - 130 MG/DL 208 (H) The nature of cardiac risk has been fully discussed with this patient. I have made him aware of his LDL target goal given his cardiovascular risk analysis. I have discussed the appropriate diet. The need for lifelong compliance in order to reduce risk is stressed. A regular exercise program is recommended to help achieve and maintain normal body weight, fitness and improve lipid balance. A written copy of a low fat, low cholesterol diet has been given to the patient. ICD-9-CM ICD-10-CM 1. Anxiety 300.00 F41.9 2. Dyslipidemia 272.4 E78.5 3. Insomnia, unspecified type 780.52 G47.00 4. Elevated blood sugar 790.29 R73.9 Patient Instructions 1. Follow low fat diet 2. Take Pravachol 40 mg once a day 3. Schedule fasting blood tests in 3 months 4. Increase Cymbalta to 40 mg ( 2 tablets of 20 mg) 5. Increase Trazodone to 100 mg ( 2 tablets of 50 mg) at the bed time 6. Follow up in 3 weeks and as needed Low Fat Diet WHAT YOU NEED TO KNOW: A low-fat diet is an eating plan that is low in total fat, unhealthy fat, and cholesterol. You may need to follow a low-fat diet if you have trouble digesting or absorbing fat. You may also need to follow this diet if you have high cholesterol. You can also lower your cholesterol by increasing the amount of fiber in your diet. Soluble fiber is a type of fiber that helps to decrease cholesterol levels. DISCHARGE INSTRUCTIONS: Different types of fat in food: Unhealthy fats: A diet that is high in cholesterol, saturated fat, and trans fat may cause unhealthy cholesterol levels. Unhealthy cholesterol levels increase your risk of heart disease. Cholesterol: Limit intake of cholesterol to less than 200 mg per day. Cholesterol is found in meat, eggs, and dairy. Saturated fat: Limit saturated fat to less than 7% of your total daily calories. Ask your dietitian how many calories you need each day. Saturated fat is found in butter, cheese, ice cream, wholemilk, and palm oil. Saturated fat is also found in meat, such as beef, pork, chicken skin, sausage, hot dogs, and bologna. Trans fat: Avoid trans fat as much as possible. Foods that say trans fat free on the label maystill have up to 0.5 grams of fat per serving. Trans fat is used in fried and baked foods. Healthy fats: Unsaturated fat can help to improve your cholesterol levels. Replace foods that are high in saturated and trans fat with foods that are high in the following kinds of fats: Monounsaturated fats: These are found in avocados, nuts, and vegetable oils, such as olive, canola, and sunflower oil. Polyunsaturated fats: These can be found in vegetable oils, such as soybean or corn oil. [place]-3 fats can help to decrease the risk of heart disease. [place]-3 fats are found in fish, such as salmon, mcgrath, trout, and tuna. [place]-3 fats can also be found in plant foods, such as walnuts, flaxseed, soybeans, and canola oil. Foods to limit or avoid: Grains: High-fat baked goods, such as biscuits, croissants, doughnuts, pies, cookies, and pastries Snacks that are made with partially hydrogenated oils, such as chips, regular crackers, and butter-flavored popcorn Dairy: Whole milk, 2% milk, and yogurt and ice cream made with whole milk Half and half creamer, heavy cream, and whipping cream Cheese, cream cheese, and sour cream Fruits and vegetables: Fried vegetables or vegetables in butter or high-fat sauces, such as cream or cheese sauces Fried fruit or fruit served with butter or cream Meats and eggs: High-fat cuts of meat (T-bone steak, regular hamburger, and ribs) Fried meat, poultry (turkey and chicken), and fish Poultry with skin Cold cuts (salami or bologna), hot dogs, armijo, and sausage Whole eggs and egg yolks Fats: Butter, stick margarine, and shortening Coconut, palm oil, and palm kernel oil Foods to include: Grains: Whole-grain bread, cereal, pasta, and brown rice Low-fat crackers and pretzels Dairy: Nonfat (skim) or 1% milk Nonfat or low-fat cheese, yogurt, and cottage cheese Fruits and vegetables: Fresh, frozen, or canned vegetables (no salt or low-sodium) Fresh, frozen, dried, or canned fruit (canned in light syrup or fruit juice ) Meats and protein foods: Chicken or turkey with no skin Fish Lean beef and pork (loin, round, extra lean hamburger) Beans and peas, unsalted nuts, soy products Egg whites and substitutes Fats: Unsaturated oil, such as canola, olive, peanut, soybean, or sunflower oil Soft or liquid margarine and vegetable oil spread Salad dressing Avocado Seeds and nuts Other ways to decrease fat: Read food labels before you buy foods. Choose foods that have less than 30 % of calories from fat. Choose low-fat or fat free dairy products. Remember that fat free does not mean calorie free. These foods still contain calories, and too many calories can lead to weight gain. Trim fat from meat and avoid fried food. Trim all visible fat from meat before you cook it. Remove the skin from poultry. Do not pierson meat, fish, or poultry. Bake, roast, boil, or broil these foods instead. Avoid fried foods. Eat a baked potato instead of Iraqi fries. Steam vegetables instead ofsaut ing them in butter. Add less fat to foods. Use imitation armijo bits on salads and baked potatoes instead of regular armijo bits. Use low-fat or nonfat butter-flavored topping instead of regular butter or margarine onpopcorn and other foods. Ways to decrease fat in recipes: Replace high-fat ingredients with low-fat or nonfat ones. This maycause baked goods to be merchandise buyer than usual. You may need to use nonfat cooking spray on pans to prevent food from sticking. You also may need to change the amount of other ingredients, such as water, in the recipe. Try the following: Use low-fat or light margarine instead of margarine or shortening. Use lean ground turkey breast or chicken, or lean ground beef (less than 5 % fat) instead of hamburger. Add 1 teaspoon of canola oil to 8 ounces of skim milk instead of using cream or half and half. Use grated zucchini, carrots, or apples in breads instead of coconut. Use blenderized, low-fat cottage cheese, plain tofu, or low-fat ricotta cheese instead of creamcheese. Use 1 egg white and 1 teaspoon of canola oil, or use cup (2 ounces) of fat free egg substitute instead of a whole egg. Replace half of the oil that is called for in a recipe with applesauce when you bake. Use 3 tablespoons of cocoa powder and 1 tablespoon of canola oil instead of a square of baking chocolate. How to increase fiber: Eat enough high-fiber foods to get 20 to 35 grams of fiber every day. Slowlyincrease your fiber intake to avoid stomach cramps, gas, and other problems. Eat 3 ounces of whole-grain foods each day. An ounce is about 1 slice of bread. Eat whole-grainbreads like whole-wheat bread. Whole wheat, whole-wheat flour, or other whole grains should be listed as the first ingredient on the food label. Replace white flour with whole-grain flour or use half of each in recipes. Whole-grain flour is heavier than white flour, so you may have to add more yeast or baking powder. Eat a high-fiber cereal for breakfast. Oatmeal is a good source of soluble fiber. Look for cereals that have bran or fiber in the name. Choose whole-grain products like brown rice, barley, and whole wheat pasta. Eat more beans, peas, and lentils. For example, add beans to soups or salads. Eat at least 5 cups of fruits and vegetables each day. Eat fruits and vegetables with the peel because the peel is high in fiber. Risks of not following a low-fat diet: You may develop heart disease if you have high cholesterol and do not follow a low-fat diet. Heart disease may lead to a heart attack or stroke. If you have trouble digesting or absorbing fat and you do not follow this diet, you may continue to have side effects. These side effects include diarrhea, bloating, and cramping. 2016 [employer]. Information is for End User's use only and may not be sold, redistributed or otherwise used for commercial purposes. All illustrations and images included in CareNotes are the copyrighted property of [employer] or [employer]. The above information is an research aide only. It is not intended as medical advice for individual conditions or treatments. Talk to your doctor, nurse or pharmacist before following any medical regimen to see if it is safe and effective for you. Author: Fay Tilley MD 12/20/2018 13:35 documented in this encounter Plan of Treatment Date Type Specialty Care Team Description 01/11/2019 Office Visit Family Practice Fay Tilley MD [address] [place] [address] [phone] 03/20/2019 Lab Internal Medicine 06/28/2019 Office Visit [facility] [place] [facility] [address] [facility] [place] [address] Health Maintenance Due Date Last Done Comments COLONOSCOPY SCREENING 11/26/2009 ZOSTER IMMUNIZATION SERIES 11/26/2009 (1 of 2) DEPRESSION SCREENING 08/30/2019 08/29/2018 DIABETES SCREENING 12/13/2019 12/12/2018, 09/26/2018, 06/06/2018, Additional history exists LIPID DISORDER SCREENING 12/13/2019 12/12/2018, 05/12/2017, 06/09/2015 HPV IMMUNIZATION SERIES Aged Out No longer eligible based on patient's age to complete this topic MENINGOCOCCAL VACCINE IMM Aged Out No longer eligible based on patient's age to complete this topic PNEUMOCOCCAL 0-64 YRS Aged Out No longer eligible based on patient's age to complete this topic documented as of this encounter Goals Goal Patient Goal Associated Recent Patient-Stated? Author Type Problems Progress Blood Pressure Blood Pressure Essential 118/70 No Jarek, < 140/90 hypertension (12/20/2018 Fay, 1:15 PM EDT) Note: Hypertension Care Plan Based on the patient's clinical history and according to JNC 8 guidelines target blood pressure goal is less than 140/90. Based on the patient's last blood pressure of BP: (!) 178/102 mmHg the patient is at above goal. As your provider, it is important that I advise you regarding: your current medications and help you with any challenges you may face taking your medications as directed (ex. instructions, cost, side effects, and interactions). Important lifestyle changes: weight reduction and dietary sodium reduction your clinical goals and how you can achieve success: weight reduction and exercise plan medication management: adjusted medications as appropriate patient education/self-management tools provided: No To successfully manage my Hypertension I will: monitor my blood pressure daily, understanding that my goal is less than 140/ 90 per my healthcare provider's recommendation. I will schedule an appointment with my provider if consistent abnormal readings greater than 160/100. take medications every day as prescribed by my healthcare provider and if unable to take them I will discuss with my provider. monitor for symptoms of chest pain, chest tightness/pressure, irregular heartbeat, persistent dizziness, radiating arm pain, and neck or jaw pain. If any of these symptoms are noticed I will seek medical attention immediately by calling 911 exercise/walk 30 minutes 5 day(s) per week. If I experience chest pain, chest tightness, or shortness of breath, I will seek medical attention immediately. follow a diet rich in fruits, vegetables, and low-fat dairy products with reduced content of saturated & total fat. I will reduce my sodium intake daily. An example is the DASH diet. To obtain more information please refer to the DASH Eating Plan listed in Educational Resources. record my blood pressure results. [employer] is safe and secure way for you to do this in your medical record online. try to obtain an ideal body weight. My recent weight was Weight: 178 lb ( 80.74 kg). My weight loss goal for my next office visit is 170. limit alcohol consumption. For men two drinks per day and women one drink per day. if currently smoking, will discuss how to quit smoking with my healthcare provider and work towards quitting. Educational Resources: National Heart, Lung, & Blood [place] http://nhlbi.nih.gov/hbp/index.html The DASH Diet Eating Plan http://www.nhlbi.nih.gov/health/health-topics/ topics/dash/ Academy of Nutrition & DIetetics http://eatright.org National Smoking Cessation Site http://smokefree.gov Blood Pressure < Blood Pressure 118/70 (12/20/2018 1:15 No Angela Yeh FNP 140/90 PM EDT) Note: This is an individualized treatment (blood pressure) goal for Santino North: Displayed above (on the left) is your goal for blood pressure control. Your most recent blood pressure is also shown above, on the right. You should try to achieve blood pressures that are lower than your goal listed above (on the left). Take all prescribed medications as Self-management No Angela Yeh FNP directed Note: This is an individualized self-management goal for Santino North: Please take all prescribed medications as directed. 1. Do not skip doses. If you cannot afford your medications, talk with your doctor. 2. Use a pill reminder system such as a pill box if needed. Your pharmacist can help you with this. 3. Contact your Pharmacy 5 days before your medication runs out. If you cannot take your medications for any reasons, talk with your doctor. 4. Please bring all of your medication bottles and inhalers (or a list of all your medications/inhalers) with you to every visit. Potential barriers to meeting all of your care plan goals will continue to be addressed on an ongoing basis. documented as of this encounter Results Not on filedocumented in this encounter Visit Diagnoses Diagnosis Anxiety - Primary Anxiety state, unspecified Dyslipidemia Other and unspecified hyperlipidemia Insomnia, unspecified type Elevated blood sugar Other abnormal glucose documented in this encounter documented as of this encounter
--- OUTSIDE RECORDS SUMMARY | 2019-01-14 18:20 | XMS REPORT | Summary of Care ---
:1960 Author Organization [facility] Address [address] [place] [address] Care Team Providers Name Role Phone Fay Tilley MD Primary Care Provider Reason for Visit Reason Comments Follow Up 3 mths, not sleeping , wants his belly buttom looked at, pt stated has been very stressed out and with a ton of anxiety stated xanax isnt working Encounter Details Date Type Department Care Team Description 12/05/2018 Office Visit [facility] Tilley (Primary Dx); Practice MD Fay Insomnia, unspecified type; [address] Umbilical hernia without obstruction [place] [address] [place] [address] [phone] Allergies Active Allergy Reactions Severity Noted Date Comments Banana Other 05/05/2015 Swelling lips Shell Fish Swelling High 05/05/2015 Keflex Rash 05/05/2015 Atorvastatin GI Reaction 06/12/2017 nausea Shellfish Allergy Respiratory Reaction High 05/05/2015 documented as of this encounter (statuses as of 12/05/2018) Medications Medication Sig Dispensed Refills Start Date End Date Status carvedilol (COREG) 12.5 TAKE 1 TABLET BY 60 Tab 5 10/27/2017 Active MG Oral Tab MOUTH TWO TIMES DAILY Omeprazole 40 MG Oral Take 1 Cap [...] apixaban (ELIQUIS) 5 Take 1 Tab by mouth 60 Tab 2 09/05/2018 Active MG Oral Tab TWICE DAILY. metroNIDAZOLE 75 Tubes by Topical 0 Active (METROCREAM) 0.75 % route TWICE DAILY. Apply externally Cream Aug Betamethasone 1 Appl by Apply [...] MAXIMUM DAILY DOSE OF 1 PER DAY amLodipine (NORVASC) Take 1 Tab by mouth 30 Tab 0 03/21/2018 12/06/19 Discontinued 2.5 MG Oral DAILY. 19 TabIndications: Essential hypertension documented as of this encounter (statuses as of 12/05/2018) Active Problems Problem Noted Date DVT, recurrent, lower extremity, chronic, unspecified laterality 01/22/2018 Anxiety 05/12/2015 Essential hypertension 05/12/2015 Psoriasis 05/12/2015 documented as of this encounter (statuses as of 12/05/2018) Resolved Problems Problem Noted Date Resolved Date Cardiomyopathy 06/08/2015 01/22/2018 documented as of this encounter (statuses as of 12/05/2018) Social History Tobacco Use Types Packs/Day Years [...] Sign Reading Time Taken Comments Blood Pressure 160/100 12/05/2018 11:38 AM EDT Pulse 88 12/05/2018 11:38 AM EDT Temperature 37.2 12/05/2018 11:38 AM EDT C (99 F) Respiratory Rate - - Oxygen Saturation 94% 12/05/2018 11:38 AM EDT Inhaled Oxygen Concentration - - Weight 78.1 kg (172 lb 3.2 oz) 12/05/2018 11:38 AM EDT Height 175.3 cm (5' 9") 12/05/2018 11:38 AM EDT Body Mass Index 25.43 12/05/2018 11:38 AM EDT documented in this encounter Patient Instructions Patient InstructionsFay Tilley MD - 12/05/2018 11:40 AM EDT1. Take Cymbalta 20 mg once a day Drugs of the SSRI class can have side effects such as weight gain, sexual dysfunction, insomnia, headache, nausea. These medications are generally effective at alleviating symptoms of anxiety and/or depression. Let me know if significant side effects do occur. 2. Take Trazodone 50 mg at the bed time 3. Schedule fasting blood test 4. Follow up in 2 weeks and as needed documented in this encounter Progress Notes Fay Tilley MD - 12/05/2018 11:40 AM EDT PATIENT: Santino North : 1960 DATE OF SERVICE: 12/05/2018 Subjective SUBECTIVE: Santino North is a 58-y.o. male who presents for follow up of anxiety disorder. He has the following anxiety symptoms: insomnia, feelings of losing control, difficulty concentrating. Onset of symptoms was approximately several weeks ago, gradually worsening since that time. Previous treatment includes Sertraline Hydrochloride/ Zoloft He complains of the following side effects from the treatment: altered libido, impotence. Also concerned about bulging in the umbilical area Past Medical History: Diagnosis Date Cardiomyopathy (HCC) 06/08/2015 DVT, recurrent, lower extremity, chronic, unspecified laterality (HCC) Eczema Essential hypertension 05/12/2015 Hyperlipidemia Left hand fracture 2006 ORIF 4 th finger, still has hardwear in PVC's (premature ventricular contractions) Family History Problem Relation Age of Onset Heart Disease Mother [place] Hypertension Mother Emphysema Father Heart Disease Father Prostate Cancer Father at the age of 65 Kidney Disease Sister Heart Disease Brother CABG Emphysema Sister Current Outpatient Medications Medication Sig albuterol HFA (VENTOLIN) 108 (90 Base) MCG/ACT Inhalation Aero Soln Take 2 Puffs by inhalation EVERY FOUR HOURS NEEDED (wheezing). ALPRAZolam (XANAX) 0.25 MG Oral Tab TAKE 1 TABLET BY MOUTH EVERY DAY NEEDED FOR ANXIETY - MAXIMUM DAILY DOSE OF 1 PER DAY amLodipine (NORVASC) 2.5 MG Oral Tab TAKE 1 TABLET BY MOUTH EVERY DAY apixaban (ELIQUIS) 5 MG Oral Tab Take 1 Tab by mouth TWICE DAILY. Aug Betamethasone Dipropionate (DIPROLENE) 0.05 % Apply externally Lotion 1 Appl by Apply externally route TWICE DAILY. carvedilol (COREG) 12.5 MG Oral Tab TAKE 1 TABLET BY MOUTH TWO TIMES DAILY metroNIDAZOLE (METROCREAM) 0.75 % Apply externally Cream 75 Tubes by Topical route TWICE DAILY. Omeprazole 40 MG Oral CAPSULE DELAYED RELEASE Take 1 Cap by mouth DAILY. (Patient taking differently: Take 40 mg by mouth DAILY NEEDED.) potassium citrate (UROCIT-K) 10 MEQ (1080 MG) Oral Tab CR 20 meq PO QD No current facility-administered medications for this visit. Allergies Allergen Reactions Iodine [Shell Fish] Swelling Shellfish Allergy Respiratory Reaction Banana Other Swelling lips Keflex Rash Lipitor [Atorvastatin] GI Reaction nausea Social History Socioeconomic History Marital status: Spouse name: Not on file Number of children: Not on file Years of education: Not on file Highest education level: Not on file Occupational History Not on file Social Needs Financial resource strain: Not on file Food insecurity: Worry: Not on file Inability: Not on file Transportation needs: Medical: Not on file Non-medical: Not on file Tobacco Use Smoking status: Never Smoker Smokeless tobacco: Never Used Substance and Sexual Activity Alcohol use: Yes Alcohol/week: 0.0 standard drinks Comment: occasional Drug use: No Sexual activity: Not on file Lifestyle Physical activity: Days per week: Not on file Minutes per session: Not on file Stress: Not on file Relationships Social connections: Talks on phone: Not on file Gets together: Not on file Attends sabianism service: Not on file Active member of club or organization: Not on file Attends meetings of clubs or organizations: Not on file Relationship status: Not on file Intimate partner violence: Fear of current or ex partner: Not on file Emotionally abused: Not on file Physically abused: Not on file Forced sexual activity: Not on file Other Topics Concern Back Care Not Asked Bike Helmet Not Asked Blood Transfusions Not Asked Caffeine Concern Not Asked Exercise Not Asked Hobby Hazards Not Asked International Travel Not Asked Service Not Asked Occupational Exposure Not Asked Seat Belt Not Asked Self-Exams Not Asked Sleep Concern Not Asked Special Diet Not Asked Stress Concern Not Asked Weight Concern Not Asked Social History Narrative Not on file REVIEW OF SYSTEMS: All remaining review of systems was negative. Objective OBJECTIVE: BP (!) 160/100 (BP Location: Left arm, Patient Position: Sitting) | Pulse 88 | Temp 99 F (37.2C) | Ht 5' 9" (1.753 m) | Wt 172 lb 3.2 oz (78.1 kg) | SpO2 94% | BMI 25.43 kg/m GENERAL: Alert, very anxious. Abdominal exam: soft, nontender, nondistended, no masses or organomegaly. Small reducible umbilicalehernia Mental Status: alert, oriented to person, place, and time, normal speech, dress , motor activity, and thought processes, affect appropriate to mood, anxious. ICD-9-CM ICD-10-CM 1. Anxiety 300.00 F41.9 2. Insomnia, unspecified type 780.52 G47.00 3. Umbilical hernia without obstruction and without gangrene Patient explained condition 553.1 K42.9 Patient Instructions 1. Take Cymbalta 20 mg once a day Drugs of the SSRI class can have side effects such as weight gain, sexual dysfunction, insomnia, headache, nausea. These medications are generally effective at alleviating symptoms of anxiety and/or depression. Let me know if significant side effects do occur. 2. Take Trazodone 50 mg at the bed time 3. Schedule fasting blood test 4. Follow up in 2 weeks and as needed Author: Fay Tilley MD 12/05/2018 12:24 documented in this encounter Plan of Treatment Date Type Specialty Care Team Description 12/12/2018 Lab Internal Medicine 12/20/2018 Office Visit Family Practice Fay Tilley MD [address] [place] [address] [phone] 06/28/2019 Office Visit Dermatology Colleen Maxwell MD [address] [facility] [place] [address] Health Maintenance Due Date Last Done Comments COLONOSCOPY SCREENING 11/26/2009 ZOSTER IMMUNIZATION SERIES 11/26/2009 (1 of 2) LIPID DISORDER SCREENING 05/12/2018 05/12/2017, 06/09/2015 DEPRESSION SCREENING 08/30/2019 08/29/2018 DIABETES SCREENING 09/27/2019 09/26/2018, 06/06/2018, 04/20/2018, Additional history exists HPV IMMUNIZATION SERIES Aged Out No longer [...] Problems Progress Blood Pressure Blood Pressure Essential 160/100 No Jarek, < 140/90 hypertension (12/05/2018 Fay, 11:38 AM EDT) Note: Hypertension Care Plan Based on [...] Educational Resources. record my blood pressure results. [employer] is safe and secure way for you [...] Educational Resources: National Heart, Lung, & Blood [place] http://nhlbi.nih.gov/hbp/index.html The DASH Diet Eating Plan http://www.nhlbi.nih.gov/health/health-topics/ topics/dash/ Academy of Nutrition & DIetetics http://eatright.org National Smoking Cessation Site http://smokefree.gov Blood Pressure < Blood Pressure 160/100 (12/05/2018 Angela Hernandez FNP 140/90 11:38 AM EDT) Note: This is an individualized treatment (blood pressure) goal for Santino North: Displayed above (on the left) is your goal for blood pressure control. Your most recent blood pressure is also shown above, on the right. You should try to achieve blood pressures that are lower than your goal listed above (on the left). Take all prescribed medications as Self-management Angela Hernandez FNP directed Note: This is an individualized [...] Diagnosis Anxiety - Primary Anxiety state, unspecified Insomnia, unspecified type Umbilical hernia without obstruction and without gangrene documented in this encounter documented as of this encounter
[2019-01-14 19:10] LABS: ABS Basophils 0.1 10^3/ul (0-0.2); ABS Eosinophils 0.4 10^3/ul (0-0.6); ABS Lymphocytes 1.7 10^3/ul (1.0-4.8); ABS Monocytes 0.8 10^3/ul (0-0.8); ABS Neutrophils 3.8 10^3/ul (1.5-7.7); Eosinophil % 6.5 %; Hematocrit 47 % (42-52); Hemoglobin 16.3 g/dL (14.0-18.0); Lymphocyte % 25.1 %; Mean Corpuscular HGB Conc 35 g/dL (31-36); Mean Corpuscular Hemoglobin 35 pg (27-31); Mean Corpuscular Volume 100 fL (80-94); Mean Platelet Volume 6.4 fL (7.4-10.4); Nucleated Red Blood Cells % 0.1; Platelet Count 234 10^3/uL (150-450); Red Blood Count 4.65 10^6 /uL (4.18-5.48); Red Cell Distribution Width 14 % (10-15); White Blood Count 6.7 10^3/uL (3.5-10.8)
[2019-01-14 19:20] LABS: Activated Partial Thrombo Time 32.5 seconds (26.0-38.0); INR 0.99 (0.82-1.09)
[2019-01-14 19:31] LABS: Albumin 4.8 g/dL (3.2-5.2); Albumin/Globulin Ratio 1.7 (1-3); BUN/Creatinine Ratio 15.8 (8-20); C Reactive Protein 3.07 mg/L (<8.01); Calcium 9.2 mg/dL (8.6-10.3); EGFR African American 98.2 (>60); EGFR Non-African American 81.1 (>60); Globulin 2.8 g/dL (2-4); Magnesium 1.9 mg/dL (1.9-2.7); Potassium 3.8 mmol/L (3.5-5.0); Total Bilirubin 0.7 mg/dL (0.2-1.0); Total Protein 7.6 g/dL (6.4-8.9)
[2019-01-14 19:32] LABS: Troponin I 0.01 ng/mL (<0.04)
[2019-01-14 19:51] LABS: TSH (Thyroid Stimulating Horm) 1.19 mcIU/mL (0.34-5.60)
[2019-01-14 20:13] VITALS: BP 130/109
== END 2019-01-14 20:11 | disposition home or self-care (01) ==
LOC: ED 17:46
DX: F10.929 Alcohol use, unspecified with intoxication, unspecified (principal); E78.00 Pure hypercholesterolemia, unspecified; F41.9 Anxiety disorder, unspecified; I12.9 Hypertensive chronic kidney disease with stage 1 through stage 4 chronic kidney disease, or unspecified chronic kidney disease; N18.9 Chronic kidney disease, unspecified; Z86.711 Personal history of pulmonary embolism; Z79.01 Long term (current) use of anticoagulants; Z88.1 Allergy status to other antibiotic agents; Z91.041 Radiographic dye allergy status; G93.89 Other specified disorders of brain
CPT/HCPCS: 36415; 70450; 71045; 80053; 80320; 82550; 83605; 83735; 83880; 84443; 84484; 85025; 85610; 85730; 86140; 93005; 99282; G0480

== ENCOUNTER 2019-04-12 10:29 | Emergency (ER) | payer OTHER ==
--- NOTE | 2019-04-12 10:57 | ED ---
Skin Complaint - HPI Summary HPI Summary: 58 year old male presents with worsening rash for the past couple weeks. He states has a history of ezcema but it has not been this bad in a while. he has a history of cellulitis. also history of dvt and currently on eliquis. He denies any fevers or chills. He does have a rehab specialist. He has been placing steroid area but has not been helping. denies any chest pain or SOB. admits to swelling of area. states rash has been present on bilateral feet for years. he states that steroids sometimes help with the rash. - History of Current Complaint Chief Complaint: EDExtremityLower Time Seen by Provider: 04/12/19 10:36 Stated Complaint: WOUNDS ON FEET Pain Intensity: 7 - Additional Pertinent History Primary Care Physician: EDUIN - Allergy/Home Medications Allergies/Adverse Reactions: Allergies Allergy/AdvReac Type Severity Reaction Status Date / Time cephalexin [From Keflex] Allergy Rash Verified 04/12/19 10:34 egg Allergy Vomiting Verified 04/12/19 10:34 iodine Allergy Rash Verified 04/12/19 10:34 banana AdvReac Nausea And Verified 04/12/19 10:34 Vomiting Home Medications: Home Medications ALPRAZolam TAB* [Xanax TAB*] 0.25 mg PO DAILY PRN MDD 1 tab 04/12/19 [History Confirmed 04/12/19] Betamethasone Dipropionate [Betamethasone Diprop Augmented] 1 applic TOPICAL BID 04/12/19 [History Confirmed 04/12/19] DULoxetine CAP* [Cymbalta CAP*] 40 mg PO DAILY 04/12/19 [History Confirmed ] Metronidazole (TOPICAL)(NF) [Metrocream (NF)] 1 applic TOPICAL BID 04/12/19 [ History Confirmed 04/12/19] Omeprazole (Nf) [Prilosec (NF)] 40 mg PO DAILY 04/12/19 [History Confirmed 04/12] Pravastatin (NF) [Pravachol (NF)] 40 mg PO DAILY 04/12/19 [History Confirmed ] traZODone TAB* [Desyrel TAB*] 100 mg PO BEDTIME 04/12/19 [History Confirmed ] PMH/Surg Hx/FS Hx/Imm Hx Endocrine/Hematology History: Denies: Hx Diabetes Cardiovascular History: Reports: Hx Hypercholesterolemia, Hx Hypertension, Hx Peripheral Vascular Disease - NEEDS TO VASCULAR SURGEON "BAD VEINS" Denies: Hx Congestive Heart Failure, Hx Pacemaker/ICD, Other Cardiovascular Problems/Disorders Respiratory History: Reports: Hx Pulmonary Embolism - ON ELIQUIS 2017 DVT IN LEG A "FEW YEARS AGO", Other Respiratory Problems/Disorders - PE 2016 Denies: Hx Asthma History: Reports: Hx Chronic Renal Failure - creat elevated , Hx Kidney Stones - PRESENTLY LEFT STONE, Other Problems/Disorders - reduced renal function PT. NOT SURE IF THIS IS CURRENT Denies: Hx Renal Disease Sensory History: Reports: Hx Contacts or Glasses - GLASSES Denies: Hx Hearing Aid, Hx Hearing Problem Opthamlomology History: Reports: Hx Contacts or Glasses - GLASSES Psychiatric History: Reports: Hx Anxiety - HISTORY OF Denies: Hx Eating Disorder - Cancer History Hx Chemotherapy: No Hx Radiation Therapy: No Hx Palliative Cancer Treatment: No - Surgical History Surgery Procedure, Year, and Place: LT.KNEE/MENISCUS 2010, LT 4TH FINGER CRUSH INJ.W/SX 2006. June 2015 Cardiac Catherization Hx Anesthesia Reactions: No Infectious Disease History: No Infectious Disease History: Denies: History Other Infectious Disease, Traveled Outside the [place] in Last 30 Days - Family History Known Family History: Positive: Cardiac Disease, Hypertension, Diabetes, Renal Disease - Sister at 27 y.o with kidney failure, Respiratory Disease - Father with emphysema - Social History Alcohol Use: Rare Alcohol Amount: A BEER ONCE IN A WHILE Hx Substance Use: No Substance Use Type: Reports: None Hx Tobacco Use: No Smoking Status (MU): Never Smoked Tobacco Have You Smoked in the Last Year: No Review of Systems Negative: Fever Negative: Chest Pain Negative: Shortness Of Breath Positive: Rash All Other Systems Reviewed And Are Negative: Yes Physical Exam Triage Information Reviewed: Yes Vital Signs On Initial Exam: Initial Vitals Temp Pulse Resp BP Pulse Ox 98.0 F 90 18 166/113 94 04/12/19 10:32 04/12/19 10:32 04/12/19 10:32 04/12/19 10:32 04/12/19 10:32 Vital Signs Reviewed: Yes Appearance: Positive: Well-Appearing Skin: Positive: Other - patches of erythema with excoriation, no warmth to area Head/Face: Positive: Normal Head/Face Inspection Eyes: Positive: Normal, Conjunctiva Clear ENT: Positive: Pharynx normal Respiratory/Lung Sounds: Positive: Clear to Auscultation, Breath Sounds Present Cardiovascular: Positive: Normal, RRR Musculoskeletal: Positive: Strength/ROM Intact - legs, Other - good pulses Neurological: Positive: Normal Procedures - Sedation Patient Received Moderate/Deep Sedation with Procedure: No Diagnostics - Vital Signs Vital Signs Temp Pulse Resp BP Pulse Ox 04/12/19 10:32 98.0 F 90 18 166/113 94 - Laboratory Result Diagrams: 04/12/19 11:00 04/12/19 11:00 Lab Statement: Any lab studies that have been ordered have been reviewed, and results considered in the medical decision making process. Course/Dx - Course Course Of Treatment: 58 year old male presents with worsening rash for the past couple weeks. He states has a history of ezcema but it has not been this bad in a while. he has a history of cellulitis. also history of dvt and currently on eliquis. He denies any fevers or chills. He does have a rehab specialist. He has been placing steroid area but has not been helping. denies any chest pain or SOB. admits to swelling of area. states rash has been present on bilateral feet for years. he states that steroids sometimes help with the rash. On exam has eczema rash on legs. no evidence of cellulitis. will start steroid oral. wbc normal. crp normal. will have follow up with derm or primary. states will need steriod cream refill soon but will need high potency which likely will not be able to prescribe here as will likely need prior autho. patient understand and agrees with plan. - Differential Diagnoses - Skin Complaint Differential Diagnoses: Cellulitis, Contact Dermatitis, Eczema - Diagnoses Provider Diagnoses: Eczema Discharge ED - Sign-Out/Discharge Documenting (check all that apply): Patient Departure - Discharge Plan Condition: Good Disposition: HOME Prescriptions: predniSONE TAB* [Deltasone 10 MG TAB*] 40 mg PO DAILY #24 tab Patient Education Materials: Eczema (ED) Referrals: Robert Paz MD [Medical Doctor] - Fay Tilley MD [Primary Care Provider] - Additional Instructions: Apply thick cream to area such as Eucerin take prednisone four tablets for 4 days, 2 tablets for 3 days, 1 tablet for 2 days Follow up with primary or dermatology Return to ED if develop any new or worsening symptoms - Billing Disposition and Condition Condition: GOOD Disposition: Home - Attestation Statements Provider Attestation: I was available for consult. This patient was seen by the [facility]. The patient was not presented to, seen by, or examined by me. Marcus Bell MD
[2019-04-12 11:21] LABS: ABS Basophils 0.1 10^3/ul (0-0.2); ABS Lymphocytes 0.7 10^3/ul (1.0-4.8); ABS Monocytes 0.7 10^3/ul (0-0.8); ABS Neutrophils 4.6 10^3/ul (1.5-7.7); Eosinophil % 14.6 %; Hematocrit 42 % (42-52); Hemoglobin 14.4 g/dL (14.0-18.0); Lymphocyte % 10.3 %; Mean Corpuscular HGB Conc 34 g/dL (31-36); Mean Corpuscular Hemoglobin 35 pg (27-31); Mean Corpuscular Volume 101 fL (80-94); Mean Platelet Volume 7.1 fL (7.4-10.4); Platelet Count 209 10^3/uL (150-450); Red Blood Count 4.14 10^6 /uL (4.18-5.48); Red Cell Distribution Width 15 % (10-15); White Blood Count 7.1 10^3/uL (3.5-10.8)
[2019-04-12 11:41] LABS: Albumin 4.3 g/dL (3.2-5.2); Albumin/Globulin Ratio 1.7 (1-3); BUN/Creatinine Ratio 14.4 (8-20); C Reactive Protein 1.36 mg/L (<8.01); Calcium 9.4 mg/dL (8.6-10.3); EGFR African American 104.5 (>60); EGFR Non-African American 86.4 (>60); Globulin 2.6 g/dL (2-4); Total Bilirubin 0.6 mg/dL (0.2-1.0); Total Protein 6.9 g/dL (6.4-8.9)
[2019-04-12] MEDS: methylPREDNISolone 125 MG* 2 ML VIAL IM ONE (12:47)
[2019-04-12 12:51] VITALS: BP 142/78
[2019-04-12 13:02] LABS: Potassium 3.6 mmol/L (3.5-5.0)
== END 2019-04-12 12:35 | disposition home or self-care (01) ==
LOC: ED 10:29
DX: L30.9 Dermatitis, unspecified (principal); E78.00 Pure hypercholesterolemia, unspecified; I73.9 Peripheral vascular disease, unspecified; I12.9 Hypertensive chronic kidney disease with stage 1 through stage 4 chronic kidney disease, or unspecified chronic kidney disease; N18.9 Chronic kidney disease, unspecified; Z86.711 Personal history of pulmonary embolism; Z86.718 Personal history of other venous thrombosis and embolism; Z79.01 Long term (current) use of anticoagulants; Z79.899 Other long term (current) drug therapy; Z88.1 Allergy status to other antibiotic agents; Z91.041 Radiographic dye allergy status
CPT/HCPCS: 36415; 80053; 83605; 85025; 86140; 96372; 99283; J2930

== ENCOUNTER 2020-09-03 08:24 | Inpatient (IN) ==
[2020-09-03] MEDS ORDERED: Ondansetron 4 mg VIAL 2 MG/ML 2 ml VIAL IV ONE ×2 (08:25→11:19)
[2020-09-03] MEDS ORDERED: NS 0.9% 1000 ml BAG 1,000 ML IV ONE ×2 (08:25→09:29)
[2020-09-03] MEDS ORDERED: Morphine 4 MG/ML VIAL (1 ml) IV ONE ×2 (08:39→11:19)
[2020-09-03 09:04] LABS: Hematocrit 48 % (42-52); Hemoglobin 16.5 g/dL (14.0-18.0); Mean Corpuscular HGB Conc 34 g/dL (31-36); Mean Corpuscular Hemoglobin 34 pg (27-31); Mean Corpuscular Volume 100 fL (80-94); Platelet Count 232 10^3/uL (150-450); Red Cell Distribution Width 15 % (10-15); White Blood Count 12.7 10^3/uL (3.5-10.8)
[2020-09-03 09:21] LABS: Albumin/Globulin Ratio 1.4 (1-3); C Reactive Protein 262.24 mg/L (<8.01); Calcium 8.3 mg/dL (8.6-10.3); EGFR African American 69.4 (>60); EGFR Non-African American 57.3 (>60); Globulin 2.8 g/dL (2-4); Potassium 3.9 mmol/L (3.5-5.0); Total Bilirubin 2.3 mg/dL (0.2-1.0); Total Protein 6.8 g/dL (6.4-8.9)
[2020-09-03] MEDS ORDERED: NS 0.9% 500 ml BAG 500 ML IV ONE (09:29)
[2020-09-03 09:37] LABS: ABS Lymphocytes 0.7 10^3/ul (1.0-4.8); ABS Monocytes 1.3 10^3/ul (0-0.8); ABS Neutrophils 10.6 10^3/ul (1.5-7.7); Lymphocyte % 5.8 %
[2020-09-03] MEDS ORDERED: Iodixanol (CONTRAST) 320 MG/ML 100 ML SDV IV ONE (10:29)
[2020-09-03] MEDS ORDERED: Piperacillin/Tazobac ADVAN 3.375 GM in NS 0.9% 100 ml BAG 100 ML IV ONE (11:08)
[2020-09-03] MEDS ORDERED: Albuterol HFA INHALER 8 gm MDI INH PRN (14:02)
[2020-09-03 15:44] LABS: Hematocrit 41 % (42-52); Hemoglobin 14.1 g/dL (14.0-18.0)
[2020-09-03] MEDS: Morphine 2 MG/ML SYRINGE IV PRN ×3 (16:29→23:30)
[2020-09-03 22:09] LABS: Hematocrit 40 % (42-52); Hemoglobin 13.4 g/dL (14.0-18.0)
[2020-09-04] MEDS: Morphine 2 MG/ML SYRINGE IV PRN ×5 (03:33→21:22)
[2020-09-04] MEDS: Lactated Ringers 1000 ml BAG 1,000 ML IV SCH (03:33)
[2020-09-04 05:42] LABS: ABS Lymphocytes 0.8 10^3/ul (1.0-4.8); ABS Monocytes 1.4 10^3/ul (0-0.8); ABS Neutrophils 8.4 10^3/ul (1.5-7.7); Eosinophil % 0.3 %; Hematocrit 38 % (42-52); Hemoglobin 13.2 g/dL (14.0-18.0); Lymphocyte % 7.4 %; Mean Corpuscular HGB Conc 35 g/dL (31-36); Mean Corpuscular Hemoglobin 36 pg (27-31); Mean Corpuscular Volume 102 fL (80-94); Mean Platelet Volume 7.9 fL (7.4-10.4); Platelet Count 162 10^3/uL (150-450); Red Cell Distribution Width 15 % (10-15); White Blood Count 10.6 10^3/uL (3.5-10.8)
[2020-09-04 06:01] LABS: Albumin 3.1 g/dL (3.2-5.2); Albumin/Globulin Ratio 1.3 (1-3); EGFR African American 86.2 (>60); EGFR Non-African American 71.3 (>60); Globulin 2.3 g/dL (2-4); Potassium 3.3 mmol/L (3.5-5.0); Total Bilirubin 1.4 mg/dL (0.2-1.0); Total Protein 5.4 g/dL (6.4-8.9)
[2020-09-04 06:07] LABS: Calcium 6.4 mg/dL (8.6-10.3)
[2020-09-04] MEDS ORDERED: CALCIUM GLUCONATE 1GM/50ML NS 1 GM/50 ML BAG IV ONE (06:10)
[2020-09-04] MEDS ORDERED: Perflutren Lipid Microsphere 3 ML VIAL ONE (07:47)
[2020-09-04] MEDS: KCL 20 MEQ/100 ML IVPREMIX 20 MEQ/100 ML BAG IV SCH ×2 (09:06→13:20)
[2020-09-04] MEDS: DULoxetine DR 20 mg CAP PO SCH (09:06)
[2020-09-04 10:15] LABS: HDL Cholesterol 70.6 mg/dL; Indirect Bilirubin 0.9 mg/dL (0.3-1.0)
[2020-09-05] MEDS: Morphine 2 MG/ML SYRINGE IV PRN ×5 (01:18→21:04)
[2020-09-05] MEDS: Lactated Ringers 1000 ml BAG 1,000 ML IV SCH ×2 (04:20→08:08)
[2020-09-05 06:35] LABS: Hematocrit 33 % (42-52); Hemoglobin 11.7 g/dL (14.0-18.0); Mean Corpuscular HGB Conc 35 g/dL (31-36); Mean Corpuscular Hemoglobin 35 pg (27-31); Mean Corpuscular Volume 101 fL (80-94); Platelet Count 178 10^3/uL (150-450); Red Cell Distribution Width 15 % (10-15); White Blood Count 9.7 10^3/uL (3.5-10.8)
[2020-09-05 06:40] LABS: ABS Lymphocytes 0.5 10^3/ul (1.0-4.8); ABS Monocytes 1.7 10^3/ul (0-0.8); ABS Neutrophils 7.4 10^3/ul (1.5-7.7); Eosinophil % 0.5 %; Lymphocyte % 5.4 %
[2020-09-05 06:55] LABS: Albumin 2.9 g/dL (3.2-5.2); Albumin/Globulin Ratio 1.2 (1-3); EGFR African American 130.5 (>60); EGFR Non-African American 107.9 (>60); Globulin 2.4 g/dL (2-4); Magnesium 1.2 mg/dL (1.9-2.7); Potassium 3.5 mmol/L (3.5-5.0); Total Bilirubin 1.3 mg/dL (0.2-1.0); Total Protein 5.3 g/dL (6.4-8.9)
[2020-09-05 06:59] LABS: Calcium 6.1 mg/dL (8.6-10.3)
[2020-09-05] MEDS ORDERED: Magnesium Sulf 4 GM/100 ML IV 4,000 MG/100 ML BAG IVPB ONE (08:00)
[2020-09-05] MEDS: DULoxetine DR 20 mg CAP PO SCH (08:07)
[2020-09-05] MEDS ORDERED: Calcium Gluconate 3 GM in NS 0.9% 250 ml 250 ML IV ONE (08:30)
[2020-09-05 08:36] LABS: C Reactive Protein 333.1 mg/L (<8.01)
[2020-09-06] MEDS: Lactated Ringers 1000 ml BAG 1,000 ML IV SCH (01:43)
[2020-09-06] MEDS ORDERED: Multivitamins/Minerals TAB ONE (04:14)
[2020-09-06] MEDS: Multivitamins/Minerals TAB PO SCH ×2 (04:16→08:00)
[2020-09-06] MEDS: Morphine 2 MG/ML SYRINGE IV PRN (04:21)
[2020-09-06 05:39] LABS: Hematocrit 35 % (42-52); Mean Corpuscular HGB Conc 35 g/dL (31-36); Mean Corpuscular Hemoglobin 35 pg (27-31); Mean Corpuscular Volume 100 fL (80-94); Platelet Count 236 10^3/uL (150-450); Red Blood Count 3.45 10^6 /uL (4.18-5.48); Red Cell Distribution Width 15 % (10-15); White Blood Count 10.2 10^3/uL (3.5-10.8)
[2020-09-06 05:53] LABS: Albumin/Globulin Ratio 1.2 (1-3); Calcium 6.7 mg/dL (8.6-10.3); EGFR African American 154.4 (>60); EGFR Non-African American 127.6 (>60); Globulin 2.6 g/dL (2-4); Potassium 3.2 mmol/L (3.5-5.0); Total Bilirubin 1.2 mg/dL (0.2-1.0); Total Protein 5.6 g/dL (6.4-8.9)
[2020-09-06 06:13] LABS: ABS Eosinophils 0.1 10^3/ul (0-0.6); ABS Lymphocytes 0.6 10^3/ul (1.0-4.8); ABS Monocytes 1.9 10^3/ul (0-0.8); ABS Neutrophils 7.5 10^3/ul (1.5-7.7); Eosinophil % 0.7 %; Lymphocyte % 6.3 %
[2020-09-06] MEDS: DULoxetine DR 20 mg CAP PO SCH (08:00)
[2020-09-06] MEDS: KCL 20 MEQ/100 ML IVPREMIX 20 MEQ/100 ML BAG IV SCH ×2 (10:10→14:10)
[2020-09-06] MEDS ORDERED: Naloxone 0.4 mg VIAL 0.4 mg/ml 1 ml VIAL IV PUSH ONE (10:12)
[2020-09-06] MEDS ORDERED: Naloxone 0.4 mg VIAL 0.4 mg/ml 1 ml VIAL IV PUSH SCH (11:00)
[2020-09-06 11:36] LABS: Magnesium 2.1 mg/dL (1.9-2.7)
[2020-09-06] MEDS ORDERED: Calcium Gluconate 2 GM in NS 0.9% 100 ml BAG 100 ML IV ONE (15:00)
[2020-09-07] MEDS: Lactated Ringers 1000 ml BAG 1,000 ML IV SCH ×2 (01:31→20:25)
[2020-09-07 06:00] LABS: Albumin 2.9 g/dL (3.2-5.2); Albumin/Globulin Ratio 1.1 (1-3); Calcium 7.6 mg/dL (8.6-10.3); EGFR African American 172.9 (>60); EGFR Non-African American 142.9 (>60); Globulin 2.7 g/dL (2-4); Potassium 3.6 mmol/L (3.5-5.0); Total Bilirubin 1.1 mg/dL (0.2-1.0); Total Protein 5.6 g/dL (6.4-8.9)
[2020-09-07] MEDS: DULoxetine DR 20 mg CAP PO SCH (09:02)
[2020-09-07] MEDS: Multivitamins/Minerals TAB PO SCH (09:02)
[2020-09-07] MEDS ORDERED: Thiamine 100 MG/ML 2 ml VIAL 500 MG in NS 0.9% 250 ml 250 ML IV ONE (10:03)
[2020-09-07] MEDS ORDERED: Polyethylene Glycol 3350 17 GM PACKET PO PRN (11:28)
[2020-09-07] MEDS: Thiamine 100 MG/ML 2 ml VIAL 500 MG in NS 0.9% 250 ml 250 ML IV SCH ×2 (12:06→20:25)
[2020-09-07 14:12] LABS: Urine Appearance Cloudy; Urine Bilirubin Negative (Negative); Urine Blood Negative (Negative); Urine Color Amber; Urine Glucose Negative (Negative); Urine Ketones 2+ (Negative); Urine Nitrite Negative (Negative); Urine Protein 1+(30 mg/dL) (Negative); Urine Specific Gravity 1.016 (1.002-1.030); Urine Urobilinogen Negative (Negative)
[2020-09-07 14:14] LABS: Urine Bacteria Absent (Absent); Urine Red Blood Cell 1+(3-5/hpf) (Absent); Urine Squamous Epithelial Cell Present (Absent); Urine White Blood Cell Trace(0-5/hpf) (Absent)
[2020-09-08] MEDS: Thiamine 100 MG/ML 2 ml VIAL 500 MG in NS 0.9% 250 ml 250 ML IV SCH ×4 (04:40→20:18)
[2020-09-08 06:15] LABS: Albumin 2.6 g/dL (3.2-5.2); Albumin/Globulin Ratio 0.9 (1-3); Calcium 7.5 mg/dL (8.6-10.3); EGFR African American 200.6 (>60); EGFR Non-African American 165.8 (>60); Globulin 2.9 g/dL (2-4); Potassium 3.2 mmol/L (3.5-5.0); Total Bilirubin 0.9 mg/dL (0.2-1.0); Total Protein 5.5 g/dL (6.4-8.9)
[2020-09-08] MEDS ORDERED: Potassium Chlor 20 meq TAB.ER PO ONE (06:28)
[2020-09-08] MEDS ORDERED: Morphine 2 MG/ML SYRINGE IV PRN (06:41)
[2020-09-08] MEDS: Multivitamins/Minerals TAB PO SCH (08:10)
[2020-09-08] MEDS: DULoxetine DR 20 mg CAP PO SCH (08:11)
[2020-09-08] MEDS ORDERED: Thiamine 100 MG/ML 2 ml VIAL 500 MG in NS 0.9% 250 ml 250 ML IV SCH (09:00)
[2020-09-08 10:34] LABS: Hematocrit 33 % (42-52); Hemoglobin 11.5 g/dL (14.0-18.0); Mean Corpuscular HGB Conc 34 g/dL (31-36); Mean Corpuscular Hemoglobin 34 pg (27-31); Mean Corpuscular Volume 99 fL (80-94); Mean Platelet Volume 7.3 fL (7.4-10.4); Platelet Count 281 10^3/uL (150-450); Red Blood Count 3.37 10^6 /uL (4.18-5.48); Red Cell Distribution Width 15 % (10-15); White Blood Count 14.9 10^3/uL (3.5-10.8)
[2020-09-08 10:48] LABS: ABS Eosinophils 0.1 10^3/ul (0-0.6); ABS Lymphocytes 0.8 10^3/ul (1.0-4.8); ABS Monocytes 1.7 10^3/ul (0-0.8); ABS Neutrophils 12.2 10^3/ul (1.5-7.7); Eosinophil % 0.6 %; Lymphocyte % 5.4 %
[2020-09-08] MEDS ORDERED: Iohexol 300 (CONTRAST) 10 ML SDV IV ONE (12:45)
[2020-09-08 17:38] LABS: Hematocrit 34 % (42-52); Hemoglobin 11.7 g/dL (14.0-18.0); Mean Corpuscular HGB Conc 34 g/dL (31-36); Mean Corpuscular Hemoglobin 34 pg (27-31); Mean Corpuscular Volume 99 fL (80-94); Mean Platelet Volume 7.1 fL (7.4-10.4); Platelet Count 283 10^3/uL (150-450); Red Blood Count 3.45 10^6 /uL (4.18-5.48); Red Cell Distribution Width 15 % (10-15); White Blood Count 15.6 10^3/uL (3.5-10.8)
[2020-09-08] MEDS: Lactated Ringers 1000 ml BAG 1,000 ML IV SCH (21:38)
[2020-09-08 23:28] LABS: Hematocrit 34 % (42-52); Hemoglobin 11.4 g/dL (14.0-18.0); Mean Corpuscular HGB Conc 34 g/dL (31-36); Mean Corpuscular Hemoglobin 34 pg (27-31); Mean Corpuscular Volume 100 fL (80-94); Mean Platelet Volume 7.1 fL (7.4-10.4); Platelet Count 279 10^3/uL (150-450); Red Blood Count 3.38 10^6 /uL (4.18-5.48); Red Cell Distribution Width 15 % (10-15); White Blood Count 15.5 10^3/uL (3.5-10.8)
[2020-09-09] MEDS: Thiamine 100 MG/ML 2 ml VIAL 500 MG in NS 0.9% 250 ml 250 ML IV SCH (03:32)
[2020-09-09 05:53] LABS: Hematocrit 32 % (42-52); Mean Corpuscular HGB Conc 34 g/dL (31-36); Mean Corpuscular Hemoglobin 34 pg (27-31); Mean Corpuscular Volume 100 fL (80-94); Red Blood Count 3.25 10^6 /uL (4.18-5.48); Red Cell Distribution Width 15 % (10-15); White Blood Count 22.8 10^3/uL (3.5-10.8)
[2020-09-09 06:24] LABS: Blood Urea Nitrogen 9 mg/dL (6-24); CO2 Carbon Dioxide 19 mmol/L (22-32); Calcium 7.4 mg/dL (8.6-10.3); Chloride 107 mmol/L (101-111); EGFR Non-African American 186.7 (>60); Glucose 71 mg/dL (70-100); Sodium 134 mmol/L (135-145)
[2020-09-09 06:48] LABS: Platelet Count Platelets clumped. 10^3/uL (150-450)
[2020-09-09 06:49] LABS: ABS Eosinophils 0.2 10^3/ul (0-0.6); ABS Lymphocytes 1.3 10^3/ul (1.0-4.8); ABS Monocytes 1.9 10^3/ul (0-0.8); ABS Neutrophils 19.4 10^3/ul (1.5-7.7); Lymphocyte % 5.8 %
[2020-09-09] MEDS: DULoxetine DR 20 mg CAP PO SCH (08:14)
[2020-09-09] MEDS: Multivitamins/Minerals TAB PO SCH (08:15)
[2020-09-09 09:01] LABS: Anion Gap 8 mmol/L (2-11)
[2020-09-09 10:09] LABS: Potassium Redraw 3.2 mmol/L (3.5-5.0)
[2020-09-09] MEDS: Lactated Ringers 1000 ml BAG 1,000 ML IV SCH ×2 (10:56→15:18)
[2020-09-09] MEDS: Thiamine 100 MG/ML 2 ml VIAL 250 MG in NS 0.9% 100 ml BAG 100 ML IV SCH (13:00)
[2020-09-09] MEDS ORDERED: Potassium Chlor 20 meq TAB.ER PO ONE (13:52)
[2020-09-09 23:31] LABS: Magnesium 1.4 mg/dL (1.9-2.7)
[2020-09-10] MEDS: Lactated Ringers 1000 ml BAG 1,000 ML IV SCH ×4 (01:22→21:10)
[2020-09-10 06:23] LABS: ABS Eosinophils 0.1 10^3/ul (0-0.6); ABS Lymphocytes 1.1 10^3/ul (1.0-4.8); ABS Monocytes 1.5 10^3/ul (0-0.8); ABS Neutrophils 13.5 10^3/ul (1.5-7.7); Eosinophil % 0.9 %; Hematocrit 33 % (42-52); Hemoglobin 11.5 g/dL (14.0-18.0); Lymphocyte % 6.7 %; Mean Corpuscular HGB Conc 35 g/dL (31-36); Mean Corpuscular Hemoglobin 34 pg (27-31); Mean Corpuscular Volume 99 fL (80-94); Mean Platelet Volume 7.5 fL (7.4-10.4); Nucleated Red Blood Cells % 0.1; Platelet Count 265 10^3/uL (150-450); Red Blood Count 3.36 10^6 /uL (4.18-5.48); Red Cell Distribution Width 15 % (10-15); White Blood Count 16.3 10^3/uL (3.5-10.8)
[2020-09-10 06:42] LABS: C Reactive Protein 282.62 mg/L (<8.01); EGFR African American 215.1 (>60); EGFR Non-African American 177.8 (>60); Magnesium 1.4 mg/dL (1.9-2.7); Potassium 3.4 mmol/L (3.5-5.0)
[2020-09-10] MEDS ORDERED: Magnesium Sulf 4 GM/100 ML IV 4,000 MG/100 ML BAG IVPB ONE (07:41)
[2020-09-10] MEDS: DULoxetine DR 20 mg CAP PO SCH (07:48)
[2020-09-10] MEDS: Multivitamins/Minerals TAB PO SCH (07:48)
[2020-09-10] MEDS ORDERED: Potassium Chlor 20 meq TAB.ER PO ONE (08:39)
[2020-09-10 08:50] LABS: Urine Appearance Clear; Urine Bilirubin Negative (Negative); Urine Blood Negative (Negative); Urine Color Yellow; Urine Glucose Negative (Negative); Urine Ketones 1+ (Negative); Urine Nitrite Negative (Negative); Urine Protein Negative (Negative); Urine Specific Gravity 1.014 (1.002-1.030); Urine Urobilinogen Positive (Negative)
[2020-09-10] MEDS: Thiamine 100 MG/ML 2 ml VIAL 250 MG in NS 0.9% 100 ml BAG 100 ML IV SCH (12:59)
[2020-09-10] MEDS ORDERED: Lactated Ringers 1000 ml BAG 1,000 ML IV SCH (16:58)
[2020-09-11] MEDS: Lactated Ringers 1000 ml BAG 1,000 ML IV SCH ×2 (03:49→22:35)
[2020-09-11 06:43] LABS: ABS Lymphocytes 0.8 10^3/ul (1.0-4.8); ABS Monocytes 1.5 10^3/ul (0-0.8); ABS Neutrophils 14.3 10^3/ul (1.5-7.7); Eosinophil % 0.1 %; Hematocrit 33 % (42-52); Hemoglobin 11.2 g/dL (14.0-18.0); Lymphocyte % 4.6 %; Mean Corpuscular HGB Conc 34 g/dL (31-36); Mean Corpuscular Hemoglobin 34 pg (27-31); Mean Corpuscular Volume 99 fL (80-94); Mean Platelet Volume 7.7 fL (7.4-10.4); Platelet Count 268 10^3/uL (150-450); Red Blood Count 3.31 10^6 /uL (4.18-5.48); Red Cell Distribution Width 15 % (10-15); White Blood Count 16.6 10^3/uL (3.5-10.8)
[2020-09-11 07:02] LABS: Albumin 2.3 g/dL (3.2-5.2); Albumin/Globulin Ratio 0.9 (1-3); Calcium 8.4 mg/dL (8.6-10.3); EGFR African American 220.4 (>60); EGFR Non-African American 182.2 (>60); Globulin 2.7 g/dL (2-4); Magnesium 1.5 mg/dL (1.9-2.7); Potassium 3.8 mmol/L (3.5-5.0); Total Bilirubin 1.1 mg/dL (0.2-1.0)
[2020-09-11] MEDS: Multivitamins/Minerals TAB PO SCH (08:40)
[2020-09-11] MEDS: DULoxetine DR 20 mg CAP PO SCH (08:40)
[2020-09-11] MEDS ORDERED: Magnesium Sulf 4 GM/100 ML IV 4,000 MG/100 ML BAG IVPB ONE (09:00)
[2020-09-11] MEDS ORDERED: Magnesium Sulfate 2 gm BAG 2 GM/50 ML BAG IVPB ONE (11:25)
[2020-09-11] MEDS: Thiamine 100 MG/ML 2 ml VIAL 250 MG in NS 0.9% 100 ml BAG 100 ML IV SCH (12:39)
[2020-09-12] MEDS: Lactated Ringers 1000 ml BAG 1,000 ML IV SCH ×3 (05:42→20:19)
[2020-09-12 05:57] LABS: ABS Lymphocytes 0.7 10^3/ul (1.0-4.8); ABS Monocytes 1.4 10^3/ul (0-0.8); ABS Neutrophils 10.4 10^3/ul (1.5-7.7); Eosinophil % 0.3 %; Hematocrit 32 % (42-52); Hemoglobin 11.3 g/dL (14.0-18.0); Lymphocyte % 5.2 %; Mean Corpuscular HGB Conc 35 g/dL (31-36); Mean Corpuscular Hemoglobin 34 pg (27-31); Mean Corpuscular Volume 99 fL (80-94); Mean Platelet Volume 7.8 fL (7.4-10.4); Nucleated Red Blood Cells % 0.1; Platelet Count 311 10^3/uL (150-450); Red Blood Count 3.28 10^6 /uL (4.18-5.48); Red Cell Distribution Width 15 % (10-15); White Blood Count 12.5 10^3/uL (3.5-10.8)
[2020-09-12 06:03] LABS: INR 1.78 (0.82-1.09)
[2020-09-12] MEDS: DULoxetine DR 20 mg CAP PO SCH (08:24)
[2020-09-12] MEDS: Multivitamins/Minerals TAB PO SCH (08:24)
[2020-09-12 09:49] LABS: Albumin 2.3 g/dL (3.2-5.2); Albumin/Globulin Ratio 0.9 (1-3); Calcium 8.6 mg/dL (8.6-10.3); EGFR African American 215.1 (>60); EGFR Non-African American 177.8 (>60); Globulin 2.7 g/dL (2-4); Magnesium 1.4 mg/dL (1.9-2.7); Potassium 3.7 mmol/L (3.5-5.0); Total Bilirubin 1.2 mg/dL (0.2-1.0)
[2020-09-12] MEDS ORDERED: Magnesium Sulf 4 GM/100 ML IV 4,000 MG/100 ML BAG IVPB ONE (10:30)
[2020-09-12] MEDS: Thiamine 100 MG/ML 2 ml VIAL 250 MG in NS 0.9% 100 ml BAG 100 ML IV SCH (14:57)
[2020-09-12] MEDS ORDERED: Lactulose 30 ml UDC PO ONE (21:20)
[2020-09-13] MEDS: Lactated Ringers 1000 ml BAG 1,000 ML IV SCH ×2 (04:53→21:47)
[2020-09-13 06:25] LABS: ABS Lymphocytes 0.7 10^3/ul (1.0-4.8); ABS Monocytes 1.9 10^3/ul (0-0.8); ABS Neutrophils 8.7 10^3/ul (1.5-7.7); Eosinophil % 0.2 %; Hematocrit 29 % (42-52); Hemoglobin 10.2 g/dL (14.0-18.0); Mean Corpuscular HGB Conc 35 g/dL (31-36); Mean Corpuscular Hemoglobin 34 pg (27-31); Mean Corpuscular Volume 98 fL (80-94); Mean Platelet Volume 7.9 fL (7.4-10.4); Platelet Count 301 10^3/uL (150-450); Red Cell Distribution Width 15 % (10-15); White Blood Count 11.3 10^3/uL (3.5-10.8)
[2020-09-13 06:34] LABS: Albumin 2.2 g/dL (3.2-5.2); Albumin/Globulin Ratio 0.9 (1-3); Calcium 8.1 mg/dL (8.6-10.3); EGFR African American 258.1 (>60); EGFR Non-African American 213.3 (>60); Globulin 2.5 g/dL (2-4); Magnesium 1.4 mg/dL (1.9-2.7); Potassium 3.3 mmol/L (3.5-5.0); Total Bilirubin 1.1 mg/dL (0.2-1.0); Total Protein 4.7 g/dL (6.4-8.9)
[2020-09-13] MEDS ORDERED: Potassium Chlor 20 meq TAB.ER PO ONE (07:37)
[2020-09-13] MEDS ORDERED: Magnesium Sulf 4 GM/100 ML IV 4,000 MG/100 ML BAG IVPB ONE (08:00)
[2020-09-13] MEDS: DULoxetine DR 20 mg CAP PO SCH (08:51)
[2020-09-13] MEDS: Multivitamins/Minerals TAB PO SCH (08:51)
[2020-09-13 12:12] LABS: Hematocrit 31 % (42-52); Hemoglobin 10.6 g/dL (14.0-18.0); Mean Corpuscular HGB Conc 35 g/dL (31-36); Mean Corpuscular Hemoglobin 34 pg (27-31); Mean Corpuscular Volume 99 fL (80-94); Mean Platelet Volume 7.8 fL (7.4-10.4); Platelet Count 317 10^3/uL (150-450); Red Blood Count 3.09 10^6 /uL (4.18-5.48); Red Cell Distribution Width 15 % (10-15); White Blood Count 10.6 10^3/uL (3.5-10.8)
[2020-09-13] MEDS: Thiamine 100 MG/ML 2 ml VIAL 250 MG in NS 0.9% 100 ml BAG 100 ML IV SCH (12:36)
[2020-09-13] MEDS: Pantoprazole VIAL 40 MG VIAL IV SCH (21:31)
[2020-09-14] MEDS: Lactated Ringers 1000 ml BAG 1,000 ML IV SCH ×2 (04:42→14:46)
[2020-09-14 06:57] LABS: Hematocrit 31 % (42-52); Hemoglobin 10.8 g/dL (14.0-18.0); Mean Corpuscular HGB Conc 35 g/dL (31-36); Mean Corpuscular Hemoglobin 35 pg (27-31); Mean Corpuscular Volume 99 fL (80-94); Mean Platelet Volume 7.6 fL (7.4-10.4); Platelet Count 344 10^3/uL (150-450); Red Blood Count 3.09 10^6 /uL (4.18-5.48); Red Cell Distribution Width 15 % (10-15); White Blood Count 10.7 10^3/uL (3.5-10.8)
[2020-09-14 07:02] LABS: INR 1.78 (0.82-1.09)
[2020-09-14 07:13] LABS: Albumin 2.1 g/dL (3.2-5.2); Albumin/Globulin Ratio 0.8 (1-3); Calcium 8.1 mg/dL (8.6-10.3); EGFR African American 244.3 (>60); EGFR Non-African American 201.9 (>60); Globulin 2.8 g/dL (2-4); Magnesium 1.4 mg/dL (1.9-2.7); Potassium 3.4 mmol/L (3.5-5.0); Total Bilirubin 1.1 mg/dL (0.2-1.0); Total Protein 4.9 g/dL (6.4-8.9)
[2020-09-14] MEDS ORDERED: Magnesium Sulf 4 GM/100 ML IV 4,000 MG/100 ML BAG IVPB ONE (08:00)
[2020-09-14 08:37] LABS: ABS Lymphocytes 0.8 10^3/ul (1.0-4.8); ABS Neutrophils 7.8 10^3/ul (1.5-7.7); Eosinophil % 0.4 %; Lymphocyte % 7.6 %
[2020-09-14] MEDS: DULoxetine DR 20 mg CAP PO SCH (09:59)
[2020-09-14] MEDS: Pantoprazole VIAL 40 MG VIAL IV SCH ×2 (10:01→21:36)
[2020-09-14] MEDS: Multivitamins/Minerals TAB PO SCH (10:01)
[2020-09-14] MEDS ORDERED: Potassium Chlor 20 meq TAB.ER PO ONE (10:09)
[2020-09-14 11:07] LABS: TSH Ultra Thyroid Stim Horm 0.16 mcIU/mL (0.34-5.60)
[2020-09-14 11:18] LABS: Folate 9.79 ng/mL (5.90-24.80)
[2020-09-14 13:04] LABS: Thyroid Peroxidase Antibodies 0.38 IU/mL (<9)
[2020-09-14 13:43] LABS: HIV 4th Generation Nonreactive (Nonreactive)
[2020-09-14 14:04] LABS: T4, Total 8.13 mcg/dL (6.09-12.23)
[2020-09-14] MEDS: Thiamine 100 MG/ML 2 ml VIAL 500 MG in NS 0.9% 250 ml 250 ML IV SCH ×2 (14:46→21:40)
[2020-09-15] MEDS: Lactated Ringers 1000 ml BAG 1,000 ML IV SCH ×2 (02:58→08:34)
[2020-09-15 05:02] LABS: Hematocrit 30 % (42-52); Hemoglobin 10.3 g/dL (14.0-18.0); Mean Corpuscular HGB Conc 34 g/dL (31-36); Mean Corpuscular Hemoglobin 34 pg (27-31); Mean Corpuscular Volume 99 fL (80-94); Mean Platelet Volume 7.4 fL (7.4-10.4); Platelet Count 377 10^3/uL (150-450); Red Blood Count 3.04 10^6 /uL (4.18-5.48); Red Cell Distribution Width 15 % (10-15); White Blood Count 11.6 10^3/uL (3.5-10.8)
[2020-09-15 05:21] LABS: Albumin 2.1 g/dL (3.2-5.2); Albumin/Globulin Ratio 0.8 (1-3); Calcium 8.1 mg/dL (8.6-10.3); EGFR African American 237.9 (>60); EGFR Non-African American 196.6 (>60); Globulin 2.8 g/dL (2-4); Magnesium 1.5 mg/dL (1.9-2.7); Potassium 3.7 mmol/L (3.5-5.0); Total Bilirubin 1.1 mg/dL (0.2-1.0); Total Protein 4.9 g/dL (6.4-8.9)
[2020-09-15 05:25] LABS: INR 1.8 (0.82-1.09)
[2020-09-15] MEDS: Thiamine 100 MG/ML 2 ml VIAL 500 MG in NS 0.9% 250 ml 250 ML IV SCH ×2 (05:33→13:52)
[2020-09-15 06:32] LABS: ABS Eosinophils 0.1 10^3/ul (0-0.6); ABS Lymphocytes 0.9 10^3/ul (1.0-4.8); ABS Monocytes 2.1 10^3/ul (0-0.8); ABS Neutrophils 8.5 10^3/ul (1.5-7.7); Eosinophil % 0.4 %; Lymphocyte % 7.9 %
[2020-09-15] MEDS ORDERED: Magnesium Sulf 4 GM/100 ML IV 4,000 MG/100 ML BAG IVPB ONE (07:48)
[2020-09-15 08:24] LABS: C Reactive Protein 278.59 mg/L (<8.01)
[2020-09-15] MEDS: Pantoprazole VIAL 40 MG VIAL IV SCH ×2 (08:34→21:08)
[2020-09-15] MEDS: DULoxetine DR 20 mg CAP PO SCH (08:35)
[2020-09-15] MEDS: Multivitamins/Minerals TAB PO SCH (08:35)
[2020-09-16] MEDS: Thiamine 100 MG/ML 2 ml VIAL 500 MG in NS 0.9% 250 ml 250 ML IV SCH ×4 (06:00→21:54)
[2020-09-16] MEDS: Lactated Ringers 1000 ml BAG 1,000 ML IV SCH (06:04)
[2020-09-16 06:07] LABS: Hematocrit 30 % (42-52); Hemoglobin 10.3 g/dL (14.0-18.0); Mean Corpuscular HGB Conc 34 g/dL (31-36); Mean Corpuscular Hemoglobin 34 pg (27-31); Mean Corpuscular Volume 99 fL (80-94); Mean Platelet Volume 7.1 fL (7.4-10.4); Platelet Count 394 10^3/uL (150-450); Red Blood Count 3.03 10^6 /uL (4.18-5.48); Red Cell Distribution Width 15 % (10-15); White Blood Count 12.8 10^3/uL (3.5-10.8)
[2020-09-16 06:27] LABS: Calcium 7.9 mg/dL (8.6-10.3); EGFR African American 220.4 (>60); EGFR Non-African American 182.2 (>60); Magnesium 1.3 mg/dL (1.9-2.7); Potassium 3.6 mmol/L (3.5-5.0)
[2020-09-16 07:05] LABS: ABS Eosinophils 0.1 10^3/ul (0-0.6); ABS Lymphocytes 1.1 10^3/ul (1.0-4.8); ABS Monocytes 2.2 10^3/ul (0-0.8); ABS Neutrophils 9.4 10^3/ul (1.5-7.7); Eosinophil % 0.6 %; Lymphocyte % 8.7 %
[2020-09-16] MEDS ORDERED: Magnesium Sulf 4 GM/100 ML IV 4,000 MG/100 ML BAG IVPB ONE (07:44)
[2020-09-16 08:21] LABS: C Reactive Protein 242.92 mg/L (<8.01)
[2020-09-16 08:54] LABS: INR 1.74 (0.82-1.09)
[2020-09-16] MEDS: DULoxetine DR 20 mg CAP PO SCH (09:42)
[2020-09-16] MEDS: Multivitamins/Minerals TAB PO SCH (09:43)
[2020-09-16] MEDS: Pantoprazole VIAL 40 MG VIAL IV SCH ×2 (09:43→21:54)
[2020-09-17 01:18] LABS: Hematocrit 30 % (42-52); Hemoglobin 10.5 g/dL (14.0-18.0)
[2020-09-17] MEDS: Thiamine 100 MG/ML 2 ml VIAL 500 MG in NS 0.9% 250 ml 250 ML IV SCH ×2 (06:06→14:31)
[2020-09-17] MEDS: Lactated Ringers 1000 ml BAG 1,000 ML IV SCH (06:06)
[2020-09-17 07:11] LABS: Hematocrit 29 % (42-52); Mean Corpuscular HGB Conc 35 g/dL (31-36); Mean Corpuscular Hemoglobin 34 pg (27-31); Mean Corpuscular Volume 99 fL (80-94); Mean Platelet Volume 7.6 fL (7.4-10.4); Platelet Count 427 10^3/uL (150-450); Red Blood Count 2.94 10^6 /uL (4.18-5.48); Red Cell Distribution Width 15 % (10-15); White Blood Count 13.8 10^3/uL (3.5-10.8)
[2020-09-17 07:18] LABS: ABS Eosinophils 0.1 10^3/ul (0-0.6); ABS Lymphocytes 1.1 10^3/ul (1.0-4.8); ABS Monocytes 1.7 10^3/ul (0-0.8); ABS Neutrophils 10.8 10^3/ul (1.5-7.7); Eosinophil % 0.8 %; INR 1.74 (0.82-1.09); Lymphocyte % 8.2 %
[2020-09-17 07:25] LABS: Albumin 2.1 g/dL (3.2-5.2); Albumin/Globulin Ratio 0.8 (1-3); Calcium 7.8 mg/dL (8.6-10.3); EGFR Non-African American 186.7 (>60); Globulin 2.7 g/dL (2-4); Magnesium 1.4 mg/dL (1.9-2.7); Potassium 3.6 mmol/L (3.5-5.0); Total Bilirubin 0.8 mg/dL (0.2-1.0); Total Protein 4.8 g/dL (6.4-8.9)
[2020-09-17] MEDS ORDERED: Magnesium Sulf 4 GM/100 ML IV 4,000 MG/100 ML BAG IVPB ONE (08:30)
[2020-09-17] MEDS: DULoxetine DR 20 mg CAP PO SCH (09:07)
[2020-09-17] MEDS: Pantoprazole VIAL 40 MG VIAL IV SCH ×2 (09:07→19:56)
[2020-09-17] MEDS: Multivitamins/Minerals TAB PO SCH (09:08)
[2020-09-17] MEDS ORDERED: Iohexol 350 (CONTRAST) 500 ML MDV IV ONE (12:36)
[2020-09-17] MEDS ORDERED: Piperacillin/Tazobac ADVAN 3.375 GM in NS 0.9% 100 ml BAG 100 ML IV ONE (18:20)
[2020-09-17] MEDS ORDERED: Zosyn per Pharmacy NOTE FOLLOW UP SCH (19:00)
[2020-09-17] MEDS: Morphine 2 MG/ML SYRINGE IV PRN (19:57)
[2020-09-17] MEDS: Thiamine 100 MG/ML 2 ml VIAL 250 MG in NS 0.9% 100 ml BAG 100 ML IV SCH (22:15)
[2020-09-18] MEDS: ZOSYN 3.375 GM Q8H per EXTENDED INFUSION IV SCH ×4 (00:48→23:38)
[2020-09-18] MEDS: Morphine 2 MG/ML SYRINGE IV PRN ×4 (01:44→21:04)
[2020-09-18] MEDS: Pantoprazole VIAL 40 MG VIAL IV SCH ×2 (09:43→21:20)
[2020-09-18] MEDS: DULoxetine DR 20 mg CAP PO SCH ×2 (09:43→17:18)
[2020-09-18] MEDS: Multivitamins/Minerals TAB PO SCH ×2 (09:44→17:18)
[2020-09-18 09:55] LABS: Hematocrit 28 % (42-52); Hemoglobin 9.9 g/dL (14.0-18.0); Mean Corpuscular HGB Conc 35 g/dL (31-36); Mean Corpuscular Hemoglobin 35 pg (27-31); Mean Corpuscular Volume 99 fL (80-94); Mean Platelet Volume 7.3 fL (7.4-10.4); Platelet Count 477 10^3/uL (150-450); Red Blood Count 2.87 10^6 /uL (4.18-5.48); Red Cell Distribution Width 15 % (10-15); White Blood Count 14.6 10^3/uL (3.5-10.8)
[2020-09-18 09:57] LABS: ABS Basophils 0.2 10^3/ul (0-0.2); ABS Eosinophils 0.1 10^3/ul (0-0.6); ABS Lymphocytes 1.1 10^3/ul (1.0-4.8); ABS Monocytes 1.9 10^3/ul (0-0.8); ABS Neutrophils 11.4 10^3/ul (1.5-7.7); Eosinophil % 0.8 %; Lymphocyte % 7.4 %
[2020-09-18 10:00] LABS: INR 1.77 (0.82-1.09)
[2020-09-18 10:10] LABS: Albumin 2.1 g/dL (3.2-5.2); Calcium 7.8 mg/dL (8.6-10.3); Magnesium 1.4 mg/dL (1.9-2.7); Potassium 3.7 mmol/L (3.5-5.0); Total Bilirubin 0.8 mg/dL (0.2-1.0)
[2020-09-18 10:17] LABS: Albumin/Globulin Ratio 0.8 (1-3); C Reactive Protein 239.31 mg/L (<8.01); EGFR African American 205.2 (>60); EGFR Non-African American 169.6 (>60); Globulin 2.7 g/dL (2-4); Total Protein 4.8 g/dL (6.4-8.9)
[2020-09-18] MEDS ORDERED: diPHENhydraMINE IV 50 MG/ML 1 ml VIAL (BENADRYL) IV ONE (10:53)
[2020-09-18] MEDS ORDERED: fentaNYL 100 mcg/2 ml 50 MCG/ML VIAL ONE (13:21)
[2020-09-18] MEDS ORDERED: Magnesium Sulf 4 GM/100 ML IV 4,000 MG/100 ML BAG IVPB ONE (18:30)
[2020-09-19] MEDS: Morphine 2 MG/ML SYRINGE IV PRN ×2 (01:13→15:44)
[2020-09-19] MEDS: Lactated Ringers 1000 ml BAG 1,000 ML IV SCH (01:16)
[2020-09-19] MEDS: Thiamine 100 MG/ML 2 ml VIAL 250 MG in NS 0.9% 100 ml BAG 100 ML IV SCH ×2 (02:23→20:08)
[2020-09-19] MEDS: Pantoprazole VIAL 40 MG VIAL IV SCH ×2 (08:38→20:08)
[2020-09-19] MEDS: ZOSYN 3.375 GM Q8H per EXTENDED INFUSION IV SCH ×2 (08:38→16:45)
[2020-09-19] MEDS ORDERED: Desflurane 240 ML INH ONE (08:50)
[2020-09-19] MEDS ORDERED: Lidocaine 2% PF 5 ML VIAL ONE (08:50)
[2020-09-19] MEDS ORDERED: Sevoflurane BOTTLE ONE (08:50)
[2020-09-19] MEDS ORDERED: Rocuronium 50 mg VIAL 10 mg/ml 5 ml VIAL (50 mg) ONE ×2 (08:51→10:46)
[2020-09-19] MEDS: Multivitamins/Minerals TAB PO SCH (09:24)
[2020-09-19] MEDS: DULoxetine DR 20 mg CAP PO SCH (09:24)
[2020-09-19] MEDS ORDERED: Propofol 10 mg/ml 100 ML BTL 100 ML ONE (10:49)
[2020-09-19 11:03] LABS: Hematocrit 27 % (42-52); Mean Corpuscular HGB Conc 34 g/dL (31-36); Mean Corpuscular Hemoglobin 34 pg (27-31); Mean Corpuscular Volume 100 fL (80-94); Mean Platelet Volume 7.3 fL (7.4-10.4); Platelet Count 460 10^3/uL (150-450); Red Blood Count 2.67 10^6 /uL (4.18-5.48); Red Cell Distribution Width 16 % (10-15); White Blood Count 17.7 10^3/uL (3.5-10.8)
[2020-09-19 11:18] LABS: Activated Partial Thrombo Time 28.9 seconds (26.0-38.0); INR 1.83 (0.82-1.09)
[2020-09-19 11:19] LABS: C Reactive Protein 270.42 mg/L (<8.01); Calcium 7.4 mg/dL (8.6-10.3); EGFR African American 210.1 (>60); EGFR Non-African American 173.6 (>60); Magnesium 1.8 mg/dL (1.9-2.7); Phosphorus 5.7 mg/dL (2.5-5.0); Potassium 3.5 mmol/L (3.5-5.0)
[2020-09-19 11:44] LABS: ABS Lymphocytes 1.1 10^3/ul (1.0-4.8); ABS Monocytes 1.2 10^3/ul (0-0.8); ABS Neutrophils 15.4 10^3/ul (1.5-7.7); Eosinophil % 0.1 %; Lymphocyte % 6.4 %
[2020-09-19] MEDS ORDERED: Naloxone 0.4 mg VIAL 0.4 mg/ml 1 ml VIAL IV PRN (13:42)
[2020-09-19] MEDS ORDERED: HYDROmorphone 1 MG/1 ML SYRINGE IV PRN (13:42)
[2020-09-19] MEDS ORDERED: Ondansetron 4 mg VIAL 2 MG/ML 2 ml VIAL IV PRN (13:42)
[2020-09-19] MEDS ORDERED: HYDROmorphone 1 MG/1 ML SYRINGE ONE (13:48)
[2020-09-19] MEDS ORDERED: HYDROmorphone 0.5 MG/0.5 ML SYRINGE IV SLOW PU PRN (16:42)
[2020-09-19] MEDS ORDERED: TPN 24 HR with D10W 1000 ml BAG 1,000 ML, Amino Acid Infusion 10% 850 ML, Sterile Water... IV SCH (17:00)
[2020-09-19] MEDS: TPN 24 HR with Dextrose 50% Water 500 ML, Amino Acid Infusion 10% 850 ML, Sterile Water... CENTR SCH (17:51)
[2020-09-19] MEDS: HYDROmorphone 1 MG/1 ML SYRINGE IV SLOW PU PRN (20:08)
[2020-09-19] MEDS: Heparin 5000 UNITS/ML 1 mL VIAL SUBCUT SCH (20:33)
[2020-09-19] MEDS ORDERED: Metoprolol Tartrate 5 mg VIAL 5 ml VIAL (1 mg/ml) IV PRN (20:34)
[2020-09-19 21:01] LABS: Hematocrit 31 % (42-52); Hemoglobin 10.5 g/dL (14.0-18.0); Mean Corpuscular HGB Conc 34 g/dL (31-36); Mean Corpuscular Hemoglobin 34 pg (27-31); Mean Corpuscular Volume 99 fL (80-94); Mean Platelet Volume 7.4 fL (7.4-10.4); Platelet Count 594 10^3/uL (150-450); Red Blood Count 3.12 10^6 /uL (4.18-5.48); Red Cell Distribution Width 16 % (10-15); White Blood Count 29.4 10^3/uL (3.5-10.8)
[2020-09-19 21:09] LABS: ABS Lymphocytes 0.8 10^3/ul (1.0-4.8); ABS Monocytes 1.2 10^3/ul (0-0.8); ABS Neutrophils 27.4 10^3/ul (1.5-7.7); Lymphocyte % 2.7 %
[2020-09-19 21:11] LABS: Activated Partial Thrombo Time 31.9 seconds (26.0-38.0); INR 1.71 (0.82-1.09)
[2020-09-19 21:17] LABS: EGFR Non-African American 186.7 (>60)
[2020-09-19] MEDS ORDERED: Magnesium Sulfate 2 gm BAG 2 GM/50 ML BAG IVPB ONE (21:44)
[2020-09-20] MEDS: HYDROmorphone 1 MG/1 ML SYRINGE IV SLOW PU PRN ×2 (00:19→04:23)
[2020-09-20] MEDS: ZOSYN 3.375 GM Q8H per EXTENDED INFUSION IV SCH ×3 (00:30→15:59)
[2020-09-20] MEDS: Heparin 5000 UNITS/ML 1 mL VIAL SUBCUT SCH ×3 (04:23→20:09)
[2020-09-20 04:55] LABS: Hematocrit 30 % (42-52); Hemoglobin 9.8 g/dL (14.0-18.0); Mean Corpuscular HGB Conc 33 g/dL (31-36); Mean Corpuscular Hemoglobin 33 pg (27-31); Mean Corpuscular Volume 101 fL (80-94); Mean Platelet Volume 7.3 fL (7.4-10.4); Platelet Count 543 10^3/uL (150-450); Red Blood Count 2.97 10^6 /uL (4.18-5.48); Red Cell Distribution Width 15 % (10-15); White Blood Count 28.8 10^3/uL (3.5-10.8)
[2020-09-20 05:10] LABS: INR 1.62 (0.82-1.09)
[2020-09-20 05:12] LABS: Albumin 1.7 g/dL (3.2-5.2); Albumin/Globulin Ratio 0.7 (1-3); Calcium 7.5 mg/dL (8.6-10.3); EGFR African American 205.2 (>60); EGFR Non-African American 169.6 (>60); Globulin 2.3 g/dL (2-4); Magnesium 1.8 mg/dL (1.9-2.7); Potassium 3.7 mmol/L (3.5-5.0); Total Bilirubin 0.7 mg/dL (0.2-1.0)
[2020-09-20 05:15] LABS: ABS Lymphocytes 1.3 10^3/ul (1.0-4.8); ABS Monocytes 1.4 10^3/ul (0-0.8); ABS Neutrophils 26.1 10^3/ul (1.5-7.7); Lymphocyte % 4.4 %
[2020-09-20] MEDS ORDERED: Magnesium Sulfate 2 gm BAG 2 GM/50 ML BAG IVPB ONE (05:18)
[2020-09-20] MEDS: KCL 20 MEQ/100 ML IVPREMIX 20 MEQ/100 ML BAG IV SCH ×2 (05:40→07:42)
[2020-09-20] MEDS: Pantoprazole VIAL 40 MG VIAL IV SCH ×2 (07:40→19:55)
[2020-09-20] MEDS ORDERED: HYDROmorphone 1 MG/1 ML SYRINGE IV SLOW PU PRN (07:51)
[2020-09-20] MEDS ORDERED: oxyCODONE 5 mg/5 ml ORAL.SOLN UDC PO PRN (08:16)
[2020-09-20] MEDS ORDERED: HYDROmorphone 0.5 MG/0.5 ML SYRINGE IV SLOW PU PRN (10:24)
[2020-09-20] MEDS: DULoxetine DR 20 mg CAP PO SCH (10:46)
[2020-09-20] MEDS: NORMOSOL-R pH 7.4 1000 mL BAG 1,000 ML IV SCH ×2 (11:11→18:46)
[2020-09-20] MEDS: Multivitamins/Minerals TAB PO SCH (11:50)
[2020-09-20] MEDS: Acetaminophen IV 1 GM/100ML 100 ML IVPB SCH ×2 (12:04→19:59)
[2020-09-20] MEDS: Simethicone SUSP ORALSYR 66.66 MG/ML PO SCH ×2 (14:37→20:02)
[2020-09-20] MEDS: TPN 24 HR with Dextrose 50% Water 500 ML, Amino Acid Infusion 10% 850 ML, Sterile Water... CENTR SCH (17:05)
[2020-09-20] MEDS: HYDROmorphone 0.5 MG/0.5 ML SYRINGE IV SLOW PU PRN ×2 (17:18→22:15)
[2020-09-21] MEDS: Ondansetron 4 mg VIAL 2 MG/ML 2 ml VIAL IV PRN ×3 (00:28→14:52)
[2020-09-21] MEDS: ZOSYN 3.375 GM Q8H per EXTENDED INFUSION IV SCH ×3 (00:28→15:51)
[2020-09-21] MEDS: HYDROmorphone 0.5 MG/0.5 ML SYRINGE IV SLOW PU PRN ×6 (01:11→20:43)
[2020-09-21] MEDS: Acetaminophen IV 1 GM/100ML 100 ML IVPB SCH (04:05)
[2020-09-21] MEDS: Heparin 5000 UNITS/ML 1 mL VIAL SUBCUT SCH ×3 (04:20→21:05)
[2020-09-21] MEDS: NORMOSOL-R pH 7.4 1000 mL BAG 1,000 ML IV SCH ×2 (04:29→13:09)
[2020-09-21 04:42] LABS: Hematocrit 25 % (42-52); Hemoglobin 8.5 g/dL (14.0-18.0); Mean Corpuscular HGB Conc 34 g/dL (31-36); Mean Corpuscular Hemoglobin 34 pg (27-31); Mean Corpuscular Volume 99 fL (80-94); Mean Platelet Volume 7.6 fL (7.4-10.4); Platelet Count 456 10^3/uL (150-450); Red Blood Count 2.52 10^6 /uL (4.18-5.48); Red Cell Distribution Width 15 % (10-15)
[2020-09-21 05:03] LABS: Albumin 1.6 g/dL (3.2-5.2); Calcium 7.7 mg/dL (8.6-10.3); Magnesium 1.3 mg/dL (1.9-2.7); Total Bilirubin 0.6 mg/dL (0.2-1.0)
[2020-09-21 05:09] LABS: Albumin/Globulin Ratio 0.8 (1-3); EGFR African American 281.7 (>60); EGFR Non-African American 232.8 (>60); Phosphorus 1.9 mg/dL (2.5-5.0); Total Protein 3.6 g/dL (6.4-8.9)
[2020-09-21 05:36] LABS: Polychromasia 1+
[2020-09-21 05:37] LABS: ABS Basophils 0.3 10^3/ul (0-0.2); ABS Eosinophils 0.4 10^3/ul (0-0.6); ABS Lymphocytes 1.6 10^3/ul (1.0-4.8); ABS Monocytes 1.8 10^3/ul (0-0.8); ABS Neutrophils 19.9 10^3/ul (1.5-7.7); Eosinophil % 1.6 %; Lymphocyte % 6.5 %
[2020-09-21] MEDS ORDERED: Potassium Phosphate IV 15 MMOLE in NS 0.9% 250 ml 250 ML IVPB ONE (07:14)
[2020-09-21] MEDS: Pantoprazole VIAL 40 MG VIAL IV SCH ×2 (07:31→21:05)
[2020-09-21] MEDS: Simethicone SUSP ORALSYR 66.66 MG/ML PO SCH ×2 (07:47→21:13)
[2020-09-21] MEDS: DULoxetine DR 20 mg CAP PO SCH (07:47)
[2020-09-21] MEDS: Thiamine 100 MG/ML 2 ml VIAL 100 MG in NS 0.9% 50 ML 50 ML IV SCH (08:39)
[2020-09-21] MEDS ORDERED: TPN 24 HR with Dextrose 50% Water 500 ML, Amino Acid Infusion 10% 850 ML, Sterile Water... CENTR SCH (17:00)
[2020-09-22] MEDS: ZOSYN 3.375 GM Q8H per EXTENDED INFUSION IV SCH ×3 (00:09→16:53)
[2020-09-22] MEDS: HYDROmorphone 0.5 MG/0.5 ML SYRINGE IV SLOW PU PRN ×2 (02:08→06:30)
[2020-09-22] MEDS: NORMOSOL-R pH 7.4 1000 mL BAG 1,000 ML IV SCH ×2 (04:04→11:45)
[2020-09-22] MEDS: Heparin 5000 UNITS/ML 1 mL VIAL SUBCUT SCH ×3 (04:09→21:32)
[2020-09-22 04:29] LABS: Hematocrit 25 % (42-52); Hemoglobin 8.4 g/dL (14.0-18.0); Mean Corpuscular HGB Conc 34 g/dL (31-36); Mean Corpuscular Hemoglobin 34 pg (27-31); Mean Corpuscular Volume 100 fL (80-94); Mean Platelet Volume 7.6 fL (7.4-10.4); Platelet Count 493 10^3/uL (150-450); Red Blood Count 2.52 10^6 /uL (4.18-5.48); Red Cell Distribution Width 16 % (10-15); White Blood Count 21.8 10^3/uL (3.5-10.8)
[2020-09-22 04:49] LABS: Albumin 1.6 g/dL (3.2-5.2); Albumin/Globulin Ratio 0.7 (1-3); Calcium 7.7 mg/dL (8.6-10.3); EGFR African American 281.7 (>60); EGFR Non-African American 232.8 (>60); Globulin 2.4 g/dL (2-4); Magnesium 1.3 mg/dL (1.9-2.7); Phosphorus 2.3 mg/dL (2.5-5.0); Potassium 4.1 mmol/L (3.5-5.0); Total Bilirubin 0.6 mg/dL (0.2-1.0)
[2020-09-22] MEDS ORDERED: Magnesium Sulfate IV 3 GM in NS 0.9% 100 ml BAG 100 ML IVPB ONE (06:05)
[2020-09-22] MEDS ORDERED: Potassium Phosphate IV 15 MMOLE in NS 0.9% 250 ml 250 ML IVPB ONE ×2 (07:42→08:45)
[2020-09-22] MEDS: Pantoprazole VIAL 40 MG VIAL IV SCH ×2 (08:17→21:32)
[2020-09-22] MEDS: Thiamine 100 MG/ML 2 ml VIAL 100 MG in NS 0.9% 50 ML 50 ML IV SCH (08:17)
[2020-09-22] MEDS: DULoxetine DR 20 mg CAP PO SCH (08:18)
[2020-09-22] MEDS ORDERED: Lactated Ringers 1000 ml BAG 1,000 ML IV SCH (16:00)
[2020-09-22] MEDS: TPN 24 HR with Dextrose 50% Water 500 ML, Amino Acid Infusion 10% 850 ML, Sterile Water... CENTR SCH (16:51)
[2020-09-23] MEDS: ZOSYN 3.375 GM Q8H per EXTENDED INFUSION IV SCH ×3 (00:33→17:20)
[2020-09-23] MEDS: Heparin 5000 UNITS/ML 1 mL VIAL SUBCUT SCH ×3 (05:00→21:00)
[2020-09-23 05:41] LABS: INR 1.41 (0.82-1.09)
[2020-09-23 05:55] LABS: Albumin 1.8 g/dL (3.2-5.2); Albumin/Globulin Ratio 0.6 (1-3); Calcium 7.7 mg/dL (8.6-10.3); EGFR African American 244.3 (>60); EGFR Non-African American 201.9 (>60); Globulin 2.9 g/dL (2-4); Potassium 3.6 mmol/L (3.5-5.0); Total Bilirubin 0.5 mg/dL (0.2-1.0); Total Protein 4.7 g/dL (6.4-8.9)
[2020-09-23 07:31] LABS: Hematocrit 25 % (42-52); Hemoglobin 8.5 g/dL (14.0-18.0); Mean Corpuscular HGB Conc 34 g/dL (31-36); Mean Corpuscular Hemoglobin 34 pg (27-31); Mean Corpuscular Volume 100 fL (80-94); Mean Platelet Volume 7.8 fL (7.4-10.4); Platelet Count 475 10^3/uL (150-450); Red Blood Count 2.55 10^6 /uL (4.18-5.48); Red Cell Distribution Width 15 % (10-15); White Blood Count 18.2 10^3/uL (3.5-10.8)
[2020-09-23] MEDS: Thiamine 100 MG/ML 2 ml VIAL 100 MG in NS 0.9% 50 ML 50 ML IV SCH (07:58)
[2020-09-23] MEDS: Pantoprazole VIAL 40 MG VIAL IV SCH ×2 (07:58→20:59)
[2020-09-23] MEDS: DULoxetine DR 20 mg CAP PO SCH (07:58)
[2020-09-23] MEDS: HYDROmorphone 0.5 MG/0.5 ML SYRINGE IV SLOW PU PRN ×4 (07:59→21:07)
[2020-09-23 08:09] LABS: ABS Eosinophils 0.4 10^3/ul (0-0.6); ABS Lymphocytes 1.7 10^3/ul (1.0-4.8); ABS Monocytes 1.9 10^3/ul (0-0.8); ABS Neutrophils 14.2 10^3/ul (1.5-7.7); Eosinophil % 2.2 %; Lymphocyte % 9.2 %; Nucleated Red Blood Cells % 0.2
[2020-09-23 12:03] LABS: Magnesium 1.5 mg/dL (1.9-2.7)
[2020-09-23] MEDS ORDERED: Magnesium Sulfate IV 3 GM in NS 0.9% 100 ml BAG 100 ML IVPB ONE (13:42)
[2020-09-23] MEDS ORDERED: Magnesium Sulfate 2 gm BAG 2 GM/50 ML BAG IVPB ONE (15:58)
[2020-09-23] MEDS: TPN 24 HR with Dextrose 50% Water 500 ML, Amino Acid Infusion 10% 850 ML, Sterile Water... CENTR SCH (17:13)
[2020-09-24] MEDS: ZOSYN 3.375 GM Q8H per EXTENDED INFUSION IV SCH ×3 (00:13→17:14)
[2020-09-24] MEDS: HYDROmorphone 0.5 MG/0.5 ML SYRINGE IV SLOW PU PRN ×7 (01:11→22:29)
[2020-09-24] MEDS: Heparin 5000 UNITS/ML 1 mL VIAL SUBCUT SCH ×3 (05:58→21:35)
[2020-09-24 06:11] LABS: Hematocrit 23 % (42-52); Hemoglobin 7.9 g/dL (14.0-18.0); Mean Corpuscular HGB Conc 34 g/dL (31-36); Mean Corpuscular Hemoglobin 34 pg (27-31); Mean Corpuscular Volume 100 fL (80-94); Mean Platelet Volume 7.4 fL (7.4-10.4); Platelet Count 470 10^3/uL (150-450); Red Blood Count 2.33 10^6 /uL (4.18-5.48); Red Cell Distribution Width 15 % (10-15); White Blood Count 17.4 10^3/uL (3.5-10.8)
[2020-09-24 06:42] LABS: Albumin 1.8 g/dL (3.2-5.2); Albumin/Globulin Ratio 0.6 (1-3); Calcium 7.6 mg/dL (8.6-10.3); EGFR African American 237.9 (>60); EGFR Non-African American 196.6 (>60); Globulin 3.2 g/dL (2-4); Magnesium 1.7 mg/dL (1.9-2.7); Potassium 3.9 mmol/L (3.5-5.0); Total Bilirubin 0.5 mg/dL (0.2-1.0)
[2020-09-24] MEDS ORDERED: Magnesium Sulfate IV 3 GM in NS 0.9% 100 ml BAG 100 ML IVPB ONE (08:30)
[2020-09-24 08:40] LABS: ABS Basophils 0.1 10^3/ul (0-0.2); ABS Eosinophils 0.4 10^3/ul (0-0.6); ABS Lymphocytes 1.6 10^3/ul (1.0-4.8); ABS Monocytes 2.4 10^3/ul (0-0.8); Eosinophil % 2.4 %
[2020-09-24] MEDS ORDERED: Thiamine 100 MG/ML 2 ml VIAL (200 mg) ONE (08:56)
[2020-09-24] MEDS ORDERED: NS 0.9% 100 ml BAG 100 ML ONE (08:58)
[2020-09-24] MEDS: DULoxetine DR 20 mg CAP PO SCH (09:13)
[2020-09-24] MEDS: Pantoprazole VIAL 40 MG VIAL IV SCH ×2 (09:31→19:29)
[2020-09-24] MEDS: Thiamine 100 MG/ML 2 ml VIAL 100 MG in NS 0.9% 50 ML 50 ML IV SCH (11:03)
[2020-09-24] MEDS ORDERED: Lactated Ringers 1000 ml BAG 1,000 ML IV ONE (12:56)
[2020-09-24] MEDS ORDERED: Lactated Ringers 1000 ml BAG 1,000 ML IV SCH (13:00)
[2020-09-24] MEDS: TPN 24 HR with Dextrose 50% Water 500 ML, Amino Acid Infusion 10% 850 ML, Sterile Water... CENTR SCH (17:22)
[2020-09-24] MEDS: Lactated Ringers 1000 ml BAG 1,000 ML IV SCH (22:41)
[2020-09-25] MEDS: ZOSYN 3.375 GM Q8H per EXTENDED INFUSION IV SCH ×3 (00:26→17:54)
[2020-09-25] MEDS: HYDROmorphone 0.5 MG/0.5 ML SYRINGE IV SLOW PU PRN ×7 (04:04→23:46)
[2020-09-25 05:05] LABS: Hematocrit 19 % (42-52); Hemoglobin 6.3 g/dL (14.0-18.0); Mean Corpuscular HGB Conc 33 g/dL (31-36); Mean Corpuscular Hemoglobin 33 pg (27-31); Mean Corpuscular Volume 100 fL (80-94); Mean Platelet Volume 7.6 fL (7.4-10.4); Platelet Count 369 10^3/uL (150-450); Red Blood Count 1.88 10^6 /uL (4.18-5.48); Red Cell Distribution Width 16 % (10-15); White Blood Count 14.3 10^3/uL (3.5-10.8)
[2020-09-25 05:29] LABS: Albumin 1.6 g/dL (3.2-5.2); Albumin/Globulin Ratio 0.6 (1-3); Calcium 7.3 mg/dL (8.6-10.3); EGFR African American 273.4 (>60); EGFR Non-African American 225.9 (>60); Globulin 2.8 g/dL (2-4); Phosphorus 3.4 mg/dL (2.5-5.0); Potassium 4.2 mmol/L (3.5-5.0); Total Bilirubin 0.4 mg/dL (0.2-1.0); Total Protein 4.4 g/dL (6.4-8.9)
[2020-09-25 06:03] LABS: ABS Eosinophils 0.3 10^3/ul (0-0.6); ABS Lymphocytes 1.3 10^3/ul (1.0-4.8); ABS Monocytes 1.9 10^3/ul (0-0.8); ABS Neutrophils 10.8 10^3/ul (1.5-7.7); Eosinophil % 2.1 %
[2020-09-25] MEDS: Lactated Ringers 1000 ml BAG 1,000 ML IV SCH (06:10)
[2020-09-25 07:25] LABS: Total Iron Binding Capacity 120 mcg/dL (250-450); Transferrin 86 mg/dL (203-362)
[2020-09-25 07:47] LABS: Ferritin 533.4 ng/mL (24-336)
[2020-09-25 07:51] LABS: Folate 11.11 ng/mL (5.90-24.80)
[2020-09-25 07:52] LABS: Vitamin B12 1313 pg/mL (180-914)
[2020-09-25] MEDS: Pantoprazole VIAL 40 MG VIAL IV SCH ×2 (07:58→20:58)
[2020-09-25] MEDS ORDERED: Thiamine 100 MG/ML 2 ml VIAL 100 MG in NS 0.9% 50 ML 50 ML IV SCH (09:00)
[2020-09-25] MEDS: DULoxetine DR 20 mg CAP PO SCH (09:20)
[2020-09-25 14:45] LABS: Hematocrit 28 % (42-52); Hemoglobin 9.4 g/dL (14.0-18.0)
[2020-09-25 15:17] LABS: % Iron Saturation 15 % (15-55); Iron 20 ug/dL (50-212); Total Iron Binding Capacity 133 mcg/dL (250-450); Transferrin 95 mg/dL (203-362); Unsaturated Iron Binding < 118 ug/dL
[2020-09-25] MEDS: Iohexol 300 (CONTRAST) 10 ML SDV IV ONE ×2 (16:20→16:52)
[2020-09-25] MEDS ORDERED: TPN CENTRAL STANDARD BASE B CENT\\PICC SCH (17:00)
[2020-09-25] MEDS: Thiamine 100 MG/ML 2 ml VIAL 100 MG in NS 0.9% 50 ML 50 ML IV SCH (17:24)
[2020-09-25] MEDS: ZOSYN 3.375 GM Q6H IV SCH ×2 (17:49→23:52)
[2020-09-25] MEDS ORDERED: Lactated Ringers 1000 ml BAG 1,000 ML IV SCH ×2 (18:00)
[2020-09-25 21:34] LABS: Anion Gap 5 mmol/L (2-11); Blood Urea Nitrogen 9 mg/dL (6-24); C Reactive Protein 191.49 mg/L (<8.01); CO2 Carbon Dioxide 22 mmol/L (22-32); Calcium 7.9 mg/dL (8.6-10.3); Chloride 103 mmol/L (101-111); EGFR African American 200.6 (>60); EGFR Non-African American 165.8 (>60); Glucose 93 mg/dL (70-100); Magnesium 1.5 mg/dL (1.9-2.7); Potassium 4.4 mmol/L (3.5-5.0); Sodium 130 mmol/L (135-145)
[2020-09-26] MEDS ORDERED: Furosemide 40 mg/4 ml IV VIAL IV ONE (00:33)
[2020-09-26 00:53] LABS: Hematocrit 28 % (42-52); Hemoglobin 9.8 g/dL (14.0-18.0)
[2020-09-26] MEDS: Ondansetron 4 mg VIAL 2 MG/ML 2 ml VIAL IV PRN ×2 (00:53→16:02)
[2020-09-26] MEDS: HYDROmorphone 0.5 MG/0.5 ML SYRINGE IV SLOW PU PRN ×5 (04:28→23:00)
[2020-09-26] MEDS: ZOSYN 3.375 GM Q6H IV SCH ×2 (05:44→13:30)
[2020-09-26 06:32] LABS: Hematocrit 29 % (42-52); Hemoglobin 9.8 g/dL (14.0-18.0); Mean Corpuscular HGB Conc 34 g/dL (31-36); Mean Corpuscular Hemoglobin 32 pg (27-31); Mean Corpuscular Volume 95 fL (80-94); Mean Platelet Volume 7.5 fL (7.4-10.4); Platelet Count 442 10^3/uL (150-450); Red Blood Count 3.05 10^6 /uL (4.18-5.48); Red Cell Distribution Width 17 % (10-15)
[2020-09-26 06:33] LABS: Hematocrit 29 % (42-52); Hemoglobin 9.7 g/dL (14.0-18.0)
[2020-09-26 06:48] LABS: Calcium 8.1 mg/dL (8.6-10.3); EGFR African American 160.1 (>60); EGFR Non-African American 132.3 (>60)
[2020-09-26 07:07] LABS: ABS Basophils 0.1 10^3/ul (0-0.2); ABS Eosinophils 0.3 10^3/ul (0-0.6); ABS Lymphocytes 1.4 10^3/ul (1.0-4.8); ABS Monocytes 2.4 10^3/ul (0-0.8); Eosinophil % 1.4 %; Lymphocyte % 7.1 %; Polychromasia 1+
[2020-09-26] MEDS: Pantoprazole VIAL 40 MG VIAL IV SCH ×2 (08:38→20:30)
[2020-09-26] MEDS: DULoxetine DR 20 mg CAP PO SCH ×2 (08:41→10:56)
[2020-09-26] MEDS ORDERED: [UNRECOGNIZED DRUG - OTHER] CENT\\PICC SCH ×2 (10:50→17:01)
[2020-09-26] MEDS ORDERED: TPN CENT\\PICC SCH ×2 (10:50→17:01)
[2020-09-26] MEDS ORDERED: SODIUM CHLORIDE CENT\\PICC SCH ×2 (10:50→17:01)
[2020-09-26] MEDS ORDERED: POTASSIUM CHLORIDE TPN CENT\\PICC SCH ×2 (10:50→17:01)
[2020-09-26 12:06] LABS: Magnesium 1.3 mg/dL (1.9-2.7); Phosphorus 4.8 mg/dL (2.5-5.0)
[2020-09-26] MEDS ORDERED: fentaNYL 100 mcg/2 ml 50 MCG/ML VIAL ONE (13:21)
[2020-09-26] MEDS ORDERED: Magnesium Sulfate IV 3 GM in NS 0.9% 100 ml BAG 100 ML IVPB ONE (15:15)
[2020-09-26] MEDS ORDERED: Vancomycin per Pharmacy 1 EA NOTE FOLLOW UP SCH (18:00)
[2020-09-26] MEDS: Cefepime 2 GM in Dextrose 2 GM/50 ML BAG IV SCH (18:28)
[2020-09-26] MEDS ORDERED: Vancomycin 1,500 MG in NS 0.9% 250 ml 250 ML IVPB ONE (18:30)
[2020-09-26] MEDS: Thiamine 100 MG/ML 2 ml VIAL 100 MG in NS 0.9% 50 ML 50 ML IV SCH (18:41)
[2020-09-27] MEDS: HYDROmorphone 0.5 MG/0.5 ML SYRINGE IV SLOW PU PRN ×5 (03:12→20:38)
[2020-09-27] MEDS: Cefepime 2 GM in Dextrose 2 GM/50 ML BAG IV SCH ×2 (05:53→17:22)
[2020-09-27 05:58] LABS: Hematocrit 28 % (42-52); Hemoglobin 9.3 g/dL (14.0-18.0); Mean Corpuscular HGB Conc 33 g/dL (31-36); Mean Corpuscular Hemoglobin 33 pg (27-31); Mean Corpuscular Volume 98 fL (80-94); Mean Platelet Volume 7.6 fL (7.4-10.4); Platelet Count 432 10^3/uL (150-450); Red Blood Count 2.86 10^6 /uL (4.18-5.48); Red Cell Distribution Width 16 % (10-15); White Blood Count 15.8 10^3/uL (3.5-10.8)
[2020-09-27 06:15] LABS: ABS Eosinophils 0.3 10^3/ul (0-0.6); ABS Lymphocytes 1.2 10^3/ul (1.0-4.8); ABS Monocytes 1.9 10^3/ul (0-0.8); ABS Neutrophils 12.5 10^3/ul (1.5-7.7); Albumin 1.9 g/dL (3.2-5.2); Albumin/Globulin Ratio 0.5 (1-3); Calcium 8.2 mg/dL (8.6-10.3); EGFR African American 187.8 (>60); EGFR Non-African American 155.2 (>60); Eosinophil % 1.9 %; Lymphocyte % 7.3 %; Magnesium 1.7 mg/dL (1.9-2.7); Potassium 4.4 mmol/L (3.5-5.0); Total Bilirubin 0.5 mg/dL (0.2-1.0); Total Protein 5.9 g/dL (6.4-8.9)
[2020-09-27] MEDS: Vancomycin 1,500 MG in NS 0.9% 250 ml 250 ML IVPB SCH ×2 (06:34→17:59)
[2020-09-27] MEDS ORDERED: Magnesium Sulfate IV 3 GM in NS 0.9% 100 ml BAG 100 ML IVPB ONE (07:06)
[2020-09-27] MEDS ORDERED: Lactated Ringers 1000 ml BAG 1,000 ML IV ONE (07:06)
[2020-09-27] MEDS: Ondansetron 4 mg VIAL 2 MG/ML 2 ml VIAL IV PRN (07:44)
[2020-09-27] MEDS: Pantoprazole VIAL 40 MG VIAL IV SCH ×2 (07:44→20:37)
[2020-09-27] MEDS: DULoxetine DR 20 mg CAP PO SCH (07:44)
[2020-09-27] MEDS: Thiamine 100 MG/ML 2 ml VIAL 100 MG in NS 0.9% 50 ML 50 ML IV SCH (15:47)
[2020-09-27] MEDS: POTASSIUM CHLORIDE TPN CENT\\PICC SCH (17:22)
[2020-09-27] MEDS: TPN CENT\\PICC SCH (17:22)
[2020-09-27] MEDS: [UNRECOGNIZED DRUG - OTHER] CENT\\PICC SCH (17:22)
[2020-09-27] MEDS: SODIUM CHLORIDE CENT\\PICC SCH (17:22)
[2020-09-28] MEDS: HYDROmorphone 0.5 MG/0.5 ML SYRINGE IV SLOW PU PRN ×5 (00:46→20:42)
[2020-09-28] MEDS ORDERED: Vancomycin Trough Check NOTE FOLLOW UP ONE (05:30)
[2020-09-28] MEDS: Cefepime 2 GM in Dextrose 2 GM/50 ML BAG IV SCH (06:43)
[2020-09-28 06:51] LABS: Hematocrit 25 % (42-52); Hemoglobin 8.9 g/dL (14.0-18.0); Mean Corpuscular HGB Conc 35 g/dL (31-36); Mean Corpuscular Hemoglobin 34 pg (27-31); Mean Corpuscular Volume 96 fL (80-94); Mean Platelet Volume 7.5 fL (7.4-10.4); Platelet Count 466 10^3/uL (150-450); Red Blood Count 2.63 10^6 /uL (4.18-5.48); Red Cell Distribution Width 16 % (10-15); White Blood Count 16.2 10^3/uL (3.5-10.8)
[2020-09-28 07:01] LABS: Albumin/Globulin Ratio 0.5 (1-3); Calcium 8.2 mg/dL (8.6-10.3); EGFR Non-African American 123.1 (>60); Potassium 4.9 mmol/L (3.5-5.0); Total Bilirubin 0.5 mg/dL (0.2-1.0)
[2020-09-28 07:22] LABS: Vancomycin Trough 17.3 mcg/mL
[2020-09-28 07:25] LABS: ABS Eosinophils 0.3 10^3/ul (0-0.6); ABS Lymphocytes 1.1 10^3/ul (1.0-4.8); ABS Monocytes 2.1 10^3/ul (0-0.8); ABS Neutrophils 12.7 10^3/ul (1.5-7.7); Eosinophil % 1.8 %; Lymphocyte % 6.9 %
[2020-09-28] MEDS: Vancomycin 1,500 MG in NS 0.9% 250 ml 250 ML IVPB SCH (07:56)
[2020-09-28] MEDS: Pantoprazole VIAL 40 MG VIAL IV SCH ×2 (07:56→20:42)
[2020-09-28] MEDS: DULoxetine DR 20 mg CAP PO SCH (07:57)
[2020-09-28 08:22] LABS: C Reactive Protein 142.42 mg/L (<8.01)
[2020-09-28] MEDS ORDERED: Zosyn per Pharmacy NOTE FOLLOW UP SCH (14:00)
[2020-09-28] MEDS ORDERED: ZOSYN 3.375 GM x ONE DOSE over 30 miuntes IV (14:30)
[2020-09-28] MEDS ORDERED: Thiamine 100 MG/ML 2 ml VIAL (200 mg) ONE (15:03)
[2020-09-28] MEDS: SODIUM CHLORIDE CENT\\PICC SCH (16:19)
[2020-09-28] MEDS: Thiamine 100 MG/ML 2 ml VIAL 100 MG in NS 0.9% 50 ML 50 ML IV SCH (16:19)
[2020-09-28] MEDS: [UNRECOGNIZED DRUG - OTHER] CENT\\PICC SCH (16:19)
[2020-09-28] MEDS: POTASSIUM CHLORIDE TPN CENT\\PICC SCH (16:19)
[2020-09-28] MEDS: TPN CENT\\PICC SCH (16:19)
[2020-09-28] MEDS: ZOSYN 3.375 GM Q8H per EXTENDED INFUSION IV SCH (19:38)
[2020-09-28] MEDS: Ondansetron 4 mg VIAL 2 MG/ML 2 ml VIAL IV PRN (21:05)
[2020-09-28 23:42] LABS: Hematocrit 24 % (42-52); Hemoglobin 8.8 g/dL (14.0-18.0)
[2020-09-28] MEDS ORDERED: Lactated Ringers 500 ml BAG 500 ML IV SCH (23:45)
[2020-09-29 03:06] LABS: Hematocrit 29 % (42-52); Hemoglobin 9.5 g/dL (14.0-18.0); Mean Corpuscular HGB Conc 33 g/dL (31-36); Mean Corpuscular Hemoglobin 32 pg (27-31); Mean Corpuscular Volume 96 fL (80-94); Mean Platelet Volume 7.4 fL (7.4-10.4); Platelet Count 533 10^3/uL (150-450); Red Blood Count 2.99 10^6 /uL (4.18-5.48); Red Cell Distribution Width 16 % (10-15); White Blood Count 26.9 10^3/uL (3.5-10.8)
[2020-09-29 03:18] LABS: Calcium 8.4 mg/dL (8.6-10.3); EGFR African American 139.2 (>60); Magnesium 1.2 mg/dL (1.9-2.7); Phosphorus 3.9 mg/dL (2.5-5.0)
[2020-09-29 03:22] LABS: Potassium 5.1 mmol/L (3.5-5.0)
[2020-09-29] MEDS: HYDROmorphone 0.5 MG/0.5 ML SYRINGE IV SLOW PU PRN ×3 (03:40→22:17)
[2020-09-29] MEDS: ZOSYN 3.375 GM Q8H per EXTENDED INFUSION IV SCH ×3 (03:47→22:17)
[2020-09-29] MEDS ORDERED: Magnesium Sulf 4 GM/100 ML IV 4,000 MG/100 ML BAG IVPB ONE (03:51)
[2020-09-29] MEDS ORDERED: NS 0.9% 1000 ml BAG 1,000 ML IV SCH (04:00)
[2020-09-29] MEDS ORDERED: Lactated Ringers 500 ml BAG 500 ML IV SCH (04:00)
[2020-09-29] MEDS ORDERED: Lactated Ringers 1000 ml BAG 1,000 ML IV SCH (04:00)
[2020-09-29 05:08] LABS: ABS Eosinophils 0.2 10^3/ul (0-0.6); ABS Lymphocytes 0.8 10^3/ul (1.0-4.8); ABS Monocytes 1.1 10^3/ul (0-0.8); ABS Neutrophils 24.8 10^3/ul (1.5-7.7); Eosinophil % 0.6 %; Lymphocyte % 2.8 %
[2020-09-29 05:13] LABS: C Reactive Protein 124.84 mg/L (<8.01)
[2020-09-29 05:29] LABS: Troponin I 0.02 ng/mL (<0.03)
[2020-09-29] MEDS ORDERED: Iohexol 300 (CONTRAST) 10 ML SDV IV ONE (05:31)
[2020-09-29 06:02] LABS: Erythrocyte Sed Rate > 120 mm/Hr (0-19)
[2020-09-29 07:20] LABS: Hematocrit 25 % (42-52); Hemoglobin 8.3 g/dL (14.0-18.0); Mean Corpuscular HGB Conc 33 g/dL (31-36); Mean Corpuscular Hemoglobin 32 pg (27-31); Mean Corpuscular Volume 96 fL (80-94); Mean Platelet Volume 7.2 fL (7.4-10.4); Platelet Count 440 10^3/uL (150-450); Red Blood Count 2.59 10^6 /uL (4.18-5.48); Red Cell Distribution Width 16 % (10-15); White Blood Count 34.3 10^3/uL (3.5-10.8)
[2020-09-29 07:32] LABS: Calcium 8.1 mg/dL (8.6-10.3); EGFR African American 124.7 (>60); EGFR Non-African American 103.1 (>60)
[2020-09-29] MEDS: Pantoprazole VIAL 40 MG VIAL IV SCH ×2 (07:47→23:35)
[2020-09-29 07:51] LABS: ABS Basophils 0.1 10^3/ul (0-0.2); ABS Lymphocytes 0.8 10^3/ul (1.0-4.8); ABS Monocytes 1.3 10^3/ul (0-0.8); ABS Neutrophils 32.1 10^3/ul (1.5-7.7); Eosinophil % 0.1 %; Lymphocyte % 2.3 %
[2020-09-29] MEDS: DULoxetine DR 20 mg CAP PO SCH (08:09)
[2020-09-29 10:40] LABS: INR 1.52 (0.82-1.09)
[2020-09-29] MEDS ORDERED: diPHENhydraMINE IV 50 MG/ML 1 ml VIAL (BENADRYL) IV ONE (11:16)
[2020-09-29 11:46] LABS: Albumin 1.9 g/dL (3.2-5.2); Albumin/Globulin Ratio 0.5 (1-3); Globulin 3.7 g/dL (2-4); Magnesium 2.2 mg/dL (1.9-2.7); Phosphorus 3.7 mg/dL (2.5-5.0); Total Bilirubin 0.7 mg/dL (0.2-1.0); Total Protein 5.6 g/dL (6.4-8.9)
[2020-09-29] MEDS: NORMOSOL-R pH 7.4 1000 mL BAG 1,000 ML IV SCH ×2 (11:53→19:00)
[2020-09-29] MEDS: Thiamine 100 MG/ML 2 ml VIAL 100 MG in NS 0.9% 50 ML 50 ML IV SCH (15:56)
[2020-09-29 17:54] LABS: Urine Appearance Clear; Urine Bilirubin Negative (Negative); Urine Blood 2+ (Negative); Urine Color Straw; Urine Glucose Negative (Negative); Urine Ketones Negative (Negative); Urine Nitrite Negative (Negative); Urine Protein Negative (Negative); Urine Specific Gravity 1.011 (1.002-1.030); Urine Urobilinogen Negative (Negative)
[2020-09-29 17:57] LABS: Urine Bacteria 1+ (Absent); Urine Red Blood Cell 2+(6-10/hpf) (Absent); Urine White Blood Cell Trace(0-5/hpf) (Absent)
[2020-09-29] MEDS ORDERED: Etomidate 20 mg/10 ml 2 MG/ML 10 ml VIAL ONE (18:48)
[2020-09-29] MEDS ORDERED: Succinylcholine 200 mg VIAL 20 mg/ml 10 ml VIAL (200 mg) ONE (18:48)
[2020-09-29] MEDS ORDERED: Lidocaine 2% PF 5 ML VIAL ONE (18:49)
[2020-09-29] MEDS ORDERED: fentaNYL 100 mcg/2 ml 50 MCG/ML VIAL ONE ×3 (18:50→21:31)
[2020-09-29] MEDS ORDERED: Midazolam 2 mg/2 ml VIAL 1 mg/ml 2 ml VIAL (2 mg) ONE ×2 (18:50→21:31)
[2020-09-29] MEDS ORDERED: Rocuronium 50 mg VIAL 10 mg/ml 5 ml VIAL (50 mg) ONE (20:28)
[2020-09-29] MEDS ORDERED: Phenylephrine 40 mcg/mL 10mL (400mcg) SYRINGE ONE (20:42)
[2020-09-29] MEDS ORDERED: Phenylephrine IV 10 MG/ML 1 ml VIAL ONE (20:43)
[2020-09-29] MEDS ORDERED: Propofol 10 mg/ml 100 ML BTL 100 ML ONE (21:52)
[2020-09-29] MEDS: Propofol 10 mg/ml 100 ML BTL 100 ML IV SCH (22:12)
[2020-09-30] MEDS: SODIUM CHLORIDE CENT\\PICC SCH ×2 (00:23→17:19)
[2020-09-30] MEDS: TPN CENT\\PICC SCH ×2 (00:23→17:19)
[2020-09-30] MEDS: [UNRECOGNIZED DRUG - OTHER] CENT\\PICC SCH ×2 (00:23→17:19)
[2020-09-30] MEDS: POTASSIUM CHLORIDE TPN CENT\\PICC SCH ×2 (00:23→17:19)
[2020-09-30 00:27] LABS: Activated Partial Thrombo Time 28.8 seconds (26.0-38.0); INR 1.61 (0.82-1.09)
[2020-09-30] MEDS: Propofol 10 mg/ml 100 ML BTL 100 ML IV SCH ×4 (03:14→20:36)
[2020-09-30] MEDS: ZOSYN 3.375 GM Q8H per EXTENDED INFUSION IV SCH ×4 (03:15→21:58)
[2020-09-30] MEDS: Chlorhexidine MOUTHWASH 0.12% 15 ML UDC TOPICAL SCH ×5 (04:48→20:42)
[2020-09-30 05:18] LABS: Hematocrit 24 % (42-52); Hemoglobin 8.1 g/dL (14.0-18.0); Mean Corpuscular HGB Conc 33 g/dL (31-36); Mean Corpuscular Hemoglobin 32 pg (27-31); Mean Corpuscular Volume 95 fL (80-94); Mean Platelet Volume 7.3 fL (7.4-10.4); Platelet Count 439 10^3/uL (150-450); Red Blood Count 2.57 10^6 /uL (4.18-5.48); Red Cell Distribution Width 16 % (10-15); White Blood Count 19.2 10^3/uL (3.5-10.8)
[2020-09-30 05:25] LABS: INR 1.61 (0.82-1.09)
[2020-09-30 05:35] LABS: Calcium 7.9 mg/dL (8.6-10.3); EGFR African American 157.2 (>60); EGFR Non-African American 129.9 (>60); Potassium 4.3 mmol/L (3.5-5.0)
[2020-09-30] MEDS: NORMOSOL-R pH 7.4 1000 mL BAG 1,000 ML IV SCH ×3 (05:55→22:30)
[2020-09-30] MEDS: Heparin 5000 UNITS/ML 1 mL VIAL SUBCUT SCH ×3 (06:02→21:58)
[2020-09-30 06:09] LABS: ABS Basophils 0.1 10^3/ul (0-0.2); ABS Eosinophils 0.3 10^3/ul (0-0.6); ABS Lymphocytes 1.1 10^3/ul (1.0-4.8); ABS Monocytes 1.6 10^3/ul (0-0.8); ABS Neutrophils 16.1 10^3/ul (1.5-7.7); Eosinophil % 1.5 %
[2020-09-30 07:58] LABS: Magnesium 1.7 mg/dL (1.9-2.7)
[2020-09-30] MEDS: Pantoprazole VIAL 40 MG VIAL IV SCH ×2 (08:15→20:42)
[2020-09-30] MEDS: HYDROmorphone 0.5 MG/0.5 ML SYRINGE IV SLOW PU PRN ×3 (12:45→22:39)
[2020-09-30] MEDS ORDERED: Magnesium Sulf 4 GM/100 ML IV 4,000 MG/100 ML BAG IVPB ONE (14:45)
[2020-09-30] MEDS: Thiamine 100 MG/ML 2 ml VIAL 100 MG in NS 0.9% 50 ML 50 ML IV SCH (15:24)
[2020-10-01] MEDS: Chlorhexidine MOUTHWASH 0.12% 15 ML UDC TOPICAL SCH ×4 (00:38→14:18)
[2020-10-01] MEDS: HYDROmorphone 0.5 MG/0.5 ML SYRINGE IV SLOW PU PRN ×2 (02:28→08:32)
[2020-10-01] MEDS: Heparin 5000 UNITS/ML 1 mL VIAL SUBCUT SCH ×3 (04:56→20:58)
[2020-10-01 05:59] LABS: Hematocrit 24 % (42-52); Mean Corpuscular HGB Conc 33 g/dL (31-36); Mean Corpuscular Hemoglobin 32 pg (27-31); Mean Corpuscular Volume 97 fL (80-94); Mean Platelet Volume 7.1 fL (7.4-10.4); Platelet Count 492 10^3/uL (150-450); Red Blood Count 2.51 10^6 /uL (4.18-5.48); Red Cell Distribution Width 16 % (10-15); White Blood Count 20.2 10^3/uL (3.5-10.8)
[2020-10-01 06:12] LABS: INR 1.42 (0.82-1.09)
[2020-10-01 06:15] LABS: Calcium 7.7 mg/dL (8.6-10.3); EGFR African American 166.3 (>60); EGFR Non-African American 137.4 (>60)
[2020-10-01] MEDS: ZOSYN 3.375 GM Q8H per EXTENDED INFUSION IV SCH ×3 (06:19→22:24)
[2020-10-01] MEDS: NORMOSOL-R pH 7.4 1000 mL BAG 1,000 ML IV SCH ×3 (06:30→23:30)
[2020-10-01] MEDS: Propofol 10 mg/ml 100 ML BTL 100 ML IV SCH (06:30)
[2020-10-01 07:50] LABS: ABS Eosinophils 0.5 10^3/ul (0-0.6); ABS Lymphocytes 1.2 10^3/ul (1.0-4.8); ABS Monocytes 1.8 10^3/ul (0-0.8); ABS Neutrophils 16.7 10^3/ul (1.5-7.7); Eosinophil % 2.6 %; Lymphocyte % 5.9 %
[2020-10-01] MEDS: Pantoprazole VIAL 40 MG VIAL IV SCH ×2 (08:13→20:58)
[2020-10-01] MEDS: HYDROmorphone 1 MG/1 ML SYRINGE IV SLOW PU PRN ×3 (11:29→20:58)
[2020-10-01] MEDS ORDERED: Methylene Blue 0.5 % 50 MG/10 ML AMP IV ONE (11:51)
[2020-10-01] MEDS: Ondansetron 4 mg VIAL 2 MG/ML 2 ml VIAL IV PRN (12:37)
[2020-10-01] MEDS: Thiamine 100 MG/ML 2 ml VIAL 100 MG in NS 0.9% 50 ML 50 ML IV SCH (15:55)
[2020-10-01] MEDS: SODIUM CHLORIDE CENT\\PICC SCH (17:42)
[2020-10-01] MEDS: TPN CENT\\PICC SCH (17:42)
[2020-10-01] MEDS: [UNRECOGNIZED DRUG - OTHER] CENT\\PICC SCH (17:42)
[2020-10-01] MEDS: POTASSIUM CHLORIDE TPN CENT\\PICC SCH (17:42)
[2020-10-01] MEDS: Morphine 2 MG/ML SYRINGE IV PRN ×2 (19:37→23:02)
[2020-10-02] MEDS: HYDROmorphone 1 MG/1 ML SYRINGE IV SLOW PU PRN ×6 (01:00→21:26)
[2020-10-02] MEDS: Morphine 2 MG/ML SYRINGE IV PRN ×4 (03:37→20:19)
[2020-10-02 05:33] LABS: Hematocrit 25 % (42-52); Mean Corpuscular HGB Conc 33 g/dL (31-36); Mean Corpuscular Hemoglobin 32 pg (27-31); Mean Corpuscular Volume 97 fL (80-94); Mean Platelet Volume 7.1 fL (7.4-10.4); Platelet Count 523 10^3/uL (150-450); Red Blood Count 2.54 10^6 /uL (4.18-5.48); Red Cell Distribution Width 16 % (10-15); White Blood Count 16.2 10^3/uL (3.5-10.8)
[2020-10-02 05:56] LABS: ABS Basophils 0.1 10^3/ul (0-0.2); ABS Eosinophils 0.4 10^3/ul (0-0.6); ABS Lymphocytes 1.2 10^3/ul (1.0-4.8); ABS Monocytes 1.6 10^3/ul (0-0.8); ABS Neutrophils 12.9 10^3/ul (1.5-7.7); Eosinophil % 2.8 %; Lymphocyte % 7.5 %
[2020-10-02] MEDS: ZOSYN 3.375 GM Q8H per EXTENDED INFUSION IV SCH ×3 (06:26→21:25)
[2020-10-02] MEDS: Heparin 5000 UNITS/ML 1 mL VIAL SUBCUT SCH ×3 (06:26→21:26)
[2020-10-02 06:53] LABS: Calcium 7.7 mg/dL (8.6-10.3); Magnesium 1.6 mg/dL (1.9-2.7); Potassium 4.5 mmol/L (3.5-5.0)
[2020-10-02 06:59] LABS: EGFR African American 172.9 (>60); EGFR Non-African American 142.9 (>60)
[2020-10-02] MEDS: NORMOSOL-R pH 7.4 1000 mL BAG 1,000 ML IV SCH (07:36)
[2020-10-02] MEDS: Pantoprazole VIAL 40 MG VIAL IV SCH ×2 (08:37→20:03)
[2020-10-02] MEDS ORDERED: Magnesium Sulf 4 GM/100 ML IV 4,000 MG/100 ML BAG IVPB ONE (09:00)
[2020-10-02] MEDS: Thiamine 100 MG/ML 2 ml VIAL 100 MG in NS 0.9% 50 ML 50 ML IV SCH (16:33)
[2020-10-02] MEDS: [UNRECOGNIZED DRUG - OTHER] CENT\\PICC SCH (17:06)
[2020-10-02] MEDS: TPN CENT\\PICC SCH (17:06)
[2020-10-02] MEDS: POTASSIUM CHLORIDE TPN CENT\\PICC SCH (17:06)
[2020-10-02] MEDS: SODIUM CHLORIDE CENT\\PICC SCH (17:06)
[2020-10-02] MEDS ORDERED: NORMOSOL-R pH 7.4 1000 mL BAG 1,000 ML IV SCH (23:00)
[2020-10-03] MEDS: Morphine 2 MG/ML SYRINGE IV PRN ×7 (00:18→21:35)
[2020-10-03] MEDS: HYDROmorphone 1 MG/1 ML SYRINGE IV SLOW PU PRN ×4 (01:50→23:59)
[2020-10-03 05:55] LABS: ABS Basophils 0.1 10^3/ul (0-0.2); ABS Eosinophils 0.5 10^3/ul (0-0.6); ABS Lymphocytes 1.4 10^3/ul (1.0-4.8); ABS Monocytes 1.5 10^3/ul (0-0.8); ABS Neutrophils 11.9 10^3/ul (1.5-7.7); Eosinophil % 2.9 %; Hematocrit 22 % (42-52); Hemoglobin 7.4 g/dL (14.0-18.0); Lymphocyte % 9.4 %; Mean Corpuscular HGB Conc 34 g/dL (31-36); Mean Corpuscular Hemoglobin 32 pg (27-31); Mean Corpuscular Volume 96 fL (80-94); Mean Platelet Volume 7.1 fL (7.4-10.4); Platelet Count 491 10^3/uL (150-450); Red Blood Count 2.31 10^6 /uL (4.18-5.48); Red Cell Distribution Width 16 % (10-15); White Blood Count 15.4 10^3/uL (3.5-10.8)
[2020-10-03 06:01] LABS: INR 1.4 (0.82-1.09)
[2020-10-03] MEDS: Heparin 5000 UNITS/ML 1 mL VIAL SUBCUT SCH ×3 (06:08→21:35)
[2020-10-03] MEDS: ZOSYN 3.375 GM Q8H per EXTENDED INFUSION IV SCH ×3 (06:08→21:35)
[2020-10-03 06:14] LABS: Creatine Kinase < 10 U/L (10-223); Magnesium 1.6 mg/dL (1.9-2.7)
[2020-10-03] MEDS: Pantoprazole VIAL 40 MG VIAL IV SCH ×2 (07:49→19:24)
[2020-10-03 08:37] LABS: Anion Gap 5 mmol/L (2-11); CO2 Carbon Dioxide 24 mmol/L (22-32); Calcium 7.7 mg/dL (8.6-10.3); Chloride 106 mmol/L (101-111); Potassium 4.6 mmol/L (3.5-5.0); Sodium 135 mmol/L (135-145)
[2020-10-03 08:42] LABS: Blood Urea Nitrogen 11 mg/dL (6-24); EGFR African American 183.9 (>60); EGFR Non-African American 151.9 (>60); Glucose 102 mg/dL (70-100); Phosphorus 3.6 mg/dL (2.5-5.0)
[2020-10-03] MEDS ORDERED: Magnesium Sulf 4 GM/100 ML IV 4,000 MG/100 ML BAG IVPB ONE (09:36)
[2020-10-04] MEDS: HYDROmorphone 1 MG/1 ML SYRINGE IV SLOW PU PRN ×4 (04:35→19:06)
[2020-10-04 04:49] LABS: Hematocrit 21 % (42-52); Hemoglobin 7.4 g/dL (14.0-18.0); Mean Corpuscular HGB Conc 35 g/dL (31-36); Mean Corpuscular Hemoglobin 33 pg (27-31); Mean Corpuscular Volume 94 fL (80-94); Mean Platelet Volume 6.8 fL (7.4-10.4); Platelet Count 488 10^3/uL (150-450); Red Blood Count 2.26 10^6 /uL (4.18-5.48); Red Cell Distribution Width 16 % (10-15); White Blood Count 13.5 10^3/uL (3.5-10.8)
[2020-10-04] MEDS: ZOSYN 3.375 GM Q8H per EXTENDED INFUSION IV SCH ×3 (05:01→21:54)
[2020-10-04] MEDS: Heparin 5000 UNITS/ML 1 mL VIAL SUBCUT SCH ×3 (05:04→20:48)
[2020-10-04 05:07] LABS: Calcium 8.1 mg/dL (8.6-10.3); EGFR African American 151.6 (>60); EGFR Non-African American 125.3 (>60); Magnesium 1.6 mg/dL (1.9-2.7); Phosphorus 5.3 mg/dL (2.5-5.0); Potassium 4.5 mmol/L (3.5-5.0)
[2020-10-04] MEDS ORDERED: Magnesium Sulfate IV 3 GM in NS 0.9% 100 ml BAG 100 ML IVPB ONE (08:00)
[2020-10-04] MEDS: Morphine 2 MG/ML SYRINGE IV PRN ×4 (08:01→20:49)
[2020-10-04] MEDS: Pantoprazole VIAL 40 MG VIAL IV SCH ×2 (08:02→20:48)
[2020-10-04] MEDS: Multivitamins/Minerals TAB SCH (08:03)
[2020-10-04] MEDS ORDERED: Lactated Ringers 1000 ml BAG 1,000 ML IV ONE (08:12)
[2020-10-04 14:31] LABS: C Reactive Protein 115.42 mg/L (<8.01)
[2020-10-05] MEDS: HYDROmorphone 1 MG/1 ML SYRINGE IV SLOW PU PRN ×4 (01:55→22:07)
[2020-10-05] MEDS: ZOSYN 3.375 GM Q8H per EXTENDED INFUSION IV SCH ×2 (05:17→13:49)
[2020-10-05] MEDS: Morphine 2 MG/ML SYRINGE IV PRN ×5 (05:17→23:05)
[2020-10-05] MEDS: Heparin 5000 UNITS/ML 1 mL VIAL SUBCUT SCH ×3 (05:28→22:07)
[2020-10-05 06:37] LABS: ABS Basophils 0.1 10^3/ul (0-0.2); ABS Eosinophils 0.4 10^3/ul (0-0.6); ABS Lymphocytes 1.3 10^3/ul (1.0-4.8); ABS Monocytes 1.4 10^3/ul (0-0.8); ABS Neutrophils 10.7 10^3/ul (1.5-7.7); Eosinophil % 3.2 %; Hematocrit 24 % (42-52); Lymphocyte % 9.3 %; Mean Corpuscular HGB Conc 34 g/dL (31-36); Mean Corpuscular Hemoglobin 32 pg (27-31); Mean Corpuscular Volume 95 fL (80-94); Mean Platelet Volume 7.4 fL (7.4-10.4); Platelet Count 532 10^3/uL (150-450); Red Cell Distribution Width 16 % (10-15); White Blood Count 13.9 10^3/uL (3.5-10.8)
[2020-10-05 06:55] LABS: Albumin 2.1 g/dL (3.2-5.2); Albumin/Globulin Ratio 0.5 (1-3); Calcium 8.2 mg/dL (8.6-10.3); EGFR African American 108.3 (>60); EGFR Non-African American 89.5 (>60); Globulin 4.2 g/dL (2-4); Magnesium 1.6 mg/dL (1.9-2.7); Potassium 4.5 mmol/L (3.5-5.0); Total Bilirubin 0.5 mg/dL (0.2-1.0); Total Protein 6.3 g/dL (6.4-8.9)
[2020-10-05] MEDS ORDERED: Iohexol 300 (CONTRAST) 10 ML SDV IV ONE (08:42)
[2020-10-05] MEDS: Multivitamins/Minerals TAB SCH (08:50)
[2020-10-05] MEDS: Pantoprazole VIAL 40 MG VIAL IV SCH ×2 (08:51→19:58)
[2020-10-05] MEDS ORDERED: Magnesium Sulf 4 GM/100 ML IV 4,000 MG/100 ML BAG IVPB ONE (11:00)
[2020-10-05] MEDS ORDERED: methylPREDNISolone SOD 40 mg/ml 1 ml VIAL IV ONE (18:05)
[2020-10-05] MEDS: diPHENhydraMINE IV 50 MG/ML 1 ml VIAL (BENADRYL) IV PRN ×2 (18:30→23:04)
[2020-10-05] MEDS: Oxacillin 2 GM in NS 0.9% 100 ml BAG 100 ML IVPB SCH (22:08)
[2020-10-06] MEDS: Morphine 2 MG/ML SYRINGE IV PRN ×4 (01:26→14:48)
[2020-10-06] MEDS: Oxacillin 2 GM in NS 0.9% 100 ml BAG 100 ML IVPB SCH ×6 (01:32→23:11)
[2020-10-06] MEDS: HYDROmorphone 1 MG/1 ML SYRINGE IV SLOW PU PRN ×2 (02:35→07:48)
[2020-10-06] MEDS: Heparin 5000 UNITS/ML 1 mL VIAL SUBCUT SCH ×3 (05:10→23:13)
[2020-10-06 05:37] LABS: Hematocrit 24 % (42-52); Hemoglobin 8.1 g/dL (14.0-18.0); Mean Corpuscular HGB Conc 34 g/dL (31-36); Mean Corpuscular Hemoglobin 32 pg (27-31); Mean Corpuscular Volume 96 fL (80-94); Mean Platelet Volume 7.1 fL (7.4-10.4); Platelet Count 513 10^3/uL (150-450); Red Blood Count 2.49 10^6 /uL (4.18-5.48); Red Cell Distribution Width 16 % (10-15); White Blood Count 7.2 10^3/uL (3.5-10.8)
[2020-10-06 06:01] LABS: Calcium 8.4 mg/dL (8.6-10.3); EGFR African American 111.3 (>60); EGFR Non-African American 91.9 (>60); Magnesium 1.8 mg/dL (1.9-2.7); Potassium 4.1 mmol/L (3.5-5.0)
[2020-10-06] MEDS ORDERED: Magnesium Sulfate IV 3 GM in NS 0.9% 100 ml BAG 100 ML IVPB ONE (06:22)
[2020-10-06] MEDS: Pantoprazole VIAL 40 MG VIAL IV SCH ×2 (07:49→20:33)
[2020-10-06] MEDS: Multivitamins/Minerals TAB SCH (07:49)
[2020-10-06] MEDS: diPHENhydraMINE IV 50 MG/ML 1 ml VIAL (BENADRYL) IV PRN (07:52)
[2020-10-06 08:20] LABS: C Reactive Protein 106.37 mg/L (<8.01)
[2020-10-06] MEDS ORDERED: methylPREDNISolone SOD 40 mg/ml 1 ml VIAL IV ONE (09:30)
[2020-10-06] MEDS: HYDROmorphone 0.5 MG/0.5 ML SYRINGE IV SLOW PU PRN (17:40)
[2020-10-07] MEDS: Oxacillin 2 GM in NS 0.9% 100 ml BAG 100 ML IVPB SCH ×6 (02:29→22:24)
[2020-10-07] MEDS: Heparin 5000 UNITS/ML 1 mL VIAL SUBCUT SCH ×3 (05:33→22:26)
[2020-10-07 05:48] LABS: Hematocrit 24 % (42-52); Hemoglobin 8.1 g/dL (14.0-18.0); Mean Corpuscular HGB Conc 34 g/dL (31-36); Mean Corpuscular Hemoglobin 32 pg (27-31); Mean Corpuscular Volume 95 fL (80-94); Mean Platelet Volume 7.3 fL (7.4-10.4); Platelet Count 532 10^3/uL (150-450); Red Cell Distribution Width 16 % (10-15)
[2020-10-07 06:27] LABS: Calcium 8.4 mg/dL (8.6-10.3); EGFR African American 117.6 (>60); EGFR Non-African American 97.2 (>60); Potassium 3.7 mmol/L (3.5-5.0)
[2020-10-07] MEDS: Pantoprazole VIAL 40 MG VIAL IV SCH ×2 (08:20→22:23)
[2020-10-07] MEDS: Ondansetron 4 mg VIAL 2 MG/ML 2 ml VIAL IV PRN (10:30)
[2020-10-07] MEDS: Multivitamins/Minerals TAB SCH (10:33)
[2020-10-07] MEDS: HYDROmorphone 0.5 MG/0.5 ML SYRINGE IV SLOW PU PRN (17:19)
[2020-10-08] MEDS: Oxacillin 2 GM in NS 0.9% 100 ml BAG 100 ML IVPB SCH ×6 (01:49→23:44)
[2020-10-08] MEDS: Heparin 5000 UNITS/ML 1 mL VIAL SUBCUT SCH ×3 (05:50→22:17)
[2020-10-08] MEDS: Morphine 2 MG/ML SYRINGE IV PRN ×3 (06:34→20:32)
[2020-10-08 06:45] LABS: ABS Basophils 0.1 10^3/ul (0-0.2); ABS Eosinophils 0.2 10^3/ul (0-0.6); ABS Lymphocytes 1.6 10^3/ul (1.0-4.8); ABS Monocytes 1.4 10^3/ul (0-0.8); ABS Neutrophils 16.1 10^3/ul (1.5-7.7); Eosinophil % 0.8 %; Hematocrit 30 % (42-52); Mean Corpuscular HGB Conc 33 g/dL (31-36); Mean Corpuscular Hemoglobin 32 pg (27-31); Mean Corpuscular Volume 97 fL (80-94); Mean Platelet Volume 6.8 fL (7.4-10.4); Platelet Count 602 10^3/uL (150-450); Red Blood Count 3.14 10^6 /uL (4.18-5.48); Red Cell Distribution Width 16 % (10-15); White Blood Count 19.3 10^3/uL (3.5-10.8)
[2020-10-08 06:59] LABS: Calcium 8.7 mg/dL (8.6-10.3); EGFR African American 128.5 (>60); EGFR Non-African American 106.2 (>60)
[2020-10-08 08:05] LABS: Magnesium 1.4 mg/dL (1.9-2.7)
[2020-10-08] MEDS: Multivitamins/Minerals TAB SCH (10:18)
[2020-10-08] MEDS: Pantoprazole VIAL 40 MG VIAL IV SCH ×2 (10:18→20:32)
[2020-10-08] MEDS: Alteplase (CATHFLO) 2 MG VIAL IV ONE (11:37)
[2020-10-08] MEDS ORDERED: methylPREDNISolone SOD 40 mg/ml 1 ml VIAL IV ONE (11:53)
[2020-10-08] MEDS ORDERED: diPHENhydraMINE IV 50 MG/ML 1 ml VIAL (BENADRYL) IV ONE (11:54)
[2020-10-08] MEDS ORDERED: methylPREDNISolone SOD 40 mg/ml 1 ml VIAL ONE (12:16)
[2020-10-08] MEDS ORDERED: Magnesium Sulf 4 GM/100 ML IV 4,000 MG/100 ML BAG IVPB ONE (14:00)
[2020-10-08] MEDS: Phenol 1.4% Throat Spray 177 ml BTL MT PRN (18:15)
[2020-10-09] MEDS: Oxacillin 2 GM in NS 0.9% 100 ml BAG 100 ML IVPB SCH ×6 (03:43→23:03)
[2020-10-09] MEDS: Morphine 2 MG/ML SYRINGE IV PRN ×7 (03:43→23:04)
[2020-10-09] MEDS: Heparin 5000 UNITS/ML 1 mL VIAL SUBCUT SCH ×3 (05:36→23:03)
[2020-10-09 05:50] LABS: ABS Basophils 0.1 10^3/ul (0-0.2); ABS Eosinophils 0.4 10^3/ul (0-0.6); ABS Lymphocytes 2.3 10^3/ul (1.0-4.8); ABS Monocytes 1.2 10^3/ul (0-0.8); ABS Neutrophils 9.4 10^3/ul (1.5-7.7); Eosinophil % 2.7 %; Hematocrit 27 % (42-52); Hemoglobin 8.7 g/dL (14.0-18.0); Lymphocyte % 17.3 %; Mean Corpuscular HGB Conc 32 g/dL (31-36); Mean Corpuscular Hemoglobin 31 pg (27-31); Mean Corpuscular Volume 97 fL (80-94); Mean Platelet Volume 6.9 fL (7.4-10.4); Nucleated Red Blood Cells % 0.1; Platelet Count 501 10^3/uL (150-450); Red Blood Count 2.77 10^6 /uL (4.18-5.48); Red Cell Distribution Width 16 % (10-15); White Blood Count 13.4 10^3/uL (3.5-10.8)
[2020-10-09 06:06] LABS: Calcium 8.2 mg/dL (8.6-10.3); EGFR African American 114.4 (>60); EGFR Non-African American 94.5 (>60); Magnesium 2.2 mg/dL (1.9-2.7); Potassium 4.2 mmol/L (3.5-5.0)
[2020-10-09] MEDS: Pantoprazole VIAL 40 MG VIAL IV SCH ×2 (08:15→20:09)
[2020-10-09] MEDS: Multivitamins/Minerals TAB SCH (09:45)
[2020-10-09] MEDS: Phenol 1.4% Throat Spray 177 ml BTL MT PRN (10:01)
[2020-10-09 15:31] LABS: C Reactive Protein 51.25 mg/L (<8.01)
[2020-10-10] MEDS: Oxacillin 2 GM in NS 0.9% 100 ml BAG 100 ML IVPB SCH ×5 (03:19→20:54)
[2020-10-10] MEDS: Morphine 2 MG/ML SYRINGE IV PRN ×8 (03:21→19:32)
[2020-10-10] MEDS: Ondansetron 4 mg VIAL 2 MG/ML 2 ml VIAL IV PRN (06:06)
[2020-10-10] MEDS: Heparin 5000 UNITS/ML 1 mL VIAL SUBCUT SCH ×2 (06:12→14:43)
[2020-10-10 06:29] LABS: ABS Basophils 0.1 10^3/ul (0-0.2); ABS Eosinophils 0.8 10^3/ul (0-0.6); ABS Monocytes 1.5 10^3/ul (0-0.8); ABS Neutrophils 15.6 10^3/ul (1.5-7.7); Eosinophil % 3.8 %; Hematocrit 28 % (42-52); Hemoglobin 9.2 g/dL (14.0-18.0); Lymphocyte % 10.2 %; Mean Corpuscular HGB Conc 34 g/dL (31-36); Mean Corpuscular Hemoglobin 32 pg (27-31); Mean Corpuscular Volume 96 fL (80-94); Mean Platelet Volume 7.2 fL (7.4-10.4); Platelet Count 568 10^3/uL (150-450); Red Blood Count 2.85 10^6 /uL (4.18-5.48); Red Cell Distribution Width 17 % (10-15)
[2020-10-10 06:47] LABS: C Reactive Protein 31.13 mg/L (<8.01); Calcium 8.2 mg/dL (8.6-10.3); EGFR African American 108.3 (>60); EGFR Non-African American 89.5 (>60); Magnesium 1.6 mg/dL (1.9-2.7); Phosphorus 4.6 mg/dL (2.5-5.0)
[2020-10-10] MEDS: Pantoprazole VIAL 40 MG VIAL IV SCH ×2 (08:17→21:00)
[2020-10-10] MEDS: Multivitamins/Minerals TAB SCH (08:58)
[2020-10-11] MEDS: Oxacillin 2 GM in NS 0.9% 100 ml BAG 100 ML IVPB SCH ×7 (00:15→23:02)
[2020-10-11] MEDS: Morphine 2 MG/ML SYRINGE IV PRN ×8 (02:51→23:05)
[2020-10-11 07:56] LABS: ABS Basophils 0.1 10^3/ul (0-0.2); ABS Eosinophils 0.8 10^3/ul (0-0.6); ABS Lymphocytes 1.9 10^3/ul (1.0-4.8); ABS Monocytes 1.3 10^3/ul (0-0.8); ABS Neutrophils 12.8 10^3/ul (1.5-7.7); Hematocrit 26 % (42-52); Hemoglobin 8.7 g/dL (14.0-18.0); Lymphocyte % 11.1 %; Mean Corpuscular HGB Conc 34 g/dL (31-36); Mean Corpuscular Hemoglobin 32 pg (27-31); Mean Corpuscular Volume 95 fL (80-94); Platelet Count 492 10^3/uL (150-450); Red Blood Count 2.71 10^6 /uL (4.18-5.48); Red Cell Distribution Width 17 % (10-15); White Blood Count 16.9 10^3/uL (3.5-10.8)
[2020-10-11] MEDS: Pantoprazole VIAL 40 MG VIAL IV SCH ×2 (08:04→20:30)
[2020-10-11] MEDS: Multivitamins/Minerals TAB SCH (09:01)
[2020-10-11 09:27] LABS: Calcium 7.9 mg/dL (8.6-10.3); EGFR African American 128.5 (>60); EGFR Non-African American 106.2 (>60); Magnesium 1.4 mg/dL (1.9-2.7); Potassium 4.3 mmol/L (3.5-5.0)
[2020-10-11] MEDS ORDERED: Magnesium Sulf 4 GM/100 ML IV 4,000 MG/100 ML BAG IVPB ONE (11:30)
[2020-10-12] MEDS: Oxacillin 2 GM in NS 0.9% 100 ml BAG 100 ML IVPB SCH ×6 (02:08→21:43)
[2020-10-12] MEDS: Morphine 2 MG/ML SYRINGE IV PRN ×10 (02:09→23:24)
[2020-10-12 07:13] LABS: ABS Lymphocytes 1.8 10^3/ul (1.0-4.8); ABS Monocytes 1.3 10^3/ul (0-0.8); ABS Neutrophils 12.1 10^3/ul (1.5-7.7); Eosinophil % 6.4 %; Hematocrit 26 % (42-52); Hemoglobin 8.6 g/dL (14.0-18.0); Lymphocyte % 11.2 %; Mean Corpuscular HGB Conc 33 g/dL (31-36); Mean Corpuscular Hemoglobin 32 pg (27-31); Mean Corpuscular Volume 97 fL (80-94); Mean Platelet Volume 7.2 fL (7.4-10.4); Platelet Count 527 10^3/uL (150-450); Red Blood Count 2.68 10^6 /uL (4.18-5.48); Red Cell Distribution Width 17 % (10-15); White Blood Count 16.3 10^3/uL (3.5-10.8)
[2020-10-12 07:26] LABS: Albumin 2.4 g/dL (3.2-5.2); Albumin/Globulin Ratio 0.6 (1-3); Calcium 8.1 mg/dL (8.6-10.3); EGFR African American 122.9 (>60); EGFR Non-African American 101.5 (>60); Globulin 3.8 g/dL (2-4); Magnesium 1.9 mg/dL (1.9-2.7); Potassium 4.4 mmol/L (3.5-5.0); Total Bilirubin 0.3 mg/dL (0.2-1.0); Total Protein 6.2 g/dL (6.4-8.9)
[2020-10-12] MEDS: Pantoprazole VIAL 40 MG VIAL IV SCH ×2 (08:55→19:51)
[2020-10-12] MEDS: Multivitamins/Minerals TAB SCH (09:06)
[2020-10-12] MEDS: Ondansetron 4 mg VIAL 2 MG/ML 2 ml VIAL IV PRN (22:23)
[2020-10-13] MEDS: Oxacillin 2 GM in NS 0.9% 100 ml BAG 100 ML IVPB SCH ×6 (02:05→22:07)
[2020-10-13] MEDS: Morphine 2 MG/ML SYRINGE IV PRN ×9 (03:44→22:05)
[2020-10-13] MEDS: Ondansetron 4 mg VIAL 2 MG/ML 2 ml VIAL IV PRN ×2 (04:23→22:07)
[2020-10-13 06:18] LABS: ABS Basophils 0.1 10^3/ul (0-0.2); ABS Eosinophils 0.9 10^3/ul (0-0.6); ABS Lymphocytes 1.3 10^3/ul (1.0-4.8); ABS Monocytes 1.5 10^3/ul (0-0.8); Eosinophil % 5.1 %; Hematocrit 28 % (42-52); Hemoglobin 9.1 g/dL (14.0-18.0); Lymphocyte % 7.3 %; Mean Corpuscular HGB Conc 33 g/dL (31-36); Mean Corpuscular Hemoglobin 32 pg (27-31); Mean Corpuscular Volume 97 fL (80-94); Mean Platelet Volume 7.2 fL (7.4-10.4); Platelet Count 507 10^3/uL (150-450); Red Blood Count 2.84 10^6 /uL (4.18-5.48); Red Cell Distribution Width 17 % (10-15); White Blood Count 17.8 10^3/uL (3.5-10.8)
[2020-10-13 06:32] LABS: EGFR African American 121.1 (>60); Potassium 4.4 mmol/L (3.5-5.0)
[2020-10-13 08:18] LABS: C Reactive Protein 59.38 mg/L (<8.01)
[2020-10-13] MEDS: Pantoprazole VIAL 40 MG VIAL IV SCH ×2 (08:25→20:46)
[2020-10-13] MEDS: Multivitamins/Minerals TAB SCH (08:25)
[2020-10-14 00:57] LABS: Urine Appearance Cloudy; Urine Bilirubin Negative (Negative); Urine Blood Negative (Negative); Urine Color Yellow; Urine Glucose Negative (Negative); Urine Ketones Negative (Negative); Urine Nitrite Negative (Negative); Urine Protein Negative (Negative); Urine Specific Gravity 1.018 (1.002-1.030); Urine Urobilinogen Negative (Negative)
[2020-10-14] MEDS: Morphine 2 MG/ML SYRINGE IV PRN ×7 (01:17→17:53)
[2020-10-14] MEDS: Oxacillin 2 GM in NS 0.9% 100 ml BAG 100 ML IVPB SCH ×6 (02:13→23:50)
[2020-10-14 05:15] LABS: C Reactive Protein 113.57 mg/L (<8.01); Calcium 8.2 mg/dL (8.6-10.3); EGFR African American 134.7 (>60); EGFR Non-African American 111.4 (>60); Magnesium 1.5 mg/dL (1.9-2.7); Potassium 4.4 mmol/L (3.5-5.0)
[2020-10-14 07:28] LABS: Hematocrit 25 % (42-52); Hemoglobin 8.5 g/dL (14.0-18.0); Mean Corpuscular HGB Conc 34 g/dL (31-36); Mean Corpuscular Hemoglobin 33 pg (27-31); Mean Corpuscular Volume 96 fL (80-94); Platelet Count 485 10^3/uL (150-450); Red Blood Count 2.63 10^6 /uL (4.18-5.48); Red Cell Distribution Width 17 % (10-15); White Blood Count 15.9 10^3/uL (3.5-10.8)
[2020-10-14 07:37] LABS: ABS Basophils 0.1 10^3/ul (0-0.2); ABS Eosinophils 0.5 10^3/ul (0-0.6); ABS Lymphocytes 1.6 10^3/ul (1.0-4.8); ABS Monocytes 1.8 10^3/ul (0-0.8); ABS Neutrophils 11.9 10^3/ul (1.5-7.7); Lymphocyte % 10.2 %
[2020-10-14] MEDS ORDERED: Magnesium Sulf 4 GM/100 ML IV 4,000 MG/100 ML BAG IVPB ONE (07:51)
[2020-10-14] MEDS: Multivitamins/Minerals TAB SCH (09:21)
[2020-10-14] MEDS: Pantoprazole VIAL 40 MG VIAL IV SCH ×2 (09:23→20:22)
[2020-10-14] MEDS ORDERED: methylPREDNISolone SOD 40 mg/ml 1 ml VIAL IV ONE (19:00)
[2020-10-14] MEDS ORDERED: diPHENhydraMINE IV 50 MG/ML 1 ml VIAL (BENADRYL) IV ONE (19:01)
[2020-10-15] MEDS: Oxacillin 2 GM in NS 0.9% 100 ml BAG 100 ML IVPB SCH ×7 (03:12→23:28)
[2020-10-15] MEDS: Morphine 2 MG/ML SYRINGE IV PRN ×6 (05:04→21:58)
[2020-10-15] MEDS: Multivitamins/Minerals TAB SCH (08:43)
[2020-10-15] MEDS: Pantoprazole VIAL 40 MG VIAL IV SCH ×2 (08:45→19:58)
[2020-10-15] MEDS ORDERED: methylPREDNISolone SOD 40 mg/ml 1 ml VIAL IV ONE (09:03)
[2020-10-15 09:14] LABS: Hematocrit 27 % (42-52); Hemoglobin 8.8 g/dL (14.0-18.0); Mean Corpuscular HGB Conc 33 g/dL (31-36); Mean Corpuscular Hemoglobin 32 pg (27-31); Mean Corpuscular Volume 97 fL (80-94); Mean Platelet Volume 7.4 fL (7.4-10.4); Platelet Count 545 10^3/uL (150-450); Red Blood Count 2.76 10^6 /uL (4.18-5.48); Red Cell Distribution Width 17 % (10-15); White Blood Count 16.9 10^3/uL (3.5-10.8)
[2020-10-15 09:18] LABS: ABS Eosinophils 0.4 10^3/ul (0-0.6); ABS Lymphocytes 1.6 10^3/ul (1.0-4.8); ABS Monocytes 1.9 10^3/ul (0-0.8); Eosinophil % 2.2 %; Lymphocyte % 9.3 %
[2020-10-15 09:28] LABS: Calcium 8.1 mg/dL (8.6-10.3); EGFR African American 143.9 (>60); EGFR Non-African American 118.9 (>60); Magnesium 1.6 mg/dL (1.9-2.7); Potassium 4.3 mmol/L (3.5-5.0)
[2020-10-15] MEDS ORDERED: Magnesium Sulf 4 GM/100 ML IV 4,000 MG/100 ML BAG IVPB ONE (10:41)
[2020-10-15] MEDS ORDERED: diPHENhydraMINE IV 50 MG/ML 1 ml VIAL (BENADRYL) IV ONE (11:06)
[2020-10-15] MEDS ORDERED: Iohexol 300 (CONTRAST) 10 ML SDV IV ONE (13:40)
[2020-10-16] MEDS: Morphine 2 MG/ML SYRINGE IV PRN ×8 (02:36→23:58)
[2020-10-16] MEDS: Oxacillin 2 GM in NS 0.9% 100 ml BAG 100 ML IVPB SCH ×6 (04:23→23:59)
[2020-10-16] MEDS: Pantoprazole VIAL 40 MG VIAL IV SCH (08:08)
[2020-10-16] MEDS: Multivitamins/Minerals TAB SCH (10:06)
[2020-10-16 11:03] LABS: INR 1.44 (0.82-1.09)
[2020-10-16] MEDS ORDERED: fentaNYL 100 mcg/2 ml 50 MCG/ML VIAL ONE (13:29)
[2020-10-17] MEDS: Morphine 2 MG/ML SYRINGE IV PRN ×8 (02:07→21:59)
[2020-10-17] MEDS: Oxacillin 2 GM in NS 0.9% 100 ml BAG 100 ML IVPB SCH ×6 (04:02→23:15)
[2020-10-17] MEDS: Multivitamins/Minerals TAB SCH (09:03)
[2020-10-17] MEDS: Pantoprazole VIAL 40 MG VIAL IV SCH (09:03)
[2020-10-17 10:44] LABS: ABS Basophils 0.1 10^3/ul (0-0.2); ABS Eosinophils 0.4 10^3/ul (0-0.6); ABS Lymphocytes 1.2 10^3/ul (1.0-4.8); ABS Monocytes 1.2 10^3/ul (0-0.8); ABS Neutrophils 10.1 10^3/ul (1.5-7.7); Eosinophil % 3.1 %; Hematocrit 29 % (42-52); Hemoglobin 9.2 g/dL (14.0-18.0); Lymphocyte % 9.5 %; Mean Corpuscular HGB Conc 32 g/dL (31-36); Mean Corpuscular Hemoglobin 31 pg (27-31); Mean Corpuscular Volume 96 fL (80-94); Mean Platelet Volume 7.1 fL (7.4-10.4); Platelet Count 622 10^3/uL (150-450); Red Blood Count 2.96 10^6 /uL (4.18-5.48); Red Cell Distribution Width 17 % (10-15); White Blood Count 13.1 10^3/uL (3.5-10.8)
[2020-10-17 10:59] LABS: Albumin 2.4 g/dL (3.2-5.2); Albumin/Globulin Ratio 0.5 (1-3); Calcium 8.3 mg/dL (8.6-10.3); EGFR African American 134.7 (>60); EGFR Non-African American 111.4 (>60); Globulin 4.4 g/dL (2-4); Magnesium 1.5 mg/dL (1.9-2.7); Phosphorus 4.6 mg/dL (2.5-5.0); Total Bilirubin 0.3 mg/dL (0.2-1.0); Total Protein 6.8 g/dL (6.4-8.9)
[2020-10-17] MEDS ORDERED: Magnesium Sulfate IV 1GM/100ML 1 GM/100 ML BAG IV ONE (11:59)
[2020-10-18] MEDS: Morphine 2 MG/ML SYRINGE IV PRN ×8 (00:52→23:11)
[2020-10-18] MEDS: Oxacillin 2 GM in NS 0.9% 100 ml BAG 100 ML IVPB SCH ×6 (03:21→23:13)
[2020-10-18] MEDS ORDERED: Magnesium Sulf 4 GM/100 ML IV 4,000 MG/100 ML BAG IVPB ONE (06:18)
[2020-10-18] MEDS: Multivitamins/Minerals TAB SCH (09:35)
[2020-10-18] MEDS: Pantoprazole VIAL 40 MG VIAL IV SCH (09:35)
[2020-10-19] MEDS: Morphine 2 MG/ML SYRINGE IV PRN ×8 (02:16→21:27)
[2020-10-19] MEDS: Oxacillin 2 GM in NS 0.9% 100 ml BAG 100 ML IVPB SCH ×5 (03:17→21:25)
[2020-10-19] MEDS: Pantoprazole VIAL 40 MG VIAL IV SCH (08:54)
[2020-10-19] MEDS: Multivitamins/Minerals TAB SCH (08:54)
[2020-10-19 10:52] LABS: Hematocrit 28 % (42-52); Hemoglobin 9.2 g/dL (14.0-18.0); Mean Corpuscular HGB Conc 33 g/dL (31-36); Mean Corpuscular Hemoglobin 31 pg (27-31); Mean Corpuscular Volume 96 fL (80-94); Mean Platelet Volume 7.2 fL (7.4-10.4); Platelet Count 679 10^3/uL (150-450); Red Blood Count 2.94 10^6 /uL (4.18-5.48); Red Cell Distribution Width 17 % (10-15); White Blood Count 16.3 10^3/uL (3.5-10.8)
[2020-10-19 10:55] LABS: ABS Basophils 0.1 10^3/ul (0-0.2); ABS Eosinophils 0.4 10^3/ul (0-0.6); ABS Lymphocytes 1.6 10^3/ul (1.0-4.8); ABS Monocytes 1.6 10^3/ul (0-0.8); ABS Neutrophils 12.6 10^3/ul (1.5-7.7); Eosinophil % 2.7 %; Lymphocyte % 9.9 %
[2020-10-19 11:26] LABS: Calcium 8.2 mg/dL (8.6-10.3); EGFR Non-African American 123.1 (>60); Magnesium 1.6 mg/dL (1.9-2.7); Potassium 4.1 mmol/L (3.5-5.0)
[2020-10-19] MEDS: DOXYcycline 100 MG in NS 0.9% 250 ml 250 ML IVPB SCH (14:27)
[2020-10-19] MEDS ORDERED: Magnesium Sulf 4 GM/100 ML IV 4,000 MG/100 ML BAG IVPB ONE (14:29)
[2020-10-19 18:28] LABS: C Reactive Protein 97.99 mg/L (<8.01)
[2020-10-20] MEDS: DOXYcycline 100 MG in NS 0.9% 250 ml 250 ML IVPB SCH ×2 (02:26→15:43)
[2020-10-20] MEDS: Oxacillin 2 GM in NS 0.9% 100 ml BAG 100 ML IVPB SCH ×5 (04:24→16:45)
[2020-10-20 06:59] LABS: Hematocrit 26 % (42-52); Hemoglobin 8.8 g/dL (14.0-18.0); Mean Corpuscular HGB Conc 34 g/dL (31-36); Mean Corpuscular Hemoglobin 32 pg (27-31); Mean Corpuscular Volume 94 fL (80-94); Mean Platelet Volume 7.2 fL (7.4-10.4); Platelet Count 693 10^3/uL (150-450); Red Blood Count 2.76 10^6 /uL (4.18-5.48); Red Cell Distribution Width 17 % (10-15); White Blood Count 15.1 10^3/uL (3.5-10.8)
[2020-10-20 07:04] LABS: C Reactive Protein 101.05 mg/L (<8.01); Calcium 8.2 mg/dL (8.6-10.3); EGFR African American 163.2 (>60); EGFR Non-African American 134.8 (>60); Magnesium 1.8 mg/dL (1.9-2.7); Potassium 3.9 mmol/L (3.5-5.0)
[2020-10-20] MEDS: Morphine 2 MG/ML SYRINGE IV PRN ×5 (07:26→17:54)
[2020-10-20] MEDS ORDERED: Magnesium Sulfate 2 gm BAG 2 GM/50 ML BAG IVPB ONE (08:45)
[2020-10-20] MEDS: Pantoprazole VIAL 40 MG VIAL IV SCH (08:48)
[2020-10-20] MEDS: Multivitamins/Minerals TAB SCH (08:48)
[2020-10-20] MEDS ORDERED: Lidocaine 2% JELLY 20 ML (for OR use) TOPICAL ONE (12:00)
[2020-10-20 17:15] VITALS: BP 101/57
== END 2020-10-20 18:15 | disposition short-term general hospital (02) | DRG 262 ==
LOC: ED 08:24 → MED 13:44 → ICU 09-19 12:30 → SSU 09-22 08:47 → ICU 09-29 07:28 → SSU 10-03 16:32
PROVIDERS: ADMIT Internal Medicine; ATTEND Surgery

== ENCOUNTER 2021-06-30 08:20 | Observation (INO) ==
[~2021-06-30 08:20] MED LIST: Buffered Lidocaine 1% SYRIN 1 ml INTRADERM ONE; Lactated Ringers 1000 ml BAG 1,000 ML IV SCH
[2021-06-30] MEDS ORDERED: Vancomycin 1000 MG in NS 0.9% 250 ML IVPB ONE (09:30)
[2021-06-30 10:10] LABS: ABS Eosinophils 0.1 10^3/ul (0-0.6); ABS Lymphocytes 1.5 10^3/ul (1.0-4.8); ABS Monocytes 0.9 10^3/ul (0-0.8); ABS Neutrophils 7.2 10^3/ul (1.5-7.7); Eosinophil % 0.8 %; Hematocrit 41 % (42-52); Hemoglobin 13.6 g/dL (14.0-18.0); Lymphocyte % 15.4 %; Mean Corpuscular HGB Conc 34 g/dL (31-36); Mean Corpuscular Hemoglobin 30 pg (27-31); Mean Corpuscular Volume 88 fL (80-94); Mean Platelet Volume 6.8 fL (7.4-10.4); Platelet Count 319 10^3/uL (150-450); Red Blood Count 4.63 10^6 /uL (4.18-5.48); Red Cell Distribution Width 16 % (10-15); White Blood Count 9.7 10^3/uL (3.5-10.8)
[2021-06-30 11:01] LABS: Calcium 9.6 mg/dL (8.6-10.3); eGFR CKD-EPI 86.7 (>60)
[2021-06-30] MEDS ORDERED: Lidocaine 2% PF 5 ML VIAL ONE ×2 (12:06→14:11)
[2021-06-30] MEDS ORDERED: Propofol 10 MG/ML 20 ML BTL ONE ×2 (12:06→14:11)
[2021-06-30] MEDS ORDERED: fentaNYL 250 mcg/5 ml 50 MCG/ML 5 ml VIAL (250 MCG) ONE ×2 (12:09→14:11)
[2021-06-30] MEDS ORDERED: Midazolam 2 mg/2 ml VIAL 1 mg/ml 2 ml VIAL (2 mg) ONE ×2 (12:10→14:11)
[2021-06-30] MEDS ORDERED: Naloxone 0.4 mg VIAL 0.4 mg/ml 1 ml VIAL IV PRN ×2 (13:49→18:55)
[2021-06-30] MEDS ORDERED: Rocuronium 50 mg VIAL 10 mg/ml 5 ml VIAL (50 mg) ONE ×2 (14:05→16:31)
[2021-06-30] MEDS ORDERED: Dexamethasone IV 4 MG/ML VIAL 1 ml VIAL ONE (14:11)
[2021-06-30] MEDS ORDERED: Ondansetron 4 mg VIAL 2 MG/ML 2 ml VIAL ONE ×2 (14:11→19:40)
[2021-06-30] MEDS ORDERED: Sevoflurane BOTTLE ONE (15:24)
[2021-06-30] MEDS ORDERED: HYDROmorphone 0.5 MG/0.5 ML SYRINGE ONE ×2 (16:31→17:41)
[2021-06-30] MEDS ORDERED: diPHENhydraMINE IV 50 MG/ML 1 ml VIAL (BENADRYL) IV PRN (18:55)
[2021-06-30] MEDS ORDERED: Ondansetron 4 mg VIAL 2 MG/ML 2 ml VIAL IV PRN ×2 (18:55→19:52)
[2021-06-30] MEDS ORDERED: DiMENhydriNATE IV 50 mg/ml 1 ml VIAL IV PUSH PRN (18:55)
[2021-06-30] MEDS ORDERED: Acetaminophen IV 1 GM/100ML 100 ML IV ONE ×2 (18:57→20:19)
[2021-06-30] MEDS ORDERED: DiMENhydriNATE IV 50 mg/ml 1 ml VIAL ONE ×2 (19:40→20:00)
[2021-06-30] MEDS ORDERED: HYDROmorphone 1 MG/1 ML SYRINGE ONE (19:40)
[2021-06-30] MEDS: HYDROmorphone 1 MG/1 ML SYRINGE IV PRN ×2 (19:44→20:13)
[2021-06-30] MEDS ORDERED: Naloxone 0.4 mg VIAL 0.4 mg/ml 1 ml VIAL IV PUSH PRN (19:49)
[2021-06-30] MEDS ORDERED: Albuterol HFA INHALER 8 gm MDI INH PRN (19:52)
[2021-06-30] MEDS: Morphine 4 MG/ML VIAL (1 ml) IV PRN ×2 (19:53→21:06)
[2021-06-30] MEDS ORDERED: Morphine 4 MG/ML VIAL (1 ml) ONE (19:53)
[2021-06-30] MEDS ORDERED: HYDROmorphone PCA 20 MG/20 ML PCA.SYRING PCA SCH (20:00)
[2021-06-30] MEDS ORDERED: fentaNYL 100 mcg/2 ml 50 MCG/ML VIAL ONE (20:00)
[2021-06-30] MEDS ORDERED: diPHENhydraMINE IV 50 MG/ML 1 ml VIAL (BENADRYL) ONE (20:03)
[2021-06-30] MEDS: fentaNYL 100 mcg/2 ml 50 MCG/ML VIAL IV PRN ×4 (20:05→21:05)
[2021-06-30] MEDS: Acetaminophen IV 1 GM/100ML 100 ML IV SCH (20:21)
[2021-06-30] MEDS: Pancrelipase 12,000 units (NF) PO SCH (23:45)
[2021-06-30] MEDS: Lactated Ringers 1000 ml BAG 1,000 ML IV SCH (23:45)
[2021-07-01] MEDS: Acetaminophen IV 1 GM/100ML 100 ML IV SCH ×4 (02:16→20:43)
[2021-07-01 06:06] LABS: Hematocrit 37 % (42-52); Hemoglobin 12.3 g/dL (14.0-18.0); Mean Corpuscular HGB Conc 33 g/dL (31-36); Mean Corpuscular Hemoglobin 30 pg (27-31); Mean Corpuscular Volume 88 fL (80-94); Mean Platelet Volume 6.8 fL (7.4-10.4); Platelet Count 279 10^3/uL (150-450); Red Blood Count 4.17 10^6 /uL (4.18-5.48); Red Cell Distribution Width 16 % (10-15); White Blood Count 15.5 10^3/uL (3.5-10.8)
[2021-07-01 06:42] LABS: Calcium 8.7 mg/dL (8.6-10.3); Potassium 4.2 mmol/L (3.5-5.0); eGFR CKD-EPI 100.7 (>60)
[2021-07-01 07:17] LABS: ABS Lymphocytes 0.9 10^3/ul (1.0-4.8); ABS Monocytes 1.6 10^3/ul (0-0.8); ABS Neutrophils 12.9 10^3/ul (1.5-7.7); Lymphocyte % 5.9 %; Nucleated Red Blood Cells % 0.1
[2021-07-01] MEDS: Pancrelipase 12,000 units (NF) PO SCH ×2 (10:59→13:53)
[2021-07-01] MEDS: Lactated Ringers 1000 ml BAG 1,000 ML IV SCH (17:10)
[2021-07-01] MEDS: HYDROmorphone 1 MG/1 ML SYRINGE IV SLOW PU PRN ×2 (17:28→21:50)
[2021-07-01] MEDS: Pancrelipase 5,000 units CAP PO SCH (23:30)
[2021-07-02] MEDS: HYDROmorphone 1 MG/1 ML SYRINGE IV SLOW PU PRN ×2 (01:56→06:01)
[2021-07-02 02:51] VITALS: BP 147/80
[2021-07-02] MEDS: Acetaminophen IV 1 GM/100ML 100 ML IV SCH ×2 (02:56→09:17)
[2021-07-02] MEDS: Pancrelipase 12,000 units (NF) PO SCH (04:49)
[2021-07-02] MEDS: Lactated Ringers 1000 ml BAG 1,000 ML IV SCH (09:19)
[2021-07-02] MEDS: Pancrelipase 5,000 units CAP PO SCH (09:20)
[2021-07-02] MEDS ORDERED: Acetaminophen IV 1 GM/100ML 100 ML IV SCH (12:00)
== END 2021-07-02 14:50 | disposition home or self-care (01) ==
LOC: OR 08:20 → SSU 19:38 → INTOOBSV 19:38
PROVIDERS: ADMIT Surgery; ATTEND Surgery